=== PATIENT | male | born 1980 | race Caucasian/White ===

== ENCOUNTER → 2017-06-15 | Outpatient (CLI) | payer OTHER ==
--- NOTE | 2017-06-16 03:13 | CT ---
EXAMINATION TYPE: CT abdomen pelvis wo con DATE OF EXAM: 06/15/2017 COMPARISON: NONE HISTORY: 37-year-old male Hematuria, painful and difficulty urinating, dysuria, renal calculi CT DLP: 2703.8 mGycm. Automated exposure control for dose reduction was used. TECHNIQUE: Contiguous axial scanning of the abdomen and pelvis without IV contrast. Coronal and sagit christopher reconstructions performed. FINDINGS: The heart is normal size without pericardial effusion. Lung bases clear without pleural effusion. Liver enlarged measuring 20.6 cm craniocaudal. Otherwise, noncontrasted. The liver, gallbladder, adre nal glands, kidneys, and pancreas show no gross abnormality. Specifically, no nephrolithiasis or hydronephrosis. Spleen mildly enlarged measuring 14.0 cm on axial series. No dilated small bowel, free fluid, or free air. Scattered small mesenteric lymph nodes are present. Appendix not discretely visualized. Mild stool burden. There is diverticulosis of the lower descendin g colon as well as the sigmoid colon. There is a 5 to 6 cm long segment of circumferential wall thickening involving the mid sigmoid colon that also has mild surrounding pericolonic fat stranding. Stranding and inflammatory change with a fi ngerlike extension of soft tissue projects and contacts the bladder dome was also supposed thickening , tiny focus of intraluminal versus intramural air, and a rounded mixed low density lesion at the fred dder dome measuring up to 4.2 cm, sagittal image 85 and coronal image 48, and axial image 145. Refer to the sagittal image 85 further fingerlike extension contiguous from the colon to the bladder dome a s well. No pelvic lymphadenopathy seen. Rectum appears normal. Bones: Mild degenerative spurring of the hips. No osseous destructive process. IMPRESSION: 1. Distal colonic diverticulosis. Findings suggest subacute diverticulitis involving the mid sigmoid . Suspect secondary complication with colovesical fistula formation and focal inflammation along the bladder dome where a tiny focus of either intramural or intraluminal air is also present. Rounded 4.2 cm low-density area here at the bladder dome could represent a mural abscess. 2. Hepatosplenomegaly (liver 20.6 cm and spleen 14.0 cm). 3. No nephrolithiasis or hydronephrosis.
== END | disposition home or self-care (01) ==
LOC: RADCTMAIN 17:31
PROVIDERS: ATTEND Family Medicine
DX: K57.30 Diverticulosis of large intestine without perforation or abscess without bleeding (principal); R16.2 Hepatomegaly with splenomegaly, not elsewhere classified
CPT/HCPCS: 74176

== ENCOUNTER 2017-06-20 10:23 | Inpatient (IN) | payer OTHER ==
[2017-06-20] MEDS ORDERED: SODIUM CHLORIDE 0.9% 1,000 ML IV STA (10:50)
[2017-06-20] MEDS ORDERED: metroNIDAZOLE-NS PMX 500 MG in SALINE 1 100ML.BAG IVPB STA (10:50)
[2017-06-20] MEDS ORDERED: LEVOFLOXACIN 750MG-D5W PMX 750 MG in DEXTROSE/WATER 1 150ML.BAG IVPB STA (10:50)
--- NOTE | 2017-06-20 11:13 | ED ---
General Adult HPI - General Chief complaint: Urogenital Stated complaint: Pelvic pain Time Seen by Provider: 06/20/17 10:35 Source: patient, RN notes reviewed Mode of arrival: ambulatory Limitations: no limitations - History of Present Illness Initial comments: This is a 37-year-old male presents emergency Department complaining that when he urinates only air comes out. Patient states for the last 3 months she's been having hematuria and recent was treated for a urinary tract infection. Patient also had a CAT scan on Wednesday but did not get the results. Patient states she has intermittent left-sided abdominal pain as well. Patient denies any current abdominal pain. Patient denies nausea vomiting or diarrhea. Patient denies any recent fever or chills. Patient denies any back pain. Patient denies any recent injury. Patient denies any recent procedures. - Related Data Allergies Allergy/AdvReac Type Severity Reaction Status Date / Time codeine Allergy Unknown Verified 06/20/17 10:42 Review of Systems ROS Statement: Those systems with pertinent positive or pertinent negative responses have been documented in the HPI. ROS Other: All systems not noted in ROS Statement are negative. Past Medical History Past Medical History: No Reported History History of Any Multi-Drug Resistant Organisms: MRSA Date of last positivie culture/infection: 2014 MDRO Source:: Right arm Past Surgical History: Back Surgery, Orthopedic Surgery Past Psychological History: No Psychological Hx Reported Smoking Status: Never smoker Past Alcohol Use History: Occasional Past Drug Use History: None Reported General Exam - General Exam Comments Initial Comments: GENERAL: Patient is well-developed and well-nourished. Patient is nontoxic and well- hydrated and is in no acute distress. ENT: Neck is soft and supple. No significant lymphadenopathy is noted. Oropharynx is clear. Moist mucous membranes. Neck has full range of motion without eliciting any pain. EYES: The sclera were anicteric and conjunctiva were pink and moist. Extraocular movements were intact and pupils were equal round and reactive to light. Eyelids were unremarkable. PULMONARY: Unlabored respirations. Good breath sounds bilaterally. No audible rales rhonchi or wheezing was noted. CARDIOVASCULAR: There is a regular rate and rhythm without any murmurs gallops or rubs. ABDOMEN: Soft and nontender with normal bowel sounds. No palpable organomegaly was noted. There is no palpable pulsatile mass. SKIN: Skin is clear with no lesions or rashes and otherwise unremarkable. GENITALIA: Genitalia exam was unremarkable NEUROLOGIC: Patient is alert and oriented x3. Cranial nerves II through XII are grossly intact. Motor and sensory are also intact. Normal speech, volume and content. Symmetrical smile. MUSCULOSKELETAL: Normal extremities with adequate strength and full range of motion. LYMPHATICS: No significant lymphadenopathy is noted PSYCHIATRIC: Normal psychiatric evaluation. Limitations: no limitations Course Vital Signs 06/20/17 10:38 Temperature 99.0 F Pulse Rate 89 Respiratory 18 Rate Blood Pressure 140/100 O2 Sat by Pulse 97 Oximetry Medical Decision Making - Medical Decision Making Computed tomography scan that was done as an outpatient showed colovesicular fistula and diverticulitis. I spoke with Dr. Urena and he indicated this was a general surgery problem. I spoke with Dr. Maritza Jacobo she stated she wanted to be called with the lab results. Patient on antibiotics immediately. I spoke with Dr. Hunter she wanted me to admit the patient admitted the patient to Dr. Yanes and Dr. Yanes consult to Dr. Maritza Jacobo - Lab Data Result diagrams: 06/20/17 11:12 06/20/17 11:12 Lab Results 06/20/17 06/20/17 06/20/17 Range/Units 11:12 11:12 11:12 WBC 12.0 H (3.8-10.6) k/uL RBC 5.16 (4.30-5.90) m/uL Hgb 14.3 (13.0-17.5) gm/dL Hct 41.6 (39.0-53.0) % MCV 80.5 (80.0-100.0) fL MCH 27.6 (25.0-35.0) pg MCHC 34.3 (31.0-37.0) g/dL RDW 13.1 (11.5-15.5) % Plt Count 316 (150-450) k/uL Neutrophils % 76 % Lymphocytes % 16 % Monocytes % 5 % Eosinophils % 2 % Basophils % 0 % Neutrophils # 9.2 H (1.3-7.7) k/uL Lymphocytes # 1.9 (1.0-4.8) k/uL Monocytes # 0.6 (0-1.0) k/uL Eosinophils # 0.2 (0-0.7) k/uL Basophils # 0.1 (0-0.2) k/uL Sodium 145 (137-145) mmol/L Potassium 4.1 (3.5-5.1) mmol/L Chloride 107 (98-107) mmol/L Carbon Dioxide 24 (22-30) mmol/L Anion Gap 14 mmol/L BUN 17 (9-20) mg/dL Creatinine 0.70 (0.66-1.25) mg/dL Est GFR (CKD-EPI)AfAm >90 (>60 ml/min/1.73 sqM) Est GFR (CKD-EPI)NonAf >90 (>60 ml/min/1.73 sqM) Glucose 132 H (74-99) mg/dL Plasma Lactic Acid Campbell 1.4 (0.7-2.0) mmol/L Calcium 9.4 (8.4-10.2) mg/dL Total Bilirubin 0.7 (0.2-1.3) mg/dL AST 19 (17-59) U/L ALT 29 (21-72) U/L Alkaline Phosphatase 76 (38-126) U/L Total Protein 6.7 (6.3-8.2) g/dL Albumin 4.1 (3.5-5.0) g/dL Amylase 42 (30-110) U/L Lipase 62 (23-300) U/L Urine Color Urine Appearance (Clear) Urine pH (5.0-8.0) Ur Specific [place] (1.001-1.035) Urine Protein (Negative) Urine Glucose (UA) (Negative) Urine Ketones (Negative) Urine Blood (Negative) Urine Nitrite (Negative) Urine Bilirubin (Negative) Urine Urobilinogen (<2.0) mg/dL Ur Leukocyte Esterase (Negative) Urine RBC (0-5) /hpf Urine WBC (0-5) /hpf Urine Mucus (None) /hpf 06/20/17 Range/Units 11:51 WBC (3.8-10.6) k/uL RBC (4.30-5.90) m/uL Hgb (13.0-17.5) gm/dL Hct (39.0-53.0) % MCV (80.0-100.0) fL MCH (25.0-35.0) pg MCHC (31.0-37.0) g/dL RDW (11.5-15.5) % Plt Count (150-450) k/uL Neutrophils % % Lymphocytes % % Monocytes % % Eosinophils % % Basophils % % Neutrophils # (1.3-7.7) k/uL Lymphocytes # (1.0-4.8) k/uL Monocytes # (0-1.0) k/uL Eosinophils # (0-0.7) k/uL Basophils # (0-0.2) k/uL Sodium (137-145) mmol/L Potassium (3.5-5.1) mmol/L Chloride (98-107) mmol/L Carbon Dioxide (22-30) mmol/L Anion Gap mmol/L BUN (9-20) mg/dL Creatinine (0.66-1.25) mg/dL Est GFR (CKD-EPI)AfAm (>60 ml/min/1.73 sqM) Est GFR (CKD-EPI)NonAf (>60 ml/min/1.73 sqM) Glucose (74-99) mg/dL Plasma Lactic Acid [place] (0.7-2.0) mmol/L Calcium (8.4-10.2) mg/dL Total Bilirubin (0.2-1.3) mg/dL AST (17-59) U/L ALT (21-72) U/L Alkaline Phosphatase (38-126) U/L Total Protein (6.3-8.2) g/dL Albumin (3.5-5.0) g/dL Amylase (30-110) U/L Lipase (23-300) U/L Urine Color Yellow Urine Appearance Cloudy (Clear) Urine pH 7.0 (5.0-8.0) Ur Specific [place] 1.022 (1.001-1.035) Urine Protein 1+ H (Negative) Urine Glucose (UA) Negative (Negative) Urine Ketones Negative (Negative) Urine Blood Small H (Negative) Urine Nitrite Negative (Negative) Urine Bilirubin Negative (Negative) Urine Urobilinogen 3.0 (<2.0) mg/dL Ur Leukocyte Esterase Large H (Negative) Urine RBC 20 H (0-5) /hpf Urine WBC >182 H (0-5) /hpf Urine Mucus Few H (None) /hpf Disposition Clinical Impression: Diverticulitis, Colovesical fistula Disposition: ADMITTED IP TO THIS HOSP Is patient prescribed a controlled substance at d/c from ED?: No Referrals: Panfilo Yanes Jr, DO [Primary Care Provider] - 1-2 days Time of Disposition: 12:32
[2017-06-20 11:24] LABS: Basophils # (A) 0.1 k/uL (0-0.2); Basophils % (A) 0 %; Eosinophils # (A) 0.2 k/uL (0-0.7); Eosinophils % (A) 2 %; HCT 41.6 % (39.0-53.0); HGB 14.3 gm/dL (13.0-17.5); Lymphocytes # (A) 1.9 k/uL (1.0-4.8); Lymphocytes % (A) 16 %; MCH 27.6 pg (25.0-35.0); MCHC 34.3 g/dL (31.0-37.0); MCV 80.5 fL (80.0-100.0); Mean Platelet Volume 6.4; Monocytes # (A) 0.6 k/uL (0-1.0); Monocytes % (A) 5 %; Neutrophils # (A) 9.2 k/uL (1.3-7.7); Neutrophils % (A) 76 %; Platelet Count 316 k/uL (150-450); RBC 5.16 m/uL (4.30-5.90); RDW 13.1 % (11.5-15.5)
--- NOTE | 2017-06-20 11:31 | XR ---
EXAMINATION TYPE: XR KUB , 2 VIEWS DATE OF EXAM ORDERED: 06/20/2017 HISTORY: abdominal pain. COMPARISON: None. FINDINGS: The lung bases are clear. Within the abdomen, the abdominal gas pattern is normal. There is no evidence of obstruction or free air. No unusual calcifications are seen. IMPRESSION: NO ACUTE INTRA-ABDOMINAL ABNORMALITY.
[2017-06-20 11:35] LABS: ALT 29 U/L (21-72); AST 19 U/L (17-59); Albumin 4.1 g/dL (3.5-5.0); Alkaline Phosphatase 76 U/L (38-126); Amylase 42 U/L (30-110); Anion Gap 14 mmol/L; Blood Urea Nitrogen 17 mg/dL (9-20); Calcium 9.4 mg/dL (8.4-10.2); Carbon Dioxide 24 mmol/L (22-30); Chloride 107 mmol/L (98-107); Glucose 132 mg/dL (74-99); Lipase 62 U/L (23-300); Potassium 4.1 mmol/L (3.5-5.1); Sodium 145 mmol/L (137-145); Total Bilirubin 0.7 mg/dL (0.2-1.3); Total Protein 6.7 g/dL (6.3-8.2)
[2017-06-20 12:08] LABS: Appearance,Urine Cloudy (Clear); Bilirubin,Urine Negative (Negative); Blood,Urine Small (Negative); Color,Urine Yellow; Glucose,Urine (UA) Negative (Negative); Ketones,Urine Negative (Negative); Leukocyte Esterase,Urine Large (Negative); Mucus,Urine Few /hpf; Nitrite,Urine Negative (Negative); Protein,Urine 1+ (Negative); RBC,Urine 20 /hpf (0-5); Specific Gravity,Urine 1.022 (1.001-1.035); WBC,Urine >182 /hpf (0-5)
[2017-06-20] MEDS ORDERED: SODIUM CHLORIDE 0.9% 1,000 ML IV ONE (12:32)
[2017-06-20 14:52] VITALS: BMI 47.7
[2017-06-20] MEDS: metroNIDAZOLE-NS PMX 500 MG in SALINE 1 100ML.BAG IVPB SCH ×2 (17:05→23:04)
[2017-06-20] MEDS: ACETAMINOPHEN TAB 325 MG TAB PO PRN (22:16)
[2017-06-21] MEDS: metroNIDAZOLE-NS PMX 500 MG in SALINE 1 100ML.BAG IVPB SCH ×3 (06:18→17:47)
[2017-06-21] MEDS: LEVOFLOXACIN 750MG-D5W PMX 750 MG in DEXTROSE/WATER 1 150ML.BAG IVPB SCH ×2 (07:40→07:41)
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
--- NOTE | 2017-06-21 12:38 | P.GSCN ---
History of Present Illness Consult date: 06/21/17 Reason for Consult: Possible colovesical fistula History of present illness: The patient is a 37-year-old male who noted air mixed with his urine at the end of voiding yesterday morning. He presented to the emergency room where he was evaluated and noted to have pyuria and hematuria. White blood count was 12, 000. Computed tomography scan of the abdomen and pelvis had been performed on and this showed changes suggestive of a colovesical fistula. The patient was admitted for further evaluation. The patient said that he had been seen by Dr. Yanes approximally 2 weeks ago due to hematuria and was placed on Bactrim due to a possible urinary tract infection. Dr. Yanes set up the computed tomography scan which was done on . The patient says that he is actually had blood in his urine several times since the fall of 2016. He says he usually voids every 3-4 hours during the day and only occasionally at night. He says his urine is brownish colored at the present time. He has no previous history of urinary tract infection. The patient says his bowels have been fairly regular. He said he did note some blood in his stool last fall. Recently he has noted some intermittent mild suprapubic and left lower quadrant pain. He had no fever prior to coming to the hospital. Review of Systems - Constitutional Reports chills, Denies fever - Cardiovascular Denies high blood pressure, Denies shortness of breath - Respiratory Denies cough, Denies wheezing - Gastrointestinal Reports as per HPI, Denies nausea, Denies vomiting - Genitourinary Reports as per HPI Past Medical History Past Medical History: No Reported History History of Any Multi-Drug Resistant Organisms: MRSA Year Discovered:: 2014 MDRO Source:: Right arm Past Surgical History: Back Surgery, Orthopedic Surgery Smoking Status: Never smoker Medications and Allergies Allergies Allergy/AdvReac Type Severity Reaction Status Date / Time codeine Allergy Unknown Verified 06/20/17 14:42 Childhood Surgical - Exam Vital Signs Temp Pulse Resp BP Pulse Ox 99.0 F 89 18 140/100 97 06/20/17 10:38 06/20/17 10:38 06/20/17 10:38 06/20/17 10:38 06/20/17 10:38 - General well developed, well nourished, no distress, obese - Neck no lymphadectomy - Respiratory normal respiratory effort - Abdomen Abdomen: soft, no non tender, no organomegaly - Genitourinary normal penis with no external lesions, testicles non-tender Results - Labs 06/20/17 11:12 06/20/17 11:12 Assessment and Plan (1) Colovesical fistula Narrative/Plan: I personally reviewed the patient's computed tomography scan which was performed on 06/15/2017. At that time there appeared to be thickening of the sigmoid colon which abutted the dome of the bladder. There appeared to be a soft tissue mass within the bladder as well as a small amount of air present. The findings would be consistent with diverticulitis which resulted in an abscess that eroded into the bladder. The patient is currently on antibiotics but has not yet undergone colonoscopy for further evaluation. It's unclear whether this will be performed during this hospitalization. The patient can be scheduled for cystoscopy which I can perform in my office sometime after he has been discharged. It's unlikely that the patient has an underlying bladder abnormality. Current Visit: Yes Status: Acute Code(s): N32.1 - VESICOINTESTINAL FISTULA SNOMED Code(s): 86310216
[2017-06-21] MEDS: ACETAMINOPHEN TAB 325 MG TAB PO PRN (13:20)
--- NOTE | 2017-06-21 14:16 | P.HPIM ---
History of Present Illness H&P Date: 06/21/17 Chief Complaint: "urinating air" 37-year-old who presented to the emergency room with a chief complaint of bursts of air when he urinates. Patient reports intermittent hematuria over the past few months. Also complains of left sided abdominal pain. Denies nausea or vomiting. Denies change in bowel patterns. Denies chest pain. Denies shortness of breath. States appetite is good. Patient was evaluated by Dr. Yanes recently and a CT scan was ordered. CT of abdomen and pelvis: Distal colonic diverticulosis. Findings suggest subacute diverticulitis involving the mid sigmoid. Suspect secondary complication with colovesicular fistula formation and focal inflammation along the bladder dome where a tiny focus of either intramural or intraliminal air is also present. Rounded 4.2 cm low-density area at the bladder dome could represent a mural abscess. Hepatosplenomegaly. Liver measures 20.6 cm and spleen 14.0 cm. No evidence of nephrolithiasis or hydronephrosis. Laboratory data: WBC 12.0. Hemoglobin 14.3. Platelet count 316. Sodium 145. Potassium 4.1. BUN 17. Creatinine 0.70. Glucose 132. Lactic acid 1.4. Urinalysis reveals: 1+ proteinuria, small blood, large leukocyte esterase, RBC 20, WBCs greater than 182. The patient was admitted to the hospital under the care of Dr. Yanes. Consultations were placed to general surgery. Review of Systems Those systems with pertinent positive or pertinent negative responses have been documented in the HPI Past Medical History Past Medical History: No Reported History History of Any Multi-Drug Resistant Organisms: MRSA Date of last positivie culture/infection: 2014 MDRO Source:: Right arm Past Surgical History: Back Surgery, Orthopedic Surgery Smoking Status: Never smoker Medications and Allergies Home Medications Medication Instructions Recorded Confirmed Type Acetaminophen Tab [Tylenol] 650 mg PO Q4HR PRN tab 06/21/17 Rx Levofloxacin [Levaquin] 750 mg PO DAILY #10 tab 06/21/17 Rx Psyllium Husk 100% [Metamucil 6 gm PO DAILY #30 packet 06/21/17 Rx Packet] metroNIDAZOLE [Flagyl] 500 mg PO QID #40 tab 06/21/17 Rx Allergies Allergy/AdvReac Type Severity Reaction Status Date / Time codeine Allergy Unknown Verified 06/20/17 14:42 Childhood Physical Exam Vitals: Vital Signs Temp Pulse Pulse Resp BP BP Pulse Ox 06/21/17 07:15 97.9 F 78 16 120/70 95 06/21/17 00:57 98.0 F 82 16 119/79 94 L 06/20/17 23:10 18 06/20/17 20:58 100.9 F H 100 16 119/79 100 06/20/17 16:00 98 16 06/20/17 14:43 98.9 F 102 H 16 144/82 99 06/20/17 14:22 98.1 F 91 18 159/79 96 Intake and Output 06/20/17 06/21/17 06/21/17 22:59 06:59 14:59 Intake Total 758 964 3069 Balance 571 616 5619 Intake: IV 1000 Levofloxacin 750Mg-D5w 100 Pmx 750 mg In Dextrose/ Water 1 150ml.bag @ 100 mls/hr IVPB Q24H [facility] Rx#: [id number] Sodium Chloride 0.9% 1, 800 000 ml @ 100 mls/hr IV . Q10H ONE Rx#:[id number] metroNIDAZOLE-NS PMX 500 100 mg In Saline 1 100ml.bag @ 100 mls/hr IVPB Q6HR [facility] Rx#:[id number] Intake, IV Titration 800 900 Amount Sodium Chloride 0.9% 1, 800 800 000 ml @ 100 mls/hr IV . Q10H ONE Rx#:[id number] metroNIDAZOLE-NS PMX 500 100 mg In Saline 1 100ml.bag @ 100 mls/hr IVPB Q6HR [facility] Rx#:[id number] Oral 118 Other: Voiding Method Toilet Toilet # Voids 1 GENERAL: This is a 37-year-old male in no apparent distress at the time of examination. Pleasant and cooperative. HEENT: Head is atraumatic, normocephalic. Pupils are equal, round, and reactive to light. Sclerae anicteric. Conjunctivae are clear. Mucus membranes of the mouth are moist. Neck is supple. RESPIRATORY: Clear to ausculation. No wheezes, rales, or rhonchi. No use of accessory muscles. Patient maintaining oxygen saturation greater than 92%. No chest wall tenderness is noted on palpation or with deep breathing. CARDIOVASCULAR: Regular rate and rhythm. S1 and S2 noted. No systolic or diastolic murmur auscultated. No JVD noted. No S3 or S4 noted. GASTROINTESTINAL: No distention noted. Abdomen soft and round. Normal active bowel sounds auscultated x 4 quadrants. No pain or tenderness noted upon palpation. INTEGUMENTARY: No cyanosis. No jaundice. No rashes noted. No cellulitis noted. EXTREMITIES: 2+ peripheral pulses. No evidence of peripheral edema. No calf tenderness noted. NEUROLOGIC: Cranial nerves II-XII intact. PSYCHIATRIC: Awake, alert, and oriented X 3. Appropriate affect. Intact judgement and insight. Results CBC & Chem 7: 06/20/17 11:12 06/20/17 11:12 Labs: Microbiology - Last 24 Hours (Table) 06/20/17 11:12 Blood Culture - Preliminary Blood No Growth after 24 hours Thrombosis Risk Factor Assmnt - Choose All That Apply Any of the Below Risk Factors Present?: Yes Each Factor Represents 1 point: Obesity (BMI >25) Other Risk Factors: Yes Each Risk Factor Represents 2 Points: Laparoscopic surgery Other congenital or acquired thrombophilia - If yes, enter type in comment: No Thrombosis Risk Factor Assessment Total Risk Factor Score: 3 Thrombosis Risk Factor Assessment Level: Moderate Risk Assessment and Plan Plan: ASSESSMENT: Diverticulitis of sigmoid colon with colovesicular fistula Complaints of "urinating air", secondary to above Hepatosplenomegaly Morbid obesity: BMI 47.7 PLAN: General surgery on consult. General surgery states patient will likely require surgery in the near future for colon resection and repair of bladder fistula. Urology on consult. Urology recommends cystoscopy on an outpatient basis If patient is cleared for discharge from general surgery, he may be discharged home this afternoon and can follow up with general surgery on an outpatient basis in regards to scheduling procedure. Patient to begin metamucil daily per Dr. Yanes. Rx for levaquin and flagyl sent to the patients preferred pharmacy for 10 days. Nurse practitioner note has been reviewed by physician. Signing provider agrees with the documented findings, assessment, and plan of care.
[2017-06-21] MEDS: PSYLLIUM HUSK 100% 6 GM PACKET PO SCH (16:36)
[2017-06-21] MEDS: SODIUM CHLORIDE 0.9% 1,000 ML IV SCH (16:39)
--- NOTE | 2017-06-21 16:50 | P.PN ---
Progress Note - Text Progress Note Date: 06/21/17 The patient is suspected to have evidence of chronic diverticulitis causing a colovesical fistula. He has not any significant oral intake today. On exam is lesser stable. His evidence soft. We will plan for colonoscopy on Wednesday.
[2017-06-22] MEDS: SODIUM CHLORIDE 0.9% 1,000 ML IV SCH ×2 (00:20→15:21)
[2017-06-22] MEDS: metroNIDAZOLE-NS PMX 500 MG in SALINE 1 100ML.BAG IVPB SCH ×4 (00:21→17:18)
[2017-06-22] MEDS: ACETAMINOPHEN TAB 325 MG TAB PO PRN (05:31)
[2017-06-22] MEDS: PSYLLIUM HUSK 100% 6 GM PACKET PO SCH (07:19)
[2017-06-22] MEDS: LEVOFLOXACIN 750MG-D5W PMX 750 MG in DEXTROSE/WATER 1 150ML.BAG IVPB SCH (07:20)
[2017-06-22] MEDS ORDERED: PEG 3350-NA SULF,BICARB,CL/KCL 4,000 ML BOTTLE PO ONE (10:00)
[2017-06-22] MEDS ORDERED: MORPHINE SULFATE 4 MG/0.8 ML SYRINGE (INJ) IVP PRN (10:05)
--- NOTE | 2017-06-22 13:40 | P.PN ---
Subjective Progress Note Date: 06/22/17 37-year-old who presented to the emergency room with a chief complaint of bursts of air when he urinates. Patient reports intermittent hematuria over the past few months. Also complains of left sided abdominal pain. Denies nausea or vomiting. Denies change in bowel patterns. Denies chest pain. Denies shortness of breath. States appetite is good. Patient was evaluated by Dr. Yanes recently and a CT scan was ordered. CT of abdomen and pelvis: Distal colonic diverticulosis. Findings suggest subacute diverticulitis involving the mid sigmoid. Suspect secondary complication with colovesicular fistula formation and focal inflammation along the bladder dome where a tiny focus of either intramural or intraliminal air is also present. Rounded 4.2 cm low-density area at the bladder dome could represent a mural abscess. Hepatosplenomegaly. Liver measures 20.6 cm and spleen 14.0 cm. No evidence of nephrolithiasis or hydronephrosis. Laboratory data: WBC 12.0. Hemoglobin 14.3. Platelet count 316. Sodium 145. Potassium 4.1. BUN 17. Creatinine 0.70. Glucose 132. Lactic acid 1.4. Urinalysis reveals: 1+ proteinuria, small blood, large leukocyte esterase, RBC 20, WBCs greater than 182. The patient was admitted to the hospital under the care of Dr. Yanes. Consultations were placed to general surgery. 06/22/2017 Patient seen and examined at the bedside on rounds with Dr. Yanes. Dr. Infante evaluated the patient yesterday and he is scheduled for colonoscopy tomorrow. Patient remains on levaquin and flagyl. Blood cultures are negative at the 48 hour dayanna. Vital signs remain stable. He denies any concerns or complaints at this time. Objective - Vital Signs Vital signs: Vital Signs Temp 98.4 F 06/22/17 07:26 Pulse 73 06/22/17 07:26 Resp 17 06/22/17 00:42 BP 117/80 06/22/17 07:26 Pulse Ox 97 06/22/17 07:26 Intake & Output 06/21/17 06/22/17 06/22/17 18:59 06:59 18:59 Intake Total 1360 1800 Balance 1360 1800 Intake: IV 1000 200 Levofloxacin 750Mg-D5w 100 Pmx 750 mg In Dextrose/ Water 1 150ml.bag @ 100 mls/hr IVPB Q24H [facility] Rx#: [id number] Sodium Chloride 0.9% 1, 800 000 ml @ 100 mls/hr IV . Q10H [facility] Rx#:[id number] metroNIDAZOLE-NS PMX 500 100 200 mg In Saline 1 100ml.bag @ 100 mls/hr IVPB Q6HR [facility] Rx#:[id number] Intake, IV Titration 1600 Amount Sodium Chloride 0.9% 1, 1600 000 ml @ 100 mls/hr IV . Q10H [facility] Rx#:[id number] Oral 360 Other: Voiding Method Toilet Toilet Toilet # Voids 1 2 - Exam GENERAL: This is a 37-year-old male in no apparent distress at the time of examination. Pleasant and cooperative. HEENT: Head is atraumatic, normocephalic. Pupils are equal, round, and reactive to light. Sclerae anicteric. Conjunctivae are clear. Mucus membranes of the mouth are moist. Neck is supple. RESPIRATORY: Clear to ausculation. No wheezes, rales, or rhonchi. No use of accessory muscles. Patient maintaining oxygen saturation greater than 92%. No chest wall tenderness is noted on palpation or with deep breathing. CARDIOVASCULAR: Regular rate and rhythm. S1 and S2 noted. No systolic or diastolic murmur auscultated. No JVD noted. No S3 or S4 noted. GASTROINTESTINAL: No distention noted. Abdomen soft and round. Normal active bowel sounds auscultated x 4 quadrants. No pain or tenderness noted upon palpation. INTEGUMENTARY: No cyanosis. No jaundice. No rashes noted. No cellulitis noted. EXTREMITIES: 2+ peripheral pulses. No evidence of peripheral edema. No calf tenderness noted. NEUROLOGIC: Cranial nerves II-XII intact. PSYCHIATRIC: Awake, alert, and oriented X 3. Appropriate affect. Intact judgement and insight. - Labs CBC & Chem 7: 06/20/17 11:12 06/20/17 11:12 Labs: Microbiology - Last 24 Hours (Table) 06/20/17 11:12 Blood Culture - Preliminary Blood No Growth after 48 hours Assessment and Plan Plan: ASSESSMENT: Diverticulitis of sigmoid colon with colovesicular fistula Complaints of "urinating air", secondary to above Hepatosplenomegaly Morbid obesity: BMI 47.7 PLAN: General surgery on consult. Patient scheduled for colonoscopy tomorrow with Dr. Infante Urology on consult. Urology recommends cystoscopy on an outpatient basis Continue metamucil daily per Dr. Yanes. Rx for levaquin and flagyl sent to the patients preferred pharmacy for 10 days. Possible discharge home tomorrow after colonoscopy, then patient may follow up outpatient with general surgery to schedule repair of fistula Nurse practitioner note has been reviewed by physician. Signing provider agrees with the documented findings, assessment, and plan of care.
[2017-06-23] MEDS: metroNIDAZOLE-NS PMX 500 MG in SALINE 1 100ML.BAG IVPB SCH ×5 (00:53→23:32)
[2017-06-23] MEDS: SODIUM CHLORIDE 0.9% 1,000 ML IV SCH ×4 (00:56→23:36)
[2017-06-23] MEDS: ACETAMINOPHEN TAB 325 MG TAB PO PRN (03:02)
[2017-06-23] MEDS: LACTATED RINGERS 1,000 ML IV SCH (06:29)
[2017-06-23 07:43] VITALS: RESP 16
[2017-06-23] MEDS: LEVOFLOXACIN 750MG-D5W PMX 750 MG in DEXTROSE/WATER 1 150ML.BAG IVPB SCH (07:45)
--- NOTE | 2017-06-23 08:55 | P.PN ---
Progress Note - Text Progress Note Date: 06/22/17 the patient is resting comfortably in his bed. He states he has some left- sided abdominal pain. He has started his bowel prep. On exam his vital signs are stable. His abdomen soft. There is some tenderness on the left abdominal wall. There is no rebound or guarding. Chronic diverticulitis with colovesical fistula. Patient will undergo colonoscopy in the a.m.
[2017-06-23] MEDS: PSYLLIUM HUSK 100% 6 GM PACKET PO SCH (10:09)
[2017-06-23] MEDS ORDERED: IV FLUID CONTINUATION 1,000 ML IV ONE (13:43)
[2017-06-23] MEDS ORDERED: PROPOFOL 10 MG/ML 20 ML VIAL IV ONE (13:43)
[2017-06-23] MEDS ORDERED: LIDOCAINE 1% INJ 10MG/ML (20 ML MDV) ONE (13:43)
--- NOTE | 2017-06-23 14:07 | P.OP ---
Date of Procedure: 06/23/17 Preoperative Diagnosis: Chronic diverticulitis Postoperative Diagnosis: Chronic diverticulitis with severe diverticulosis of sigmoid colon Procedure(s) Performed: Colonoscopy Anesthesia: MAC Surgeon: Kody Infante Pathology: none sent Condition: stable Disposition: PACU Description of Procedure: The patient's placed on the endoscopy table in the lateral position. He received IV sedation. Digital rectal exam was performed which revealed no abnormalities. The flexible colonoscope was then placed patient anus and passed throughout the entire colon. The ileocecal valve was visualized. The cecum, ascending and transverse colon appeared normal. In the descending and; there was significant diverticular changes. There was severe diverticulosis sigmoid colon. There were several very large diverticula seen. Scope was then brought back the rectum and this appeared normal. Scope was withdrawn for patient.
--- NOTE | 2017-06-23 17:26 | P.PN ---
Progress Note - Text Progress Note Date: 06/23/17 Patient underwent colonoscopy today. He is extensive diverticular changes of the sigmoid colon. The patient will remain on IV antibiotics. He'll be hopefully discharge home tomorrow. We will plan for outpatient low anterior section once his current acute diverticulitis flareup has resolved.
[2017-06-24] MEDS: LACTATED RINGERS 1,000 ML IV SCH (06:08)
[2017-06-24] MEDS: metroNIDAZOLE-NS PMX 500 MG in SALINE 1 100ML.BAG IVPB SCH (06:10)
[2017-06-24] MEDS: PSYLLIUM HUSK 100% 6 GM PACKET PO SCH (08:32)
[2017-06-24] MEDS: LEVOFLOXACIN 750MG-D5W PMX 750 MG in DEXTROSE/WATER 1 150ML.BAG IVPB SCH (08:32)
[2017-06-24 09:07] VITALS: BP 132/88; PULSE 75; TEMP 98.4
[2017-06-24] MEDS ORDERED: MORPHINE ORAL SOLN 10 MG/5 ML CUP PO PRN (10:49)
[2017-06-24] MEDS ORDERED: metroNIDAZOLE 500 MG TAB PO SCH (12:00)
[2017-06-25] MEDS ORDERED: LEVOFLOXACIN 750 MG TAB PO SCH (09:00)
== END 2017-06-24 14:07 | disposition home or self-care (01) | DRG 392 ==
LOC: EC 10:23 → 3SUR 12:33
PROVIDERS: ADMIT Family Medicine; ATTEND Family Medicine
PROC: 0DJD8ZZ Inspection of Lower Intestinal Tract, Via Natural or Artificial Opening Endoscopic (ICD-10-PCS; principal; 2017-06-23 12:05)
DX: K57.32 Diverticulitis of large intestine without perforation or abscess without bleeding (principal); Z68.42 Body mass index [BMI] 45.0-49.9, adult; R16.2 Hepatomegaly with splenomegaly, not elsewhere classified; E66.01 Morbid (severe) obesity due to excess calories; Z88.5 Allergy status to narcotic agent; Z86.14 Personal history of Methicillin resistant Staphylococcus aureus infection
CPT/HCPCS: 36415; 45378; 74018; 80053; 81001; 82150; 83605; 83690; 85025; 87040; 96361; 96365; 96366; 96368; 99285

== ENCOUNTER → 2017-07-12 | Outpatient (CLI) | payer OTHER ==
[2017-07-12 11:23] LABS: Potassium 4.5 mmol/L (3.5-5.1)
[2017-07-12 11:40] LABS: HCT 45.7 % (39.0-53.0); HGB 14.8 gm/dL (13.0-17.5); MCH 26.5 pg (25.0-35.0); MCHC 32.3 g/dL (31.0-37.0); MCV 81.9 fL (80.0-100.0); Mean Platelet Volume 6.8; Platelet Count 323 k/uL (150-450); RBC 5.59 m/uL (4.30-5.90); RDW 13.4 % (11.5-15.5); WBC 8.1 k/uL (3.8-10.6)
== END ==
LOC: LABPAT 10:38
PROVIDERS: ATTEND Surgery
DX: Z01.812 Encounter for preprocedural laboratory examination (principal); K57.33 Diverticulitis of large intestine without perforation or abscess with bleeding
CPT/HCPCS: 36415; 80051; 85027

== ENCOUNTER 2017-07-19 06:05 | Inpatient (IN) | payer OTHER ==
[2017-07-08 13:50] VITALS: BMI 46.0
[~2017-07-19 06:05] MED LIST: HEPARIN SODIUM,PORCINE 5,000 UNIT/ML 1 ML VIAL SQ ONE; metroNIDAZOLE-NS PMX 500 MG in SALINE 1 100ML.BAG IVPB ONE
[2017-07-19] MEDS ORDERED: DEXAMETHASONE SOD PHOSPHATE 10 MG/ML 1 ML VIAL IV ONE (06:09)
[2017-07-19] MEDS ORDERED: MORPHINE SULFATE 4 MG/ML SYRINGE IV PRN (06:09)
[2017-07-19] MEDS ORDERED: LIDOCAINE 1% 20 ML VIAL (10MG/ML) FOR IV START INTRADERMA PRN (06:09)
[2017-07-19] MEDS ORDERED: ONDANSETRON 4 MG/2 ML VIAL IVP ONE (06:09)
[2017-07-19] MEDS ORDERED: MIDAZOLAM 2 MG/2 ML VIAL IV PRN (06:09)
[2017-07-19] MEDS: LACTATED RINGERS 1,000 ML IV SCH (06:56)
[2017-07-19] MEDS ORDERED: ONDANSETRON ODT 4 MG TAB PO ONE (06:56)
[2017-07-19] MEDS ORDERED: fentaNYL (PF) 50 MCG/ML 2 ML AMP IVP ONE (07:11)
[2017-07-19] MEDS ORDERED: BUPIVACAINE (PF) 0.5% 31.3 ML, fentaNYL (PF) 625 MCG in SODIUM CHLORIDE 0.9% 206 ML EPIDURAL PRN (07:20)
[2017-07-19] MEDS ORDERED: NALOXONE 0.4 MG/ML 1 ML VIAL IV PRN (07:20)
--- NOTE | 2017-07-19 07:53 | P.GSHP ---
History of Present Illness H&P Date: 07/19/17 Chief Complaint: History of diverticulitis with colovesical fistula a This is a 37-year-old male who has had history of diverticulitis. Patient has a known colovesical fistula. Patient presents today for low anterior resection. Patient's aware the risk of possible colostomy., Wound infection and bleeding. 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 Date of last positivie culture/infection: 2014 MDRO Source:: Right arm Past Surgical History: Back Surgery, Orthopedic Surgery Past Anesthesia/Blood Transfusion Reactions: No Reported Reaction Additional Past Anesthesia/Blood Transfusion Reaction / Comment(s): no hx blood transfusion Smoking Status: Never smoker - Past Family History Father Family Medical History: No Reported History Medications and Allergies Home Medications Medication Instructions Recorded Confirmed Type Acetaminophen Tab [Tylenol] 650 mg PO Q4HR PRN tab 06/21/17 07/19/17 Rx Psyllium Husk 100% [Metamucil 6 gm PO DAILY #30 packet 06/21/17 07/19/17 Rx Packet] Allergies Allergy/AdvReac Type Severity Reaction Status Date / Time codeine Allergy Unknown Verified 07/19/17 06:32 Childhood Surgical - Exam Vital Signs Temp Pulse Resp BP Pulse Ox 98.4 F 98 18 140/91 99 07/19/17 06:24 07/19/17 06:24 07/19/17 06:24 07/19/17 06:24 07/19/17 06:24 Morbid obesity BMI 46 - General well developed - Eyes PERRL - ENT normal pinna - Neck no masses - Respiratory normal expansion - Cardiovascular Rhythm: regular - Abdomen Abdomen: soft, non tender Results - Labs 07/19/17 06:55 Diabetes panel 07/19/17 Range/Units 06:55 Potassium 4.3 (3.5-5.1) mmol/L Pituitary panel 07/19/17 Range/Units 06:55 Potassium 4.3 (3.5-5.1) mmol/L Adrenal panel 07/19/17 Range/Units 06:55 Potassium 4.3 (3.5-5.1) mmol/L Assessment and Plan Assessment: History of diverticulitis. We'll perform low anterior section.
[2017-07-19] MEDS ORDERED: SUCCINYLCHOLINE CHLORIDE VIAL 200 MG/10 ML VIAL IV ONE (07:58)
[2017-07-19] MEDS ORDERED: ROCURONIUM BROMIDE 10 MG/ML 10 ML VIAL IV ONE (07:58)
[2017-07-19] MEDS ORDERED: MIDAZOLAM 2 MG/2 ML VIAL ONE (07:58)
[2017-07-19] MEDS ORDERED: PROPOFOL 10 MG/ML 20 ML VIAL IV ONE (07:58)
[2017-07-19] MEDS ORDERED: fentaNYL (PF) 50 MCG/ML 2 ML AMP ONE (07:58)
[2017-07-19] MEDS ORDERED: LIDOCAINE 1% INJ 10MG/ML (20 ML MDV) ONE (07:58)
[2017-07-19] MEDS ORDERED: NEOSTIGMINE 1 MG/ML 10 ML VIAL ONE (07:58)
[2017-07-19] MEDS ORDERED: GLYCOPYRROLATE 0.2 MG/ML 2 ML VIAL ONE (07:58)
[2017-07-19] MEDS ORDERED: LACTATED RINGERS 1,000 ML IV ONE (09:47)
[2017-07-19] MEDS ORDERED: fentaNYL (PF) 50 MCG/ML 2 ML AMP INTRATHECA ONE (11:45)
[2017-07-19] MEDS ORDERED: BENZOCAINE/MENTHOL LOZENG 1 EACH LOZENGE MUCOUS MEM PRN (11:47)
[2017-07-19] MEDS ORDERED: METOCLOPRAMIDE 5 MG/ML 2 ML VIAL IVP PRN (11:47)
[2017-07-19] MEDS ORDERED: ONDANSETRON 4 MG/2 ML VIAL IVP PRN (11:47)
[2017-07-19] MEDS: D5-0.45% NACL WITH KCL 20MEQ/L 1,000 ML IV SCH ×2 (12:28→20:02)
[2017-07-19] MEDS: HEPARIN SODIUM,PORCINE 5,000 UNIT/ML 1 ML VIAL SQ SCH ×2 (16:13→23:34)
[2017-07-19] MEDS: FAMOTIDINE 20 MG/2 ML VIAL IV SCH (20:02)
[2017-07-19] MEDS: ALVIMOPAN 12 MG CAPSULE PO SCH (22:23)
[2017-07-20] MEDS: D5-0.45% NACL WITH KCL 20MEQ/L 1,000 ML IV SCH ×3 (04:30→21:49)
[2017-07-20] MEDS: ALVIMOPAN 12 MG CAPSULE PO SCH ×2 (05:28→17:50)
--- NOTE | 2017-07-20 07:30 | P.PN ---
Progress Note - Text 07/20 714am 37-year-old male status post low anterior resection by Dr. pérez. Epidural solution is running at 12 mL an hour with a VAS of 5, no complains of nausea vomiting no complains of sensory or motor deficit. Plan to continue epidural infusion and the made decided to increase the concentration level of the medication in the epidural infusion.
[2017-07-20 08:17] LABS: Basophils % (A) 0 %; Eosinophils % (A) 0 %; HCT 38.4 % (39.0-53.0); HGB 12.4 gm/dL (13.0-17.5); Lymphocytes # (A) 1.9 k/uL (1.0-4.8); Lymphocytes % (A) 15 %; MCH 26.7 pg (25.0-35.0); MCHC 32.3 g/dL (31.0-37.0); MCV 82.5 fL (80.0-100.0); Mean Platelet Volume 6.9; Monocytes # (A) 0.7 k/uL (0-1.0); Monocytes % (A) 5 %; Neutrophils # (A) 9.7 k/uL (1.3-7.7); Neutrophils % (A) 77 %; Platelet Count 297 k/uL (150-450); RBC 4.65 m/uL (4.30-5.90); RDW 13.7 % (11.5-15.5); WBC 12.6 k/uL (3.8-10.6)
[2017-07-20] MEDS: LACTATED RINGERS 1,000 ML IV SCH (08:38)
[2017-07-20 08:44] LABS: ALT 48 U/L (21-72); AST 23 U/L (17-59); Albumin 3.4 g/dL (3.5-5.0); Alkaline Phosphatase 59 U/L (38-126); Anion Gap 10 mmol/L; Blood Urea Nitrogen 13 mg/dL (9-20); Calcium 8.8 mg/dL (8.4-10.2); Carbon Dioxide 26 mmol/L (22-30); Chloride 102 mmol/L (98-107); Glucose 122 mg/dL (74-99); Potassium 4.8 mmol/L (3.5-5.1); Sodium 138 mmol/L (137-145); Total Bilirubin 0.6 mg/dL (0.2-1.3); Total Protein 5.9 g/dL (6.3-8.2)
[2017-07-20] MEDS: FAMOTIDINE 20 MG/2 ML VIAL IV SCH (08:53)
[2017-07-20] MEDS: HEPARIN SODIUM,PORCINE 5,000 UNIT/ML 1 ML VIAL SQ SCH ×3 (08:53→23:18)
--- NOTE | 2017-07-20 10:43 | P.PN ---
Subjective Progress Note Date: 07/20/17 37-year-old male seen and examined. Had been up ambulating in the ruby. Per anesthesia Epidural in place for pain control. surgical dressing dry. 2 JR drains right and left in place serous drainage. Bowel tones present. Reports no nausea vomiting. Indwelling Sarmiento catheter in place. Patient is postop 19 of July low anterior resection for diverticulitis Objective - Vital Signs Vital signs: Vital Signs Temp 98.1 F 07/20/17 07:30 Pulse 81 07/20/17 07:30 Resp 18 07/20/17 02:08 BP 119/80 07/20/17 07:30 Pulse Ox 98 07/20/17 07:30 Intake & Output 07/19/17 07/20/17 07/20/17 18:59 06:59 18:59 Intake Total 0 1000 Output Total 400 870 30 Balance 1650 130 -30 Intake: IV 2049 Intake, IV Titration 1000 Amount D5-0.45% NaCl with KCl 1000 20Meq/l 1,000 ml @ 125 mls/hr IV .Q8H [facility] Rx#: [id number] Output: Drainage 70 30 Left Abdomen 50 20 Right Abdomen 20 10 Urine 200 800 Estimated Blood Loss 200 Other: Voiding Method Indwelling Catheter Indwelling Catheter Indwelling Catheter - Exam GENERAL APPEARANCE: 37-year-old male patient is alert, oriented, in no acute distress. States pain medication effective for pain control VITAL SIGNS: Reviewed HEENT: Head is normocephalic and atraumatic. Pupils are equal and reactive. The nares are patent. Oropharynx is clear without lesions. NECK: Supple without lymphadenopathy. Traches midline. HEART: S1, S2. Regular rate and rhythm. No murmur noted denying chest pain LUNGS: No crackles or wheezes are heard. Sats are 98% on room air ABDOMEN: Soft, surgical tenderness appropriate. Surgical dressing site dry. JR draining right and left times 2 serous drainage noted nondistended with good bowel sounds. No peritoneal signs. No palpable organomegaly or masses. Indwelling Sarmiento catheter in place states is belching no stool not passing gas prevana wound system in place EXTREMITIES: Normal skin color and turgor. No cyanosis, rash, ulceration, clubbing or edema. Radial pedal pulses are 2/4 bilaterally. Venodyne's on bilateral lower extremities numbness or tingling to the lower extremities able to ambulate with no difficulty NEUROLOGICAL: No focal deficits. Strength and sensation are grossly intact. - Labs CBC & Chem 7: 07/20/17 07:13 07/20/17 07:13 Labs: Abnormal Lab Results - Last 24 Hours (Table) 07/20/17 07/20/17 Range/Units 07:13 07:13 WBC 12.6 H (3.8-10.6) k/uL Hgb 12.4 L (13.0-17.5) gm/dL Hct 38.4 L (39.0-53.0) % Neutrophils # 9.7 H (1.3-7.7) k/uL Glucose 122 H (74-99) mg/dL Total Protein 5.9 L (6.3-8.2) g/dL Albumin 3.4 L (3.5-5.0) g/dL Assessment and Plan Assessment: Impression History of diverticulitis with a known colovesical fistula Postop July 19 low anterior resection for diverticulitis Morbid obesity BMI 46 Mild leukocytosis suspect reactive Plan Continue postop surgical care Epidural for pain control per anesthesia DVT and GI prophylaxis Encourage use of incentive spirometer Encourage ambulation IV fluid at 125 an hour we'll titrate down when oral intake improved Continue clear liquid diet The above impression and plan of care have been discussed and directed by signing physician. Tyesha Allen nurse practitioner acting as scribe for signing physician.
--- NOTE | 2017-07-20 12:14 | P.CONS ---
History of Present Illness - Reason for Consult Consult date: 07/20/17 Medical Management - Chief Complaint s/p low anterior resection - History of Present Illness 37-year-old male who underwent low anterior resection by Dr. Infante secondary to diverticulitis. The patient was recently admitted in May 2017 for diverticulitis with colovesicular fistula formation. Dr. Yanes was consulted for medical management. The patient was seen and examined at the bedside. Spouse present. No operative report is available at this time but spouse states she was told that the patient had an abscess that was removed along with repair of fistula. Patient has JR drain x 2 with serosanguineous drainage present. Prevara wound vac is noted. Epidural is infusing per anesthesia. Patient states his pain is controlled at this time. Indwelling urinary catheter is present with clear yellow urine. Patient states he is tolerating clear liquids. Denies flatus. Hemoglobin is 12.4. Potassium 4.8. Vital signs are stable. 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 Year Discovered:: 2014 MDRO Source:: Right arm Past Surgical History: Back Surgery, Orthopedic Surgery Past Anesthesia/Blood Transfusion Reactions: No Reported Reaction Additional Past Anesthesia/Blood Transfusion Reaction / Comm: no hx blood transfusion Smoking Status: Never smoker - Past Family History Father Family Medical History: No Reported History Medications and Allergies Home Medications Medication Instructions Recorded Confirmed Type Acetaminophen Tab [Tylenol] 650 mg PO Q4HR PRN tab 06/21/17 07/19/17 Rx Psyllium Husk 100% [Metamucil 6 gm PO DAILY #30 packet 06/21/17 07/19/17 Rx Packet] Allergies Allergy/AdvReac Type Severity Reaction Status Date / Time codeine Allergy Unknown Verified 07/19/17 11:44 Childhood Physical Exam Vitals: Vital Signs Temp Pulse Resp BP BP Pulse Ox 07/20/17 07:30 98.1 F 81 119/80 98 07/20/17 02:08 99 F 98 18 118/79 98 07/19/17 20:00 99.3 F 105 H 18 101/67 98 07/19/17 14:30 90 106/72 100 07/19/17 14:00 95 105/71 100 07/19/17 13:45 92 112/75 100 07/19/17 13:30 93 115/77 100 07/19/17 13:15 93 114/76 100 07/19/17 13:00 93 112/77 100 07/19/17 12:45 90 116/76 100 07/19/17 12:30 98.8 F 93 16 125/83 100 07/19/17 12:15 94 16 126/75 100 07/19/17 12:01 83 14 133/73 100 Intake and Output 07/19/17 07/20/17 07/20/17 22:59 06:59 14:59 Intake Total 1000 Output Total 870 30 Balance 130 -30 Intake: Intake, IV Titration 1000 Amount D5-0.45% NaCl with KCl 1000 20Meq/l 1,000 ml @ 125 mls/hr IV .Q8H [facility] Rx#: [id number] Output: Drainage 70 30 Left Abdomen 50 20 Right Abdomen 20 10 Urine 800 Other: Voiding Method Indwelling Catheter Indwelling Catheter GENERAL: This is a 37-year-old male in no apparent distress at the time of examination. Pleasant and cooperative. HEENT: Head is atraumatic, normocephalic. Pupils are equal, round, and reactive to light. Sclerae anicteric. Conjunctivae are clear. Mucus membranes of the mouth are moist. Neck is supple. RESPIRATORY: Clear to ausculation. No wheezes, rales, or rhonchi. No use of accessory muscles. Patient maintaining oxygen saturation greater than 92%. No chest wall tenderness is noted on palpation or with deep breathing. CARDIOVASCULAR: Regular rate and rhythm. S1 and S2 noted. No systolic or diastolic murmur auscultated. No JVD noted. No S3 or S4 noted. GASTROINTESTINAL: Soft and rounded. Nondistended. JR drain x 2 intact with serosanguineous drainage noted. Prevara wound vac intact. Bowel sounds auscultated. No flatus. INTEGUMENTARY: No cyanosis. No jaundice. No rashes noted. No cellulitis noted. EXTREMITIES: 2+ peripheral pulses. No evidence of peripheral edema. No calf tenderness noted. NEUROLOGIC: Cranial nerves II-XII intact. PSYCHIATRIC: Awake, alert, and oriented X 3. Appropriate affect. Intact judgement and insight. Results CBC & Chem 7: 07/20/17 07:13 07/20/17 07:13 Labs: Abnormal Lab Results - Last 24 Hours (Table) 07/20/17 07/20/17 Range/Units 07:13 07:13 WBC 12.6 H (3.8-10.6) k/uL Hgb 12.4 L (13.0-17.5) gm/dL Hct 38.4 L (39.0-53.0) % Neutrophils # 9.7 H (1.3-7.7) k/uL Glucose 122 H (74-99) mg/dL Total Protein 5.9 L (6.3-8.2) g/dL Albumin 3.4 L (3.5-5.0) g/dL Assessment and Plan Plan: ASSESSMENT: Recent admission for diverticulitis and colovesical fistula S/P low anterior resection, POD #1, secondary to above Leukocytosis, likely reactive, no evidence of sepsis at this time Morbid obesity: BMI 46.0 History of MRSA of right arm, 2015 PLAN: Continue postop management per Dr. Infante Epidural per anesthesia. DC urinary catheter after epidural is discontinued Continue clear liquid diet. Await return of bowel function Continue IV fluids per surgery. DC when PO intake increases Activity as tolerated Home meds as appropriate Monitor labs GI prophylaxis: Pepcid 20mg PO BID DVT prophylaxis: Heparin 5000 units subcu every 8 hours Monitor vital signs and address as appropriate Discharge planning: Patient to return home when stable Further recommendations pending patient's course Nurse practitioner note has been reviewed by physician. Signing provider agrees with the documented findings, assessment, and plan of care.
[2017-07-20] MEDS ORDERED: NALOXONE 0.4 MG/ML 1 ML VIAL IV PRN (16:13)
[2017-07-20] MEDS ORDERED: HYDROmorphone PCA 5 MG/25 ML SYRINGE IV PRN (16:13)
[2017-07-20] MEDS: FAMOTIDINE 20 MG TAB PO SCH (21:49)
[2017-07-20] MEDS: MORPHINE SULFATE 4 MG/ML SYRINGE IVP PRN (21:57)
[2017-07-21] MEDS: LACTATED RINGERS 1,000 ML IV SCH (02:29)
[2017-07-21] MEDS: MORPHINE SULFATE 4 MG/ML SYRINGE IVP PRN ×6 (03:25→23:42)
[2017-07-21] MEDS: ALVIMOPAN 12 MG CAPSULE PO SCH ×2 (05:07→19:54)
[2017-07-21] MEDS: D5-0.45% NACL WITH KCL 20MEQ/L 1,000 ML IV SCH ×3 (05:07→19:54)
[2017-07-21] MEDS: HEPARIN SODIUM,PORCINE 5,000 UNIT/ML 1 ML VIAL SQ SCH ×3 (08:27→23:42)
[2017-07-21] MEDS: FAMOTIDINE 20 MG TAB PO SCH ×2 (08:27→19:54)
--- NOTE | 2017-07-21 12:27 | P.PN ---
Subjective Progress Note Date: 07/21/17 37-year-old male seen this morning resting in bed "had a terrible night pain issues epidural catheter needed to be removed apparently was kinked" states has been up ambulating in the hallway this morning not passing gas no bowel movement indwelling Sarmiento catheter in place states using morphine for pain control. Currently surgical dressing site dry abdomen soft nondistended with surgical tenderness appropriate tolerating a clear liquid diet with no nausea no vomiting postop 19 of July low anterior resection for diverticulitis Objective - Vital Signs Vital signs: Vital Signs Temp 98.4 F 07/21/17 08:27 Pulse 79 07/21/17 08:27 Resp 16 07/20/17 23:15 BP 131/81 07/21/17 08:27 Pulse Ox 98 07/21/17 08:27 Intake & Output 07/20/17 07/21/17 07/21/17 18:59 06:59 18:59 Output Total 55 1090 Balance -55 -1090 Output: Drainage 55 40 Left Abdomen 35 25 Right Abdomen 20 15 Urine 1050 Other: Voiding Method Indwelling Catheter Indwelling Catheter - Exam Physical exam 37 -year-old male sitting up in a chair this morning states did ambulate once in the hallway this morning Lungs adequate air movement bilaterally on room air sats 98% no shortness of breath noted Heart S1-S2 audible and regular Abdomen soft not distended surgical tenderness appropriate few hypoactive bowel tones indwelling Sarmiento catheter in place tolerating clear liquid diet no nausea vomiting prevera wound system in place JR drains to in the right and one in the left serous drainage noted Extremities Venodyne's on to the bilateral lower extremities - Labs CBC & Chem 7: 07/20/17 07:13 07/20/17 07:13 Assessment and Plan Assessment: Impression History of diverticulitis with a known colovesical fistula Postop July 19 low anterior resection for diverticulitis Morbid obesity BMI 46 Mild leukocytosis suspect reactive Plan Continue postop surgical care Pain control Do not remove the indwelling Sarmiento catheter DVT and GI prophylaxis Encourage use of incentive spirometer Encourage ambulation IV fluid at 125 an hour we'll titrate down when oral intake improved Continue clear liquid diet The above impression and plan of care have been discussed and directed by signing physician. Tyesha Allne nurse practitioner acting as scribe for signing physician.
--- NOTE | 2017-07-21 15:01 | P.PN ---
Subjective Progress Note Date: 07/21/17 37-year-old male who underwent low anterior resection by Dr. nIfante secondary to diverticulitis. The patient was recently admitted in May 2017 for diverticulitis with colovesicular fistula formation. Dr. Yanes was consulted for medical management. 07/20/2017 The patient was seen and examined at the bedside. Spouse present. No operative report is available at this time but spouse states she was told that the patient had an abscess that was removed along with repair of fistula. Patient has JR drain x 2 with serosanguineous drainage present. Prevara wound vac is noted. Epidural is infusing per anesthesia. Patient states his pain is controlled at this time. Indwelling urinary catheter is present with clear yellow urine. Patient states he is tolerating clear liquids. Denies flatus. Hemoglobin is 12.4. Potassium 4.8. Vital signs are stable. 07/21/2017 Patient seen and examined at the bedside. Patient states he had a "rough night" . He reports that his epidural catheter was removed last night and he was placed on Dilaudid which he did not tolerate. He is now receiving Morphine that he states is controlling his pain well. JR drain x 2 intact. Prevara wound vac intact. Patient denies passing flatus. No bowel movement. Urinary catheter is intact with clear yellow urine. Case discussed with Dr. Infante. He would like to keep urinary catheter in at this time as patient had an abscess very close to the bladder wall and would like to keep the bladder emptied to reduce risk of infection. Vital signs are stable. Remains afebrile. Objective - Vital Signs Vital signs: Vital Signs Temp 98.4 F 07/21/17 08:27 Pulse 79 07/21/17 08:27 Resp 16 07/20/17 23:15 BP 131/81 07/21/17 08:27 Pulse Ox 98 07/21/17 08:27 Intake & Output 07/20/17 07/21/17 07/21/17 18:59 06:59 18:59 Output Total 55 1090 Balance -55 -1090 Output: Drainage 55 40 Left Abdomen 35 25 Right Abdomen 20 15 Urine 1050 Other: Voiding Method Indwelling Catheter Indwelling Catheter - Exam GENERAL: This is a 37-year-old male in no apparent distress at the time of examination. Pleasant and cooperative. HEENT: Head is atraumatic, normocephalic. Pupils are equal, round, and reactive to light. Sclerae anicteric. Conjunctivae are clear. Mucus membranes of the mouth are moist. Neck is supple. RESPIRATORY: Clear to ausculation. No wheezes, rales, or rhonchi. No use of accessory muscles. Patient maintaining oxygen saturation greater than 92%. No chest wall tenderness is noted on palpation or with deep breathing. CARDIOVASCULAR: Regular rate and rhythm. S1 and S2 noted. No systolic or diastolic murmur auscultated. No JVD noted. No S3 or S4 noted. GASTROINTESTINAL: Soft and rounded. Nondistended. JR drain x 2 intact with serosanguineous drainage noted. Prevara wound vac intact. Bowel sounds auscultated. No flatus. INTEGUMENTARY: No cyanosis. No jaundice. No rashes noted. No cellulitis noted. EXTREMITIES: 2+ peripheral pulses. No evidence of peripheral edema. No calf tenderness noted. NEUROLOGIC: Cranial nerves II-XII intact. PSYCHIATRIC: Awake, alert, and oriented X 3. Appropriate affect. Intact judgement and insight. - Labs CBC & Chem 7: 07/20/17 07:13 07/20/17 07:13 Assessment and Plan Plan: ASSESSMENT: Recent admission for diverticulitis and colovesical fistula S/P low anterior resection, POD #2, secondary to above Leukocytosis, likely reactive, no evidence of sepsis at this time Morbid obesity: BMI 46.0 History of MRSA of right arm, 2014 PLAN: Continue postop management per Dr. Infante Pain control. Continue Morphine PRN. Activity as tolerated. Encourage ambulation Continue clear liquid diet. Await return of bowel function Continue IV fluids per surgery. DC when PO intake increases Case discussed with Dr. Infante. He would like to keep urinary catheter in at this time as patient had an abscess very close to the bladder wall and would like to keep the bladder emptied to reduce risk of infection. Will defer to surgical services regarding timing of urinary catheter discontinuation. Activity as tolerated Home meds as appropriate Monitor labs GI prophylaxis: Pepcid 20mg PO BID DVT prophylaxis: Heparin 5000 units subcu every 8 hours Monitor vital signs and address as appropriate Discharge planning: Patient to return home when stable Further recommendations pending patient's course Nurse practitioner note has been reviewed by physician. Signing provider agrees with the documented findings, assessment, and plan of care.
[2017-07-22] MEDS: ALVIMOPAN 12 MG CAPSULE PO SCH ×2 (05:43→18:14)
[2017-07-22] MEDS: MORPHINE SULFATE 4 MG/ML SYRINGE IVP PRN ×2 (05:43→10:46)
[2017-07-22] MEDS: D5-0.45% NACL WITH KCL 20MEQ/L 1,000 ML IV SCH ×6 (06:10→20:36)
[2017-07-22] MEDS: LACTATED RINGERS 1,000 ML IV SCH (06:10)
[2017-07-22] MEDS: HEPARIN SODIUM,PORCINE 5,000 UNIT/ML 1 ML VIAL SQ SCH ×3 (08:15→23:32)
[2017-07-22] MEDS: FAMOTIDINE 20 MG TAB PO SCH ×2 (08:15→20:29)
--- NOTE | 2017-07-22 12:00 | P.PN ---
Subjective Progress Note Date: 07/22/17 37-year-old male who underwent low anterior resection by Dr. Infante secondary to diverticulitis. The patient was recently admitted in May 2017 for diverticulitis with colovesicular fistula formation. Dr. Yanes was consulted for medical management. 07/20/2017 The patient was seen and examined at the bedside. Spouse present. No operative report is available at this time but spouse states she was told that the patient had an abscess that was removed along with repair of fistula. Patient has JR drain x 2 with serosanguineous drainage present. Prevara wound vac is noted. Epidural is infusing per anesthesia. Patient states his pain is controlled at this time. Indwelling urinary catheter is present with clear yellow urine. Patient states he is tolerating clear liquids. Denies flatus. Hemoglobin is 12.4. Potassium 4.8. Vital signs are stable. 07/21/2017 Patient seen and examined at the bedside. Patient states he had a "rough night" . He reports that his epidural catheter was removed last night and he was placed on Dilaudid which he did not tolerate. He is now receiving Morphine that he states is controlling his pain well. JR drain x 2 intact. Prevara wound vac intact. Patient denies passing flatus. No bowel movement. Urinary catheter is intact with clear yellow urine. Case discussed with Dr. Infante. He would like to keep urinary catheter in at this time as patient had an abscess very close to the bladder wall and would like to keep the bladder emptied to reduce risk of infection. Vital signs are stable. Remains afebrile. 07/22/2017 Patient seen and examined at the bedside. Spouse present. Patient states he is tired this morning and was unable to sleep well last night. He reports some dizziness this morning while laying in bed and ambulating. Vital signs have been stable. Patient states he is passing flatus. No bowel movement since surgery. He states he has been tolerating clear liquid diet, but did not eat breakfast this morning as he was not hungry. Indwelling urinary catheter remains intact with clear yellow urine. JR drain x 2 present with serosanguineous drainage. Prevera wound VAC system remains intact. Objective - Vital Signs Vital signs: Vital Signs Temp 98.0 F 07/22/17 08:08 Pulse 77 07/22/17 08:08 Resp 14 07/22/17 08:08 BP 123/79 07/22/17 08:08 Pulse Ox 100 07/22/17 08:08 Intake & Output 07/21/17 07/22/17 07/22/17 18:59 06:59 18:59 Intake Total 300 Output Total 1100 2135 Balance -800 -2135 Intake: Oral 300 Output: Drainage 35 Left Abdomen 30 Right Abdomen 5 Urine 1100 2100 Uretheral (Sarmiento) 1100 Other: Voiding Method Indwelling Catheter Indwelling Catheter Indwelling Catheter - Exam GENERAL: This is a 37-year-old male in no apparent distress at the time of examination. Pleasant and cooperative. HEENT: Head is atraumatic, normocephalic. Pupils are equal, round, and reactive to light. Sclerae anicteric. Conjunctivae are clear. Mucus membranes of the mouth are moist. Neck is supple. RESPIRATORY: Clear to ausculation. No wheezes, rales, or rhonchi. No use of accessory muscles. Patient maintaining oxygen saturation greater than 92%. No chest wall tenderness is noted on palpation or with deep breathing. CARDIOVASCULAR: Regular rate and rhythm. S1 and S2 noted. No systolic or diastolic murmur auscultated. No JVD noted. No S3 or S4 noted. GASTROINTESTINAL: Soft and rounded. Nondistended. JR drain x 2 intact with serosanguineous drainage noted. Prevara wound vac intact. Bowel sounds auscultated. INTEGUMENTARY: No cyanosis. No jaundice. No rashes noted. No cellulitis noted. EXTREMITIES: 2+ peripheral pulses. No evidence of peripheral edema. No calf tenderness noted. NEUROLOGIC: Cranial nerves II-XII intact. PSYCHIATRIC: Awake, alert, and oriented X 3. Appropriate affect. Intact judgement and insight. - Labs CBC & Chem 7: 07/20/17 07:13 07/20/17 07:13 Assessment and Plan Plan: ASSESSMENT: Recent admission for diverticulitis and colovesical fistula S/P low anterior resection, POD #3, secondary to above Leukocytosis, likely reactive, no evidence of sepsis at this time Morbid obesity: BMI 46.0 History of MRSA of right arm, 2015 PLAN: Continue postop management per Dr. Infante Pain control. Continue Morphine PRN. Activity as tolerated. Encourage ambulation Advance diet per surgery Check CBC, CMP, and Magnesium Recommend decreasing IV fluids to 75cc and changing to 0.9NS Case discussed with Dr. Infante yesterday. He would like to keep urinary catheter in at this time as patient had an abscess very close to the bladder wall and would like to keep the bladder emptied to reduce risk of infection. Will defer to surgical services regarding timing of urinary catheter discontinuation. Activity as tolerated Home meds as appropriate Monitor labs GI prophylaxis: Pepcid 20mg PO BID DVT prophylaxis: Heparin 5000 units subcu every 8 hours Monitor vital signs and address as appropriate Discharge planning: Patient to return home when stable Further recommendations pending patient's course Nurse practitioner note has been reviewed by physician. Signing provider agrees with the documented findings, assessment, and plan of care.
[2017-07-22 12:30] LABS: Basophils % (A) 0 %; Eosinophils # (A) 0.2 k/uL (0-0.7); Eosinophils % (A) 2 %; HCT 39.7 % (39.0-53.0); HGB 13.2 gm/dL (13.0-17.5); Lymphocytes # (A) 1.8 k/uL (1.0-4.8); Lymphocytes % (A) 20 %; MCH 27.2 pg (25.0-35.0); MCHC 33.2 g/dL (31.0-37.0); MCV 82.1 fL (80.0-100.0); Mean Platelet Volume 6.4; Monocytes # (A) 0.4 k/uL (0-1.0); Monocytes % (A) 5 %; Neutrophils # (A) 6.6 k/uL (1.3-7.7); Neutrophils % (A) 72 %; Platelet Count 293 k/uL (150-450); RBC 4.83 m/uL (4.30-5.90); RDW 13.6 % (11.5-15.5); WBC 9.2 k/uL (3.8-10.6)
[2017-07-22] MEDS ORDERED: MORPHINE SULFATE 4 MG/ML SYRINGE IVP PRN (12:41)
[2017-07-22 12:43] LABS: ALT 76 U/L (21-72); AST 62 U/L (17-59); Albumin 3.7 g/dL (3.5-5.0); Alkaline Phosphatase 68 U/L (38-126); Anion Gap 12 mmol/L; Blood Urea Nitrogen 7 mg/dL (9-20); Carbon Dioxide 24 mmol/L (22-30); Chloride 101 mmol/L (98-107); Glucose 104 mg/dL (74-99); Magnesium 1.9 mg/dL (1.6-2.3); Potassium 4.4 mmol/L (3.5-5.1); Sodium 137 mmol/L (137-145); Total Bilirubin 0.7 mg/dL (0.2-1.3); Total Protein 6.3 g/dL (6.3-8.2)
--- NOTE | 2017-07-22 12:47 | P.PN ---
Subjective Progress Note Date: 07/22/17 37 -year-old male sitting up in bed. Patient states that he did ambulate twice a day in the hallway this morning tolerating a clear liquid diet states he did pass gas no stool. Indwelling Sarmiento catheter in place. [address] 1 right 1 left serous drainage noted. prevera wound system to surgical site in place soft surgical tenderness appropriate currently denying dizziness lightheadedness chest pain or shortness of breath Dr. pérez at the bedside discuss with patient and patient's no need for antibiotics at this time. There was a small abscess on the bladder noted during surgery. continue with the indwelling Sarmiento catheter at this time questions were answered by Dr. pérez postop 19 of July low anterior resection for diverticulitis Objective - Vital Signs Vital signs: Vital Signs Temp 98.0 F 07/22/17 08:08 Pulse 77 07/22/17 08:08 Resp 14 07/22/17 08:08 BP 123/79 07/22/17 08:08 Pulse Ox 100 07/22/17 08:08 Intake & Output 07/21/17 07/22/17 07/22/17 18:59 06:59 18:59 Intake Total 300 Output Total 1100 2135 Balance -800 -2135 Intake: Oral 300 Output: Drainage 35 Left Abdomen 30 Right Abdomen 5 Urine 1100 2100 Uretheral (Sarmiento) 1100 Other: Voiding Method Indwelling Catheter Indwelling Catheter Indwelling Catheter - Exam Physical exam Pleasant 37-year-old male sitting up in bed at bedside states has been up twice this morning ambulating. States when he first sat up this morning felt slightly dizzy lightheaded had just received pain medication Lungs adequate air movement bilaterally on room air sats are 98% no cough noted Heart S1-S2 audible and regular denying chest pain Abdomen obese soft prevera wound system to surgical site in place. 2 JR drains right and left serous drainage indwelling Sarmiento catheter in place tolerating clear liquid diet reports hunger sensation no nausea no vomiting a few hyperactive bowel tones noted surgical tenderness appropriate not distended Extremities Venodyne's on to the bilateral lower extremities no pedal edema - Labs CBC & Chem 7: 07/22/17 12:06 07/20/17 07:13 Assessment and Plan Assessment: Impression History of diverticulitis with a known colovesical fistula Postop July 19 low anterior resection for diverticulitis Morbid obesity BMI 46 Mild leukocytosis suspect reactive Plan Continue postop surgical care Pain control Do not remove the indwelling Sarmiento catheter until okayed with the surgeon DVT and GI prophylaxis Encourage use of incentive spirometer Encourage ambulation IV fluid at 75 an hour we'll titrate down when oral intake improved Advance diet to full liquid Anticipate discharge in the next 48 hours pending clinical course The above impression and plan of care have been discussed and directed by signing physician. Tyesha Allen nurse practitioner acting as scribe for signing physician.
[2017-07-22] MEDS: traMADol 50 MG TAB PO PRN ×2 (16:18→23:32)
[2017-07-22] MEDS: HYDROcodone/APAP 7.5-325MG 1 EACH TAB PO PRN (19:28)
[2017-07-23] MEDS: traMADol 50 MG TAB PO PRN ×2 (04:30→12:53)
[2017-07-23] MEDS: ALVIMOPAN 12 MG CAPSULE PO SCH ×2 (05:13→17:08)
--- NOTE | 2017-07-23 09:01 | P.PN ---
Subjective Progress Note Date: 07/23/17 Stroke seen and examined at bedside states is passing gas this morning no bowel movement states pain medication has been effective for pain control tolerating full liquid diet indwelling Sarmiento catheter in place prevera wound system in place 2 JR drains right and left to surgical site draining serous drainage postop 19 of July low anterior resection for diverticulitis Objective - Vital Signs Vital signs: Vital Signs Temp 98.7 F 07/23/17 07:12 Pulse 84 07/23/17 07:12 Resp 16 07/23/17 07:12 BP 134/75 07/23/17 07:12 Pulse Ox 97 07/23/17 07:12 Intake & Output 07/22/17 07/23/17 07/23/17 18:59 06:59 18:59 Intake Total 1350 Output Total 2510 2030 Balance -2510 -680 Intake: Intake, IV Titration 750 Amount D5-0.45% NaCl with KCl 750 20Meq/l 1,000 ml @ 75 mls /hr IV .[id number] [facility] Rx#: [id number] Oral 600 Output: Drainage 60 30 Left Abdomen 55 25 Right Abdomen 5 5 Urine 2450 2000 Uretheral (Sarmiento) 900 Other: Voiding Method Indwelling Catheter Indwelling Catheter - Exam Physical exam 37-year-old male sitting up in bed appears in no acute distress states pain medication effective for pain control Lungs adequate air movement bilaterally on room air sats are 97% Heart S1-S2 audible regular denying chest pain no murmur Abdomen obese soft surgical tenderness appropriate hypoactive bowel tones indwelling Sarmiento catheter in place states passing gas tolerating full liquid diet No stool no nausea no vomiting prevera wound system in place Extremities Venodyne's on to the bilateral lower extremity - Labs CBC & Chem 7: 07/22/17 12:06 07/22/17 12:06 Labs: Abnormal Lab Results - Last 24 Hours (Table) 07/22/17 Range/Units 12:06 BUN 7 L (9-20) mg/dL Glucose 104 H (74-99) mg/dL AST 62 H (17-59) U/L ALT 76 H (21-72) U/L Assessment and Plan Assessment: Impression History of diverticulitis with a known colovesical fistula Postop July 19 low anterior resection for diverticulitis Morbid obesity BMI 46 Mild leukocytosis suspect reactive Plan Continue postop surgical care Pain control Do not remove the indwelling Sarmiento catheter until okayed with the surgeon DVT and GI prophylaxis Encourage use of incentive spirometer Encourage ambulation Saline lock IV Advance diet to full liquid Anticipate discharge in the next 48 hours pending clinical course The above impression and plan of care have been discussed and directed by signing physician. Tyesha Allen nurse practitioner acting as scribe for signing physician.
[2017-07-23] MEDS: HYDROcodone/APAP 7.5-325MG 1 EACH TAB PO PRN ×3 (09:06→23:09)
[2017-07-23] MEDS: D5-0.45% NACL WITH KCL 20MEQ/L 1,000 ML IV SCH (10:36)
[2017-07-23] MEDS: HEPARIN SODIUM,PORCINE 5,000 UNIT/ML 1 ML VIAL SQ SCH ×3 (10:45→23:09)
[2017-07-23] MEDS: FAMOTIDINE 20 MG TAB PO SCH ×2 (10:45→19:57)
--- NOTE | 2017-07-23 16:54 | P.PN ---
Subjective Progress Note Date: 07/23/17 Principal diagnosis: History of diverticulitis with colovesical fistula Patient's awake alert , oriented and very pleasant mood is tolerating diet, is passing gas patient is status post low anterior resection of colon. Doing quite well Objective - Vital Signs Vital signs: Vital Signs Temp 98.4 F 07/23/17 14:28 Pulse 76 07/23/17 14:28 Resp 16 07/23/17 14:28 BP 116/74 07/23/17 14:28 Pulse Ox 97 07/23/17 14:28 Intake & Output 07/22/17 07/23/17 07/23/17 18:59 06:59 18:59 Intake Total 1350 237 Output Total 2510 2030 1325 Balance -3905 -680 -1088 Weight 149.685 kg Intake: Intake, IV Titration 750 Amount D5-0.45% NaCl with KCl 750 20Meq/l 1,000 ml @ 75 mls /hr IV [id number] Rx#: [id number] Oral 600 237 Output: Drainage 60 30 25 Left Abdomen 55 25 20 Right Abdomen 5 5 5 Urine 2450 2000 1300 Uretheral (Sarmiento) 900 1300 Other: Voiding Method Indwelling Catheter Indwelling Catheter Indwelling Catheter - Exam General: [Patient awake, alert and oriented times 3. Patient in no acute distress.] HEENT: [PERRL. EOMI. No pharyngeal erythema or exudate.] Neck: [No adenopathy.] Cardiac: [Heart regular in rate and rhythm. No S3. No S4. No clicks, rubs. No murmur.] Lungs: [Clear to auscultation bilaterally.] Abdomen: [No mass. No organomegaly. Bowel sounds presnt and normoactive in all 4 quadrants.] Morbidly obese, incision clean dry dressing in place drains in place, minimal drainage Extremes: [No edema no cyanosis no claudication normal pulses] : Sarmiento in urine clear Musculoskeletal: [No joint erythema, edema or tenderness.] Skin: [No rash.] Neurologic: [No lateralizing deficits. CN II - XII grossly intact.] Lymphatic: [No adenopathy.] - Labs CBC & Chem 7: 07/22/17 12:06 07/22/17 12:06 Assessment and Plan (1) Colovesical fistula Narrative/Plan: Colon resection, patient tolerating diet doing well Current Visit: Yes Status: Acute Code(s): N32.1 - VESICOINTESTINAL FISTULA SNOMED Code(s): 08053484 (2) Diverticulitis Current Visit: Yes Status: Acute Code(s): K57.92 - DVTRCLI OF INTEST, PART UNSP, W/O PERF OR ABSCESS W/O BLEED SNOMED Code(s): 663663970 Plan: Anticipate Sarmiento catheter coming out tomorrow and possibly patient being discharge home tomorrow Time with Patient: Greater than 30
[2017-07-24] MEDS: D5-0.45% NACL WITH KCL 20MEQ/L 1,000 ML IV SCH ×2 (01:12→08:37)
[2017-07-24] MEDS: ALVIMOPAN 12 MG CAPSULE PO SCH (06:07)
[2017-07-24 07:58] VITALS: BP 121/84; PULSE 83; RESP 14; TEMP 98.2
[2017-07-24] MEDS: HEPARIN SODIUM,PORCINE 5,000 UNIT/ML 1 ML VIAL SQ SCH (07:59)
[2017-07-24] MEDS: FAMOTIDINE 20 MG TAB PO SCH (07:59)
--- NOTE | 2017-07-24 09:49 | P.DS ---
Providers Date of admission: 07/19/17 06:05 Expected date of discharge: 07/24/17 Attending physician: Kody Infante Consults: 07/19/17 11:47 Consult Physician Routine Consulting Provider: Panfilo Yanes Jr Consult Reason/Comments: Medical management Do you want consulting provider notified?: Yes Primary care physician: [facility] Course: This a 37-year-old male who underwent low anterior resection for perforated diverticulitis. Patient did well postoperatively. Please see hospital chart for details. Procedures: Low anterior resection Patient Condition at Discharge: Good Plan - Discharge Summary Discharge Rx Participant: Yes New Discharge Prescriptions: New Docusate [Colace] 100 mg PO BID #20 capsule HYDROcodone/APAP 7.5-325MG [[place] 7.5] 1 each PO Q4H PRN #30 tab PRN Reason: Pain No Action Acetaminophen Tab [Tylenol] 650 mg PO Q4HR PRN tab PRN Reason: Fever And/ Or Pain Psyllium Husk 100% [Metamucil Packet] 6 gm PO DAILY #30 packet Discharge Medication List Acetaminophen Tab [Tylenol] 650 mg PO Q4HR PRN tab 06/21/17 [Rx] Psyllium Husk 100% [Metamucil Packet] 6 gm PO DAILY #30 packet 06/21/17 [Rx] Docusate [Colace] 100 mg PO BID #20 capsule 07/24/17 [Rx] HYDROcodone/APAP 7.5-325MG [[place] 7.5] 1 each PO Q4H PRN #30 tab 07/24/17 [Rx] Follow up Appointment(s)/Referral(s): Kody Infante MD [STAFF PHYSICIAN] - 1 Week Discharge Disposition: HOME SELF-CARE
[2017-07-24] MEDS: HYDROcodone/APAP 7.5-325MG 1 EACH TAB PO PRN (11:20)
--- NOTE | 2017-08-05 11:08 | P.OP ---
Date of Procedure: 07/19/17 Preoperative Diagnosis: History of perforated diverticulitis Postoperative Diagnosis: History of perforated diverticulitis Procedure(s) Performed: Low anterior section Anesthesia: ANGUSA Surgeon: Kody Infante Estimated Blood Loss (ml): 50 Pathology: other (Sigmoid colon) Condition: stable Disposition: PACU Description of Procedure: DESCRIPTION OF PROCEDURE: The patient was placed on the operating table in the supine position. Patient received a general anesthesia. Patient was then placed in the dorsal lithotomy position. The patients abdomen was prepped and draped in the usual sterile fashion. Through a low midline incision, the abdomen was entered. The [place] retractor was placed in the wound. The stomach appeared normal. The small bowel appeared normal. The liver appeared normal. The right colon and transverse colon appeared normal. On the left colon, there was an extensive diverticulosis noted. The sigmoid colon was then mobilized by dividing the white line of [place] with electrocautery. At this point, the proximal sigmoid colon was transected with a GI stapler after a window had been made in the mesentery. The distal sigmoid colon was then dissected. Mesentery was taken down between Юлия clamps and ligated with #0 silk ties. At a point beyond the lesion, the bowel was then transected with a Proximate stapler. This was then removed. The splenic flexure was then taken down in order to provide adequate lengthening of the sigmoid colon. At this point, the auto purse-string suture device was placed across the proximal colon and fired. The colon was then opened. The 29 mm EEA anvil was then placed into the colon and then the purse- string was secured. The EEA stapler device was then placed in the patients anus and passed into the rectum. The nail for the EEA was then brought out through the distal rectum and then attached to the anvil. The EEA stapler device was then fired. The anastomosis was inspected. There were 2 good donuts of tissue removed from the EEA stapler. The anastomosis was then tested under water and there was no air leak seen. At this point the abdomen was then irrigated. There was no bleeding seen. The fascia was then closed with double stranded #1 PDS. The skin was closed with jaylin. The patient tolerated the procedure well.
== END 2017-07-24 13:29 | disposition home or self-care (01) | DRG 330 ==
LOC: 2ORMAIN 06:05 → 3SUR 10:51
PROVIDERS: ADMIT Surgery; ATTEND Surgery
PROC: 0DTN0ZZ Resection of Sigmoid Colon, Open Approach (ICD-10-PCS; principal; 2017-07-19 08:00)
DX: K57.80 Diverticulitis of intestine, part unspecified, with perforation and abscess without bleeding (principal); N32.1 Vesicointestinal fistula; Z68.42 Body mass index [BMI] 45.0-49.9, adult; D72.829 Elevated white blood cell count, unspecified; E66.01 Morbid (severe) obesity due to excess calories; Z86.14 Personal history of Methicillin resistant Staphylococcus aureus infection; Z88.5 Allergy status to narcotic agent; Z79.899 Other long term (current) drug therapy
CPT/HCPCS: 80053; 83735; 84132; 85025; 86850; 86900; 86901; 88307

== ENCOUNTER → 2017-09-07 | Outpatient (CLI) | payer OTHER ==
--- NOTE | 2017-09-07 13:15 | CT ---
EXAMINATION TYPE: CT abdomen pelvis w con DATE OF EXAM: 09/07/2017 COMPARISON: 06/15/2018 HISTORY: Pelvic pain. Post OP Bowel resection on 07/18/17 CT DLP: 3521.9 mGycm CONTRAST: CT scan of the abdomen and pelvis is performed with Oral Contrast and with IV Contrast, patient injec dmitriy with 100 mL of Isovue 300. FINDINGS: LUNG BASES-: No visible nodule. No infiltrate. LIVER/GB: No calcified gallstones. No space occupying hepatic lesion. Biliary tree is of normal ca liber. PANCREAS: No inflammation. No distinct mass. SPLEEN: No splenic enlargement. No lesion seen. ADRENALS: No nodule. No thickening. KIDNEYS/BLADDER: No hydronephrosis. No nephrolithiasis. No distinct renal mass. Urinary bladder g rossly unremarkable. BOWEL: Normal appendix. Normal bowel caliber. No inflammation. GENITAL ORGANS: No gross abnormality. LYMPH NODES: No greater than 1cm abdominal or pelvic lymph nodes are appreciated. AORTA: No significant abnormality. OSSEOUS STRUCTURES: No significant abnormality is seen. OTHER: No significant additional abnormality is seen. IMPRESSION: 1. No acute process identified at this time.
== END | disposition home or self-care (01) ==
LOC: RADCTMAIN 11:27
PROVIDERS: ATTEND Family Medicine
DX: R10.31 Right lower quadrant pain (principal); Z88.5 Allergy status to narcotic agent
CPT/HCPCS: 74177; Q9967

== ENCOUNTER 2018-11-01 08:50 | Emergency (ER) | payer OTHER ==
[2018-11-01 08:56] VITALS: PULSE 80
[2018-11-01] MEDS ORDERED: SODIUM CHLORIDE 0.9% 1,000 ML IV ONE (09:22)
--- NOTE | 2018-11-01 09:24 | ED ---
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 Patient states that on Wednesday when he went from seated to standing position he developed left lower back pain. Patient states it radiated to his left side of the abdomen. Patient denies any heavy lifting or specific instance that may have caused it. Patient states it felt somewhat similar to when he had diverticulitis in the past presents emergency department when symptoms persisted today. Patient denies fever or flulike symptoms. Patient denies dysuria or urgency frequency or hematuria. Patient denies any mi dline back pain, weakness or loss sensation lower extremities. Remaining review systems negative. Upon arrival patient appears well besides acute distress. States he does not want any pain medications. - Related Data Previous Rx's Medication Instructions Recorded Acetaminophen Tab [Tylenol] 650 mg PO Q4HR PRN tab 06/21/17 Psyllium Husk 100% [Metamucil 6 gm PO DAILY #30 packet 06/21/17 Packet] Docusate [Colace] 100 mg PO BID #20 capsule 07/24/17 HYDROcodone/APAP 7.5-325MG [[place] 1 each PO Q4H PRN #30 tab 07/24/17 7.5] Cyclobenzaprine [Flexeril] 10 mg PO TID 7 Days #21 tab 11/01/18 Allergies Allergy/AdvReac Type Severity Reaction Status Date / Time codeine Allergy Unknown Verified 11/01/18 08:56 Childhood Review of Systems ROS Statement: Those systems with pertinent positive or pertinent negative responses have been documented in the HPI. ROS Other: All systems not noted in ROS Statement are negative. 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 Date of last positivie culture/infection: 2014 MDRO Source:: Right arm Past Surgical History: Back Surgery, Orthopedic Surgery Past Anesthesia/Blood Transfusion Reactions: No Reported Reaction Additional Past Anesthesia/Blood Transfusion Reaction / Comment(s): no hx blood transfusion Past Psychological History: No Psychological Hx Reported Smoking Status: Never smoker Past Alcohol Use History: None Reported Past Drug Use History: None Reported - Past Family History Father Family Medical History: No Reported History General Exam - General Exam Comments Initial Comments: General: The patient is awake and alert, in no distress, and does not appear acutely ill. Eye: +3 mm pupils are equal, round and reactive to light, extra-ocular movements are intact. No nystagmus. There is normal conjunctiva bilaterally. No signs of icterus. Cardiovascular: There is a regular rate and rhythm. No murmur, rub or gallop is appreciated. Respiratory: Lungs are clear to auscultation, respirations are non-labored, breath sounds are equal. No wheezes, stridor, rales, or rhonchi. Gastrointestinal: Soft, non-distended, minimal tenderness to palpation of the left lower quadrant of the abdomen, which is without masses or organomegaly noted. There is no rebound or guarding present. Bowel sounds are unremarkable. Musculoskeletal: Normal ROM, no tenderness. Strength 5/5. Sensation intact. Radial pulses equal bilaterally 2+. Neurological: A&O x 3. CN II-XII intact grossly, There are no obvious motor or sensory deficits. Coordination appears grossly intact. Speech is normal. Skin: Skin is warm and dry and no rashes or lesions are noted. Psychiatric: Cooperative, appropriate mood & affect, normal judgment. Limitations: no limitations Course Vital Signs 11/01/18 11/01/18 08:54 11:12 Temperature 97.9 F 97.6 F Pulse Rate 80 80 Respiratory 18 16 Rate Blood Pressure 151/97 143/76 O2 Sat by Pulse 99 98 Oximetry Medical Decision Making - Medical Decision Making Well-appearing 38-year-old male history of diverticular disease. Patient has very mild almost non-producible pain of the left lower Aspect of the abdomen. Patient states he has any pain medications. Patient appears well. Patient states he is unsure if this is related to a back strain or his diverticular disease. CT of the abdomen and pelvis given patient history was obtained revealing no evidence of acute diverticulitis. No pneumoperitoneum. Patient's abdominal exam did not appear acute. Patient has no midline tenderness to palpation of the thoracic or lumbar spine. Patient has some mild paravertebral tenderness. Urinalysis unremarkable. No hematuria. No CVA tenderness. Patient is afebrile with no leukocytosis. I discussed the case as well as laboratory findings CT with my attending provider Dr. Reed reviewed patient's case. He is agreeable this time with outpatient discharge and follow-up with primary care provider. Patient is agreeable to this care plan was provided a prescription for Flexeril as a differential diagnosis includes low back strain. Return parameters were discussed at length. I discussed that this may be early disease process. Patient verbalized understanding and was discharged appearing well - Lab Data Result diagrams: 11/01/18 09:31 11/01/18 09:31 Lab Results 11/01/18 11/01/18 11/01/18 Range/Units 09:31 09:31 09:33 WBC 8.7 (3.8-10.6) k/uL RBC 5.46 (4.30-5.90) m/uL Hgb 15.1 (13.0-17.5) gm/dL Hct 45.1 (39.0-53.0) % MCV 82.5 (80.0-100.0) fL MCH 27.6 (25.0-35.0) pg MCHC 33.5 (31.0-37.0) g/dL RDW 14.8 (11.5-15.5) % Plt Count 268 (150-450) k/uL Neutrophils % 62 % Lymphocytes % 29 % Monocytes % 4 % Eosinophils % 3 % Basophils % 0 % Neutrophils # 5.3 (1.3-7.7) k/uL Lymphocytes # 2.5 (1.0-4.8) k/uL Monocytes # 0.4 (0-1.0) k/uL Eosinophils # 0.3 (0-0.7) k/uL Basophils # 0.0 (0-0.2) k/uL Sodium 139 (137-145) mmol/L Potassium 4.6 (3.5-5.1) mmol/L Chloride 106 (98-107) mmol/L Carbon Dioxide 25 (22-30) mmol/L Anion Gap 8 mmol/L BUN 13 (9-20) mg/dL Creatinine 0.80 (0.66-1.25) mg/dL Est GFR (CKD-EPI)AfAm >90 (>60 ml/min/1.73 sqM) Est GFR (CKD-EPI)NonAf >90 (>60 ml/min/1.73 sqM) Glucose 113 H (74-99) mg/dL Calcium 9.2 (8.4-10.2) mg/dL Total Bilirubin 0.4 (0.2-1.3) mg/dL AST 26 (17-59) U/L ALT 35 (21-72) U/L Alkaline Phosphatase 73 (38-126) U/L Total Protein 7.1 (6.3-8.2) g/dL Albumin 4.2 (3.5-5.0) g/dL Lipase 69 (23-300) U/L Urine Color Light Yellow Urine Appearance Clear (Clear) Urine pH 6.5 (5.0-8.0) Ur Specific [place] 1.010 (1.001-1.035) Urine Protein Negative (Negative) Urine Glucose (UA) Negative (Negative) Urine Ketones Negative (Negative) Urine Blood Negative (Negative) Urine Nitrite Negative (Negative) Urine Bilirubin Negative (Negative) Urine Urobilinogen <2.0 (<2.0) mg/dL Ur Leukocyte Esterase Negative (Negative) Disposition Clinical Impression: Abdominal pain, Low back pain Disposition: HOME SELF-CARE Instructions (If sedation given, give patient instructions): Abdominal Pain (ED) Additional Instructions: Please use medication as discussed. Please follow-up with family doctor in the next 2 days, GI for enlargement of liver (see attached specialist, make your own appointment by calling) Please return to emergency room if the symptoms increase or worsen or for any other concerns. Prescriptions: Cyclobenzaprine [Flexeril] 10 mg PO TID 7 Days #21 tab Is patient prescribed a controlled substance at d/c from ED?: No Referrals: Panfilo Yanes Jr, DO [Primary Care Provider] - 1-2 days Chacha Patel MD [STAFF PHYSICIAN] - 1-2 days Time of Disposition: 10:34
[2018-11-01 09:45] LABS: Basophils % (A) 0 %; Eosinophils # (A) 0.3 k/uL (0-0.7); Eosinophils % (A) 3 %; HCT 45.1 % (39.0-53.0); HGB 15.1 gm/dL (13.0-17.5); Lymphocytes # (A) 2.5 k/uL (1.0-4.8); Lymphocytes % (A) 29 %; MCH 27.6 pg (25.0-35.0); MCHC 33.5 g/dL (31.0-37.0); MCV 82.5 fL (80.0-100.0); Mean Platelet Volume 6.9; Monocytes # (A) 0.4 k/uL (0-1.0); Monocytes % (A) 4 %; Neutrophils # (A) 5.3 k/uL (1.3-7.7); Neutrophils % (A) 62 %; Platelet Count 268 k/uL (150-450); RBC 5.46 m/uL (4.30-5.90); RDW 14.8 % (11.5-15.5); WBC 8.7 k/uL (3.8-10.6)
[2018-11-01 09:50] LABS: ALT 35 U/L (21-72); AST 26 U/L (17-59); African American GFR (CKD) >90 (>60 ml/min/1.73 sqM); Albumin 4.2 g/dL (3.5-5.0); Alkaline Phosphatase 73 U/L (38-126); Anion Gap 8 mmol/L; Blood Urea Nitrogen 13 mg/dL (9-20); Calcium 9.2 mg/dL (8.4-10.2); Carbon Dioxide 25 mmol/L (22-30); Chloride 106 mmol/L (98-107); Glucose 113 mg/dL (74-99); Potassium 4.6 mmol/L (3.5-5.1); Sodium 139 mmol/L (137-145); Total Bilirubin 0.4 mg/dL (0.2-1.3); Total Protein 7.1 g/dL (6.3-8.2)
--- NOTE | 2018-11-01 10:10 | CT ---
EXAMINATION TYPE: CT abdomen pelvis w con DATE OF EXAM: 11/01/2018 COMPARISON: 09/07/2017 HISTORY: 38-year-old male Left flank pain, nausea, vomiting and history of kidney stones and divertic ulitis. TECHNIQUE: Contiguous axial scanning of the abdomen and pelvis following administration of 100 ml Iso deana 300 IV contrast. Delayed images through the kidneys and coronal/sagittal reconstructions perform ed. CT DLP: 3176 mGycm Automated exposure control for dose reduction was used. FINDINGS: Heart normal size without pericardial effusion. Lung bases clear without pleural effusion. Liver enlarged at 21.5 cm with low-attenuation suggesting fatty infiltration. Portal venous system is patent. No biliary ductal dilatation. Gallbladder, adrenal glands, kidneys, spleen, and pancreas appear within normal limits. Symmetric uptake and excretion of contrast from both kidneys without nephrolithiasis or hydronephrosi s. No dilated small bowel, free fluid, or free air. A few scattered nonenlarged and some borderline sized mesenteric lymph nodes particularly in the righ t lower quadrant measure up to 7 mm, unchanged from 09/07/2017. Prominent but not enlarged 1.1 cm port acaval lymph node also unchanged. Some scarring along the infraumbilical anterior abdominal wall midline from prior laparotomy. Appendix not discretely identified. Mild overall stool burden. Mild left-sided colonic diverticulosis, greatest along the proximal sigmoi d. Staple line from prior bowel resection and reanastomosis distal sigmoid with an end to side anasto mosis suggested. No pericolonic inflammatory change. Bladder is urine distended. Prostate gland measures 4.3 cm wide. No abnormal fluid collection in the pelvis or pelvic lymphadenopathy. Bones: No osseous destructive process. IMPRESSION: 1. PRIOR SIGMOID RESECTION WITH REANASTOMOSIS. MILD LEFT-SIDED COLONIC DIVERTICULOSIS WITHOUT EVIDENC E FOR ACUTE DIVERTICULITIS. 2. HEPATOMEGALY (21.5 CM) WITH AT LEAST MODERATE HEPATIC STEATOSIS. CORRELATE WITH LFT's, LIPID PROFI LE, AND PATIENT RISK FACTORS.
[2018-11-01 10:12] LABS: Appearance,Urine Clear (Clear); Bilirubin,Urine Negative (Negative); Blood,Urine Negative (Negative); Color,Urine Light Yellow; Glucose,Urine (UA) Negative (Negative); Ketones,Urine Negative (Negative); Leukocyte Esterase,Urine Negative (Negative); Nitrite,Urine Negative (Negative); PH, Urine 6.5 (5.0-8.0); Protein,Urine Negative (Negative); Urobilinogen,Urine <2.0 mg/dL (<2.0)
[2018-11-01 11:13] VITALS: BP 143/76; RESP 16; TEMP 97.6
== END 2018-11-01 11:11 | disposition home or self-care (01) ==
LOC: EC 08:50
DX: R10.32 Left lower quadrant pain (principal); M54.5 Low back pain; R10.814 Left lower quadrant abdominal tenderness; Z88.5 Allergy status to narcotic agent
CPT/HCPCS: 36415; 80053; 83690; 85025; 81003; 74177; 99284; 96360; Q9967

== ENCOUNTER → 2018-11-07 | Outpatient (CLI) | payer OTHER ==
--- NOTE | 2018-11-07 12:35 | CT ---
EXAMINATION TYPE: CT abdomen pelvis wo con DATE OF EXAM: 11/07/2018 COMPARISON: 11/01/2018 HISTORY: Bilateral flank pain. History of stones. CT DLP: 2966.8 mGycm Examination of the solid and hollow viscera is limited given the lack of contrast. FINDINGS: LUNG BASES: No evidence for nodule. No evidence for infiltrate. LIVER/GB: The gallbladder is unremarkable. No space-occupying hepatic lesion. PANCREAS: No pancreatic mass identified. No inflammatory process seen. SPLEEN: No evidence for splenomegaly. No intrasplenic lesions seen. ADRENALS: No adrenal nodules identified. No evidence for thickening. KIDNEYS: No evidence for renal mass. No nephrolithiasis. No hydronephrosis. BOWEL: Appendix has a normal appearance. No evidence of bowel obstruction. No inflammatory process. P ostsurgical change of the sigmoid colon. Lymph nodes: No evidence for adenopathy greater than 1 cm. Abdominal aorta: Atheromatous changes seen. No evidence for aneurysm. Genital organs: No significant abnormality. Other: Degenerative changes lumbar spine. IMPRESSION: 1. No significant abnormality to account for the patient's symptoms.
== END | disposition home or self-care (01) ==
LOC: RADCTMAIN 12:10
PROVIDERS: ATTEND Family Medicine
DX: R10.9 Unspecified abdominal pain (principal); Z88.5 Allergy status to narcotic agent
CPT/HCPCS: 74176

== ENCOUNTER → 2020-12-30 | Outpatient (CLI) | payer BC, OTHER ==
[2020-12-30 15:46] VITALS: BP 155/103; PULSE 85; TEMP 98.6; BMI 53.1
[2020-12-30 16:26] LABS: HCT 44.8 % (39.0-53.0); HGB 14.9 gm/dL (13.0-17.5); MCH 28.4 pg (25.0-35.0); MCHC 33.2 g/dL (31.0-37.0); MCV 85.8 fL (80.0-100.0); Mean Platelet Volume 7.3; Platelet Count 255 k/uL (150-450); RBC 5.22 m/uL (4.30-5.90); RDW 13.6 % (11.5-15.5); WBC 11.6 k/uL (3.8-10.6)
[2020-12-31 01:07] LABS: African American GFR (CKD) 130.8 (60.0-200.0); Albumin 4.4 g/dL (3.8-4.9); Albumin/Globulin Ratio 1.77 (1.60-3.17); BUN/Creat Ratio 17.99 Ratio (12.00-20.00); Blood Urea Nitrogen 14.3 mg/dL (9.0-27.0); Calcium 8.9 mg/dL (8.7-10.3); Carbon Dioxide 22.3 mmol/L (21.6-31.8); Folate, Serum 19.3 ng/mL (4.40-31.00); Globulin 2.5 g/dL (1.6-3.3); Non-African American GFR(CKD) 112.8 (60.0-200.0); Total Bilirubin 0.4 mg/dL (0.30-1.20); Total Protein 6.9 g/dL (6.2-8.2)
--- NOTE | 2021-01-09 19:34 | P.HPBAR ---
Bariatric H&P - History & Physicial H&P Date: 12/30/20 History & Physicial: Visit/CC: initial clinic visit Patient initial contact: Initial weight: Initial weight in pounds: Height: 5 ft 9.5 in Initial BMI: Last weight: Current weight: 165.561 kg Current weight in pounds: 365.00 Current BMI: 53.1 Debary body weight (based on NIH guidelines): 73.936 kg Excess body weight loss: The patient is a 40 year-old M who presents for Bariatric Assessment. Patient presents today for presurgical consultation. He is interested in sleeve gastrectomy. He is mildly obese. His BMI is 53. 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 Year Discovered:: 2014 MDRO Source:: Right arm Past Surgical History: Back Surgery, Orthopedic Surgery Past Anesthesia/Blood Transfusion Reactions: No Reported Reaction Additional Past Anesthesia/Blood Transfusion Reaction / Comm: no hx blood transfusion Past Psychological History: No Psychological Hx Reported Smoking Status: Never smoker Past Alcohol Use History: None Reported Past Drug Use History: None Reported - Past Family History Father Family Medical History: No Reported History Surgical - Exam Vital Signs Temp Pulse BP 98.6 F 85 155/103 12/30/20 15:42 12/30/20 15:42 12/30/20 15:42 - General well developed, well nourished, no distress - Eyes PERRL - ENT normal pinna - Neck no masses - Respiratory normal expansion - Cardiovascular Rhythm: regular - Abdomen Abdomen: soft, non tender Results - Labs 12/30/20 16:06 12/30/20 16:06 Bariatric Assessment & Plan Plan: Morbid obesity. Patient was scheduled for EGD. Bariatric Checklist Checklist: Plan: Checklist: EGD: 1. Hiatal hernia: 2. H. Pylori: HgbA1c: Vitamin D: Smoking: Never smoker Primary care physician referral: scarlett lambert Psychiatry clearance: Cardiology clearance: Sleep study: Diet journal: VTE risk score: VTE risk level: Rehab needs at discharge:
== END ==
LOC: BARWHC3 14:32
PROVIDERS: ATTEND Surgery
DX: E66.01 Morbid (severe) obesity due to excess calories (principal); Z68.43 Body mass index [BMI] 50.0-59.9, adult; Z88.5 Allergy status to narcotic agent
CPT/HCPCS: 80053; 82306; 82607; 82746; 83036; 84425; 85027; 93005; 99211

== ENCOUNTER → 2020-12-30 | Outpatient (CLI) | payer BC, OTHER | END | disposition home or self-care (01) | LOC: LABWHC1 14:57 | PROVIDERS: ATTEND Surgery | DX: Z53.9 Procedure and treatment not carried out, unspecified reason (principal) ==

== ENCOUNTER 2021-02-10 10:05 | Day surgery (SDC) | payer BC, OTHER ==
[2021-02-06 14:28] VITALS: BMI 45.4
[~2021-02-10 10:05] MED LIST changes: -HEPARIN SODIUM,PORCINE 5,000 UNIT/ML 1 ML VIAL SQ ONE; +LACTATED RINGERS 1,000 ML IV SCH; +LIDOCAINE 1% (10MG/ML) FOR IV START INTRADERMA PRN; -metroNIDAZOLE-NS PMX 500 MG in SALINE 1 100ML.BAG IVPB ONE
[2021-02-10 10:27] VITALS: TEMP 97.8
--- NOTE | 2021-02-10 11:11 | P.GSHP ---
History of Present Illness H&P Date: 02/10/21 Chief Complaint: GERD, morbid obesity This is a 40-year-old male undergoing workup for sleeve gastrectomy. Patient's morbid obesity. His BMI is 50. He's had some mild GERD symptoms. Past Medical History Past Medical History: Hypertension Additional Past Medical History / Comment(s): diverticulosis,diverticulitis, History of Any Multi-Drug Resistant Organisms: MRSA Date of last positivie culture/infection: 2014 MDRO Source:: Right arm Past Surgical History: Back Surgery, Bowel Resection, Orthopedic Surgery Additional Past Surgical History / Comment(s): fistula repair. back surgery L4- L5. rt knee arthroscopy Past Anesthesia/Blood Transfusion Reactions: No Reported Reaction Additional Past Anesthesia/Blood Transfusion Reaction / Comment(s): no hx blood transfusion Smoking Status: Never smoker - Past Family History Father Family Medical History: No Reported History Medications and Allergies Home Medications Medication Instructions Recorded Confirmed Type Cholecalciferol (Vitamin D3) 125 mcg PO DAILY 02/06/21 02/10/21 History [Vitamin D3 (125 MCG = 5,000 IU)] Multivitamins, Thera [Multivitamin 1 tab PO DAILY 02/06/21 02/06/21 History (formulary)] amLODIPine [Norvasc] 2.5 mg PO DAILY 02/10/21 02/10/21 History lisinopriL [Zestril] 5 mg PO DAILY 02/10/21 02/10/21 History Allergies Allergy/AdvReac Type Severity Reaction Status Date / Time codeine Allergy Unknown Verified 02/10/21 10:18 Childhood Surgical - Exam Vital Signs Temp Pulse Resp BP Pulse Ox 97.8 F 83 18 143/78 97 02/10/21 10:24 02/10/21 10:24 02/10/21 10:24 02/10/21 10:24 02/10/21 10:24 - General well developed, well nourished, no distress - Eyes PERRL - ENT normal pinna - Neck no masses - Respiratory normal expansion - Cardiovascular Rhythm: regular - Abdomen Abdomen: soft, non tender Assessment and Plan Assessment: GERD, morbid obesity. We'll perform EGD
[2021-02-10] MEDS ORDERED: LIDOCAINE 1% INJ 10MG/ML (20 ML MDV) ONE (11:13)
[2021-02-10] MEDS ORDERED: PROPOFOL 10 MG/ML 20 ML VIAL IV ONE (11:13)
[2021-02-10] MEDS ORDERED: KETAMINE 10 MG/ML 20 ML VIAL ONE (11:13)
--- NOTE | 2021-02-10 11:15 | P.OP ---
Date of Procedure: 02/10/21 Preoperative Diagnosis: GERD Morbid obesity Postoperative Diagnosis: Antral gastritis Procedure(s) Performed: EGD Anesthesia: MAC Surgeon: Kody Infante Pathology: other (Antrum) Condition: stable Disposition: PACU Description of Procedure: The patient's placed on the endoscopy table in the lateral position. He received IV sedation. The gastroscope placed oropharynx passed in the esophagus and stomach. Scope was then placed through the pylorus. The first and second portion of the duodenum appeared normal. Scope was then brought back and the antrum this. Mildly inflamed. A biopsies performed. Scope was unretroflexed and remainder of the stomach appeared normal. The GE junction was at 40 cm distal esophagusAppeared normal. The proximal esophagus appeared normal. Scope was withdrawn from patient.
[2021-02-10 11:34] VITALS: BP 117/85; PULSE 85; RESP 18
== END 2021-02-10 12:05 | disposition home or self-care (01) ==
LOC: ORWHC2ENDO 10:05
PROVIDERS: ATTEND Surgery
DX: K29.50 Unspecified chronic gastritis without bleeding (principal); Z87.19 Personal history of other diseases of the digestive system; Z86.14 Personal history of Methicillin resistant Staphylococcus aureus infection; Z90.49 Acquired absence of other specified parts of digestive tract; Z98.890 Other specified postprocedural states; E66.01 Morbid (severe) obesity due to excess calories; Z68.42 Body mass index [BMI] 45.0-49.9, adult; Z79.899 Other long term (current) drug therapy; Z88.5 Allergy status to narcotic agent; I10 Essential (primary) hypertension
CPT/HCPCS: 88305; 43239; J2001; J2704

== ENCOUNTER → 2021-05-05 | Outpatient (CLI) | payer BC, OTHER ==
[2021-05-05 18:26] LABS: Basophils # (A) 0.04 X 10*3/uL (0.00-0.10); Basophils % (A) 0.5 %; Eosinophils # (A) 0.19 X 10*3/uL (0.04-0.35); Eosinophils % (A) 2.6 %; HGB 14.2 g/dL (13.0-17.0); Immature Grans, Automated 0.4 %; Lymphocytes # (A) 2.58 X 10*3/uL (0.90-5.00); MCH 27.4 pg (27.0-32.0); MCHC 31.6 g/dL (32.0-37.0); MCV 86.9 fL (80.0-97.0); Mean Platelet Volume 10.1 fL (9.5-12.2); Monocytes # (A) 0.46 X 10*3/uL (0.20-1.00); Monocytes % (A) 6.2 %; NRBC Per 100 WBC 0 /100 WBCS (0.0-0.0); Neutrophils # (A) 4.07 X 10*3/uL (1.80-7.70); Neutrophils % (A) 55.3 %; Platelet Count 275 X 10*3/uL (140-440); RBC 5.18 X 10*6/uL (4.40-5.60); RDW 13.3 % (11.5-14.5); WBC 7.37 X 10*3/uL (4.50-10.00)
[2021-05-05 19:23] LABS: African American GFR (CKD) 109.3 (60.0-200.0); Albumin 4.8 g/dL (3.8-4.9); Albumin/Globulin Ratio 1.95 (1.60-3.17); Anion Gap 13.2 mmol/L (10.00-18.00); BUN/Creat Ratio 14.57 Ratio (12.00-20.00); Blood Urea Nitrogen 14.5 mg/dL (9.0-27.0); Calcium 9.4 mg/dL (8.7-10.3); Carbon Dioxide 23.7 mmol/L (20.0-27.5); Globulin 2.5 g/dL (1.6-3.3); Non-African American GFR(CKD) 94.3 (60.0-200.0); Potassium 4.6 mmol/L (3.5-5.5); Total Bilirubin 0.4 mg/dL (0.30-1.20); Total Protein 7.2 g/dL (6.2-8.2)
== END | disposition home or self-care (01) ==
LOC: LABPAT 14:04
PROVIDERS: ATTEND Surgery
DX: Z01.812 Encounter for preprocedural laboratory examination (principal)
CPT/HCPCS: 36415; 80053; 85025

== ENCOUNTER → 2021-06-10 | Outpatient (CLI) | payer BC, OTHER ==
[2021-06-10 23:38] LABS: Basophils # (A) 0.04 X 10*3/uL (0.00-0.10); Basophils % (A) 0.4 %; Eosinophils # (A) 0.21 X 10*3/uL (0.04-0.35); Eosinophils % (A) 2.3 %; HCT 46.7 % (39.6-50.0); HGB 14.8 g/dL (13.0-17.0); Immature Grans, Automated 0.4 %; Lymphocytes # (A) 2.78 X 10*3/uL (0.90-5.00); Lymphocytes % (A) 29.9 %; MCH 27.7 pg (27.0-32.0); MCHC 31.7 g/dL (32.0-37.0); MCV 87.3 fL (80.0-97.0); Mean Platelet Volume 10.1 fL (9.5-12.2); Monocytes # (A) 0.51 X 10*3/uL (0.20-1.00); Monocytes % (A) 5.5 %; NRBC Per 100 WBC 0 /100 WBCS (0.0-0.0); Neutrophils # (A) 5.71 X 10*3/uL (1.80-7.70); Neutrophils % (A) 61.5 %; Platelet Count 288 X 10*3/uL (140-440); RBC 5.35 X 10*6/uL (4.40-5.60); RDW 13.1 % (11.5-14.5); WBC 9.29 X 10*3/uL (4.50-10.00)
[2021-06-11 00:23] LABS: African American GFR (CKD) 108.6 (60.0-200.0); Albumin 4.5 g/dL (3.8-4.9); Albumin/Globulin Ratio 1.45 (1.60-3.17); Anion Gap 13.9 mmol/L (10.00-18.00); BUN/Creat Ratio 16.1 Ratio (12.00-20.00); Blood Urea Nitrogen 16.1 mg/dL (9.0-27.0); Calcium 9.4 mg/dL (8.7-10.3); Carbon Dioxide 24.1 mmol/L (20.0-27.5); Globulin 3.1 g/dL (1.6-3.3); Non-African American GFR(CKD) 93.7 (60.0-200.0); Potassium 4.2 mmol/L (3.5-5.5); Total Bilirubin 0.7 mg/dL (0.30-1.20); Total Protein 7.6 g/dL (6.2-8.2)
== END | disposition home or self-care (01) ==
LOC: LABPAT 14:45
PROVIDERS: ATTEND Surgery
DX: Z01.812 Encounter for preprocedural laboratory examination (principal)
CPT/HCPCS: 80053; 85025

== ENCOUNTER 2021-06-23 06:22 | Inpatient (IN) | payer BC, OTHER ==
[2021-06-19 12:01] VITALS: BMI 46.7
[~2021-06-23 06:22] MED LIST changes: +ENOXAPARIN 40 MG/0.4 ML SYRINGE SQ PRN; -LACTATED RINGERS 1,000 ML IV SCH; -LIDOCAINE 1% (10MG/ML) FOR IV START INTRADERMA PRN; +ceFAZolin 3 GM in SODIUM CHLORIDE 0.9% 100 ML IVPB PRN
[2021-06-23] MEDS ORDERED: ONDANSETRON 4 MG/2 ML VIAL ONE (07:28)
[2021-06-23] MEDS ORDERED: ACETAMINOPHEN TAB 500 MG TAB ONE (07:28)
[2021-06-23] MEDS ORDERED: HYDROmorphone 0.5 MG/0.5 ML SYRINGE IVP ONE ×2 (09:27→09:40)
[2021-06-23] MEDS ORDERED: SIMETHICONE 40 MG/0.6 ML DROPS 2,000 MG/30 ML BOTTLE PO ONE ×2 (09:35→13:31)
[2021-06-23] MEDS ORDERED: diphenhydrAMINE 50 MG/ML 1 ML VIAL IVP ONE (09:50)
[2021-06-23] MEDS ORDERED: LACTATED RINGERS 1,000 ML IV ONE ×2 (10:00)
[2021-06-23] MEDS: HYDROmorphone 0.5 MG/0.5 ML SYRINGE IVP ONE ×2 (11:40→13:17)
--- NOTE | 2021-06-23 14:56 | P.GSHP ---
History of Present Illness H&P Date: 06/23/21 Chief Complaint: Morbid obesity, BMI 46 41-year-old male presents today for laparoscopic sleeve gastric. Patient will be started BMI is 47. Patient's had lifetime problems obesity. Patient presents a risk of gastric sleeve surgery and, patient with gastric staple line such as bleeding, scarring of perforation. Past Medical History Past Medical History: Hypertension Additional Past Medical History / Comment(s): diverticulosis,diverticulitis, History of Any Multi-Drug Resistant Organisms: MRSA Date of last positivie culture/infection: 2014 MDRO Source:: Right arm Past Surgical History: Back Surgery, Bowel Resection, Orthopedic Surgery Additional Past Surgical History / Comment(s): fistula repair. back surgery L4- L5. rt knee arthroscopy. EGD Past Anesthesia/Blood Transfusion Reactions: No Reported Reaction Additional Past Anesthesia/Blood Transfusion Reaction / Comment(s): no hx blood transfusion Smoking Status: Never smoker - Past Family History Father Family Medical History: No Reported History Medications and Allergies Home Medications Medication Instructions Recorded Confirmed Type Cholecalciferol (Vitamin D3) 125 mcg PO DAILY 02/06/21 06/19/21 History [Vitamin D3 (125 MCG = 5,000 IU)] Multivitamins, Thera [Multivitamin 1 tab PO DAILY 02/06/21 06/19/21 History (formulary)] amLODIPine [Norvasc] 2.5 mg PO HS 02/10/21 06/19/21 History methocarbamoL [Robaxin] 500 mg PO Q8H PRN 05/15/21 06/19/21 History Allergies Allergy/AdvReac Type Severity Reaction Status Date / Time codeine Allergy Unknown Verified 06/19/21 11:52 Childhood Surgical - Exam Vital Signs Pulse Resp BP Pulse Ox 86 18 159/86 95 06/23/21 12:00 06/23/21 12:00 06/23/21 12:00 06/23/21 12:00 - General well developed, well nourished, no distress - Eyes PERRL - ENT normal pinna, normal nares - Neck no masses - Respiratory normal expansion - Cardiovascular Rhythm: regular - Abdomen Abdomen: soft, non tender Assessment and Plan Assessment: Morbid obesity. We'll perform sleeve gastrectomy.
[2021-06-23] MEDS ORDERED: NALOXONE 0.4 MG/ML 1 ML VIAL IV PRN (14:58)
[2021-06-23] MEDS ORDERED: diphenhydrAMINE 50 MG/ML 1 ML VIAL IVP PRN (14:58)
[2021-06-23] MEDS ORDERED: ONDANSETRON 4 MG/2 ML VIAL IVP PRN (14:58)
[2021-06-23] MEDS ORDERED: HYDROmorphone 1 MG/ML 1 ML SYRINGE IVP PRN (14:58)
--- NOTE | 2021-06-23 14:58 | P.OP ---
Date of Procedure: 06/23/21 Preoperative Diagnosis: Morbid obesity, BMI 47 Postoperative Diagnosis: Morbid obesity, BMI 47 Procedure(s) Performed: Laparoscopic sleeve gastrectomy Anesthesia: SAUNDRA Surgeon: Kody Infante Estimated Blood Loss (ml): 5 Pathology: other (Stomach) Condition: stable Disposition: PACU Description of Procedure: The patient was placed on the operating room table in the supine position. She received general anesthesia and then was placed in dorsal lithotomy position. Her abdomen was prepped and draped in sterile fashion. The skin incision sites were anesthetized 1% local Xylocaine. And then the skin was incised with an 11 blade in the left lateral position. Using a blade less trocar under direct visualization the peritoneal cavity was entered. The abdomen was insufflated and then a 5 mm laparoscope was placed into the peritoneal cavity. A 5 mm trocar was placed in the right epigastric, and right lateral position. A 15 mm trocar was placed in the supra-umbilical position and another 5 mm trocar was placed in the left lateral position. The left lateral lobe of the liver was retracted. The stomach was visualized. The greater curvature of the stomach was then dissected using the Harmonic scissors. The dissection occurred approximately 5 cm from the pylorus to the level of the left becki. There was no hiatal hernia seen. At this point a 40-[place] bougie dilator was placed the oropharynx and passed into the esophagus and into the stomach by the KNOCKER OFF. The sleeve gastrectomy was performed by using the powered echelon stapler with a seam guard buttress material. Sequential firings of the stapler were performed. The gastric remnant was then brought out through the 15 mm trocar site. The dilator was withdrawn. And a orogastric tube was replaced into the stomach. The stomach was insufflated with 200 mL of methylene blue normal saline. There was no evidence of extravasation. The abdomen was irrigated there is no bleeding seen. The [place] device was used to close the 15 mm trocar with 0 Vicryl. Skin was closed with interrupted 3-0 Monocryl sutures once the trochars withdrawn. Dermabond dressing was applied. Patient was sent to recovery in stable condition.
[2021-06-23] MEDS: 0.9% NACL WITH KCL 20 MEQ/L 1,000 ML IV SCH ×2 (16:31→22:57)
[2021-06-23] MEDS: SIMETHICONE 40 MG/0.6 ML DROPS 2,000 MG/30 ML BOTTLE PO PRN ×2 (16:34→22:57)
[2021-06-23] MEDS ORDERED: HYDROmorphone 1 MG/ML 1 ML SYRINGE ONE (16:44)
[2021-06-23] MEDS ORDERED: KETOROLAC 15 MG/ML 1 ML VIAL ONE (17:56)
[2021-06-23] MEDS: KETOROLAC 15 MG/ML 1 ML VIAL IVP SCH (18:03)
--- NOTE | 2021-06-23 18:41 | P.CONS ---
History of Present Illness - Reason for Consult Consult date: 06/23/21 Requesting physician: Kody Infante - Chief Complaint Morbid obesity - History of Present Illness 41-year-old male patient Is day of surgery for laparoscopic gastric sleeve. Patient has past medical history of lifelong obesity problems, hypertension, diverticulosis with diverticulitis, history of MRSA in right arm with last positive culture being 2014. Previous surgical interventions been back surgery for L4-L5, and bowel resection. Currently patient is up walking in his room with his at his side. Patient does c/o nausea and some generalized abdominal discomfort, but other than that no complaints. He denies any chest pain pressure, shortness of breath or difficulty breathing, vomiting or diarrhea. Review of Systems Constitutional: Reports fatigue Ears, nose, mouth and throat: Reports as per HPI Cardiovascular: Reports as per HPI Respiratory: Reports as per HPI Gastrointestinal: Reports abdominal pain, Reports belching, Reports nausea Genitourinary: Reports as per HPI Musculoskeletal: Reports as per HPI Integumentary: Reports as per HPI Neurological: Reports as per HPI Psychiatric: Reports as per HPI Endocrine: Reports as per HPI, Reports fatigue Hematologic/Lymphatic: Reports as per HPI Allergic/Immunologic: Reports as per HPI Past Medical History Past Medical History: Hypertension Additional Past Medical History / Comment(s): diverticulosis,diverticulitis, History of Any Multi-Drug Resistant Organisms: MRSA Year Discovered:: 2014 MDRO Source:: Right arm Past Surgical History: Back Surgery, Bowel Resection, Orthopedic Surgery Additional Past Surgical History / Comment(s): fistula repair. back surgery L4- L5. rt knee arthroscopy. EGD Past Anesthesia/Blood Transfusion Reactions: No Reported Reaction Additional Past Anesthesia/Blood Transfusion Reaction / Comm: no hx blood transfusion Smoking Status: Never smoker - Past Family History Father Family Medical History: No Reported History Medications and Allergies Home Medications Medication Instructions Recorded Confirmed Type Cholecalciferol (Vitamin D3) 125 mcg PO DAILY 02/06/21 06/19/21 History [Vitamin D3 (125 MCG = 5,000 IU)] Multivitamins, Thera [Multivitamin 1 tab PO DAILY 02/06/21 06/19/21 History (formulary)] amLODIPine [Norvasc] 2.5 mg PO HS 02/10/21 06/19/21 History methocarbamoL [Robaxin] 500 mg PO Q8H PRN 05/15/21 06/19/21 History Allergies Allergy/AdvReac Type Severity Reaction Status Date / Time codeine Allergy Unknown Verified 06/19/21 11:52 Childhood Physical Exam Vitals: Vital Signs Temp Pulse Resp BP Pulse Ox 06/23/21 17:32 76 18 06/23/21 17:13 98.2 F 76 18 152/92 96 06/23/21 15:00 83 16 137/89 98 06/23/21 14:00 97 16 156/79 98 06/23/21 13:00 97.0 F L 76 16 164/79 94 L 06/23/21 12:00 86 18 159/86 95 Intake and Output 06/23/21 06/23/21 06/23/21 06:59 14:59 22:59 Intake Total 500 Output Total 400 Balance 100 Intake: IV 500 Output: Urine 400 Other: # Voids 2 Weight 156.489 kg 156.489 kg GENERAL: Well-appearing, well-nourished and in no acute distress. Alert and oriented 3 and is up ambulating in room HEAD: Atraumatic, normocephalic. EYES: Pupils equal round and reactive to light, extraocular movements intact, sclera anicteric, conjunctiva are normal. ENT:nares patent, oropharynx clear without exudates. Moist mucous membranes. NECK: Normal range of motion, supple without lymphadenopathy or JVD, no thyromegaly LUNGS: Breath sounds clear to auscultation bilaterally and equal. No wheezes rales or rhonchi. HEART: Regular rate and rhythm without murmurs, rubs or gallops.S1S2 Normal ABDOMEN: Soft, mildly tender, mildly distended, rare bowel sounds. No guarding, no rebound. No masses appreciated. EXTREMITIES: Normal range of motion, no pitting or edema. No clubbing or cyanosis. NEUROLOGICAL: Cranial nerves II through XII grossly intact. Normal speech, slow gait. PSYCH: Normal mood, normal affect. SKIN: Warm, Dry, normal turgor, no rashes or lesions noted. Assessment and Plan (1) Morbid obesity Current Visit: Yes Status: Acute Code(s): E66.01 - MORBID (SEVERE) OBESITY DUE TO EXCESS CALORIES SNOMED Code(s): 799323980 (2) Hypertension Current Visit: Yes Status: Acute Code(s): I10 - ESSENTIAL (PRIMARY) HYPERTENSION SNOMED Code(s): 59771458 (3) S/P gastric sleeve procedure Current Visit: Yes Status: Acute Code(s): Z90.3 - ACQUIRED ABSENCE OF STOMACH [PART OF] SNOMED Code(s): 392865454791494 (4) Abdominal pain Current Visit: Yes Status: Acute Code(s): R10.9 - UNSPECIFIED ABDOMINAL PAIN SNOMED Code(s): 41702465 Plan: Continue current medication regimen as prescribed IV antibiotics cefazolin 3 g Pain control with hydromorphone and ketorolac Pneumatic stockings and Subcu Lovenox for DVT prophylaxis Protonix for GI prophylaxis Zofran for nausea Nothing by mouth at this time We'll order Vasotec for elevated blood pressure CBC and comp for labs tomorrow morning We'll continue to follow closely and reevaluate again tomorrow. Time with Patient: Greater than 30
[2021-06-23] MEDS ORDERED: ENALAPRILAT 1.25 MG/ML 1 ML VIAL IVP PRN (18:42)
[2021-06-23] MEDS: ALBUTEROL NEBULIZED 2.5 MG/3 ML INHALATION SCH (19:36)
[2021-06-23] MEDS ORDERED: MIDAZOLAM 2 MG/2 ML VIAL IV PRN (20:00)
[2021-06-23] MEDS ORDERED: HYDROmorphone 0.5 MG/0.5 ML SYRINGE IVP PRN (20:00)
[2021-06-23] MEDS ORDERED: LACTATED RINGERS 1,000 ML IV SCH (20:00)
[2021-06-23] MEDS ORDERED: ONDANSETRON 4 MG/2 ML VIAL IVP ONE (20:00)
[2021-06-23] MEDS ORDERED: DEXAMETHASONE SOD PHOSPHATE 4 MG/ML 1 ML VIAL IV ONE (20:00)
[2021-06-23] MEDS ORDERED: LIDOCAINE 1% (10MG/ML) FOR IV START INTRADERMA PRN (20:00)
[2021-06-24] MEDS: KETOROLAC 15 MG/ML 1 ML VIAL IVP SCH ×3 (01:04→11:48)
[2021-06-24] MEDS: ENOXAPARIN 40 MG/0.4 ML SYRINGE SQ SCH ×2 (01:05→11:49)
[2021-06-24 08:00] VITALS: BP 132/88; PULSE 79; RESP 18; TEMP 97.9
[2021-06-24] MEDS ORDERED: 1: THIAMINE 100 MG, FOLIC ACID 1 MG in 0.9% NACL WITH KCL 20 MEQ/L 1,000 ML 2: 0.9% NAC IVPB SCH (08:00)
[2021-06-24] MEDS: 0.9% NACL WITH KCL 20 MEQ/L 1,000 ML IV SCH (08:46)
[2021-06-24] MEDS ORDERED: PANTOPRAZOLE 40 MG/10 ML VIAL IV SCH (09:00)
[2021-06-24 09:12] LABS: Basophils # (A) 0.01 X 10*3/uL (0.00-0.10); Basophils % (A) 0.1 %; Eosinophils # (A) 0 X 10*3/uL (0.04-0.35); Eosinophils % (A) 0 %; HCT 46.1 % (39.6-50.0); HGB 14.6 g/dL (13.0-17.0); Immature Grans, Automated 0.3 %; Lymphocytes # (A) 1.94 X 10*3/uL (0.90-5.00); Lymphocytes % (A) 14.4 %; MCH 27.1 pg (27.0-32.0); MCHC 31.7 g/dL (32.0-37.0); MCV 85.7 fL (80.0-97.0); Mean Platelet Volume 10.3 fL (9.5-12.2); Monocytes # (A) 0.89 X 10*3/uL (0.20-1.00); Monocytes % (A) 6.6 %; NRBC Per 100 WBC 0 /100 WBCS (0.0-0.0); Neutrophils # (A) 10.58 X 10*3/uL (1.80-7.70); Neutrophils % (A) 78.6 %; Platelet Count 262 X 10*3/uL (140-440); RBC 5.38 X 10*6/uL (4.40-5.60); RDW 13.3 % (11.5-14.5); WBC 13.46 X 10*3/uL (4.50-10.00)
[2021-06-24 09:30] LABS: Magnesium 2.2 mg/dL (1.5-2.4)
[2021-06-24 09:31] LABS: African American GFR (CKD) 129.5 (60.0-200.0); Anion Gap 14.5 mmol/L (10.00-18.00); Blood Urea Nitrogen 9.8 mg/dL (9.0-27.0); Calcium 8.8 mg/dL (8.7-10.3); Carbon Dioxide 18.5 mmol/L (20.0-27.5); Non-African American GFR(CKD) 111.7 (60.0-200.0); Phosphorus 2.2 mg/dL (2.4-5.1); Potassium 4.5 mmol/L (3.5-5.5)
--- NOTE | 2021-06-24 10:26 | FL ---
EXAMINATION TYPE: FL UGI DATE OF EXAM: 06/24/2021 LIMITED UGI: CLINICAL HISTORY: Morbid Obesity, gastric sleeve surgery yesterday. TECHNIQUE: Limited UGI is performed utilizing 50 oz of Isovue-370. A total of 27 seconds of fluorosc opic time was utilized during procedure and 37 images obtained. COMPARISON: None. FINDINGS: The patient swallowed contrast without difficulty or delay. Esophageal peristalsis and mo tility are within normal limits. There is good flow of contrast along the diaphragmatic hiatus into proximal stomach through proximal anastomosis and subsequent flow into gastric sleeve. There is good flow from distal sleeve and anastomosis into pylorus and duodenal sweep. Patient remains asymptomatic . There is no evidence of contrast extravasation to suggest leak. IMPRESSION: No evidence of leak or significant obstruction status post recent gastric sleeve surgery.
[2021-06-24] MEDS: ALBUTEROL NEBULIZED 2.5 MG/3 ML INHALATION SCH ×2 (10:46→12:30)
--- NOTE | 2021-06-24 13:21 | P.DS ---
Providers Date of admission: 06/23/21 06:22 Expected date of discharge: 06/24/21 Attending physician: Kody Infante Consults: 06/23/21 14:58 Consult Physician Routine Consulting Provider: Panfilo Yanes Jr Consult Reason/Comments: Medical management Do you want consulting provider notified?: Yes Primary care physician: Panfilo Yanes [facility] Course: Discharge diagnosis 1. Morbid obesity status post laparoscopic sleeve gastrectomy Hospital course This is a 41-year-old male with morbid obesity. He is status post laparoscopic sleeve gastrectomy. He tolerated surgery well. Upper GI shows no evidence of leak or obstruction. He is tolerating his bariatric clear liquid diet. He is having flatus. His pain is controlled. He is afebrile. He is up and ambulating. He is stable for discharge. Please refer to chart for any further details. Physician Sports Analyst note has been reviewed by physician. Signing provider agrees with the documented findings, assessment, and plan of care. Patient Condition at Discharge: Stable Plan - Discharge Summary Discharge Rx Participant: Yes New Discharge Prescriptions: New bisacodyL [Dulcolax] 5 mg PO DAILY PRN #10 tab PRN Reason: Constipation Omeprazole [PriLOSEC] 40 mg PO DAILY #30 cap HYDROcodone/APAP 5-325MG [[place] 5-325] 1 tab PO Q6HR PRN 2 Days #5 tab PRN Reason: Pain Simethicone 40 mg/0.6 ml Drops [Mylicon Drops] 40 mg PO PCHS PRN #30 ml PRN Reason: Gas Ondansetron Odt [Zofran Odt] 4 mg PO Q8HR PRN #9 tab PRN Reason: Nausea Continue amLODIPine [Norvasc] 2.5 mg PO HS methocarbamoL [Robaxin] 500 mg PO Q8H PRN PRN Reason: muscle spasms Discontinued Cholecalciferol (Vitamin D3) [Vitamin D3 (125 MCG = 5,000 IU)] 125 mcg PO DAILY Multivitamins, Thera [Multivitamin (formulary)] 1 tab PO DAILY Discharge Medication List amLODIPine [Norvasc] 2.5 mg PO HS 02/10/21 [History] methocarbamoL [Robaxin] 500 mg PO Q8H PRN 05/15/21 [History] HYDROcodone/APAP 5-325MG [[place] 5-325] 1 tab PO Q6HR PRN 2 Days #5 tab 06/24/21 [Rx] Omeprazole [PriLOSEC] 40 mg PO DAILY #30 cap 06/24/21 [Rx] Ondansetron Odt [Zofran Odt] 4 mg PO Q8HR PRN #9 tab 06/24/21 [Rx] Simethicone 40 mg/0.6 ml Drops [Mylicon Drops] 40 mg PO PCHS PRN #30 ml 06/24/21 [Rx] bisacodyL [Dulcolax] 5 mg PO DAILY PRN #10 tab 06/24/21 [Rx] Follow up [facility]ment(s[facility] [facility] [place] [place] [facility] [place] 1 Week Activity/Diet/Wound Care/Special Instructions: No driving while taking [place] No lifting over 10 pounds Shower daily. No soaking or tub baths for 2 weeks Very light activity until you are reevaluated at your follow up appointment with your surgeon Discharge Disposition: HOME SELF-CARE
--- NOTE | 2021-06-24 13:37 | P.PN ---
Subjective Progress Note Date: 06/24/21 06/23/2021 41-year-old male patient Is day of surgery for laparoscopic gastric sleeve. Patient has past medical history of lifelong obesity problems, hypertension, diverticulosis with diverticulitis, history of MRSA in right arm with last positive culture being 2014. Previous surgical interventions been back surgery for L4-L5, and bowel resection. Currently patient is up walking in his room with his at his side. Patient does c/o nausea and some generalized abdominal discomfort, but other than that no complaints. He denies any chest pain pressure, shortness of breath or difficulty breathing, vomiting or diarrhea. 06/24/2021 Status post laparoscopic sleeve gastrectomy, tolerated procedure well. Passing flatus. Pain controlled. Upper EGD reported no evidence of leak or obstruction. Tolerating bariatric diet with no nausea vomiting or diarrhea. VSS. Objective - Vital Signs Vital signs: Vital Signs Temp 97.9 F 06/24/21 07:59 Pulse 79 06/24/21 07:59 Resp 18 06/24/21 07:59 BP 132/88 06/24/21 07:59 Pulse Ox 97 06/24/21 07:59 Intake & Output 06/23/21 06/24/21 06/24/21 18:59 06:59 18:59 Intake Total 500 Output Total 400 Balance 100 Weight 156.489 kg Intake: IV 500 Output: Urine 400 Other: Voiding Method Toilet # Voids 2 - Exam GENERAL: Alert and oriented 3 and is up ambulating in room HEAD: Atraumatic, normocephalic. EYES: Pupils equal round and reactive to light, extraocular movements intact, sclera anicteric, conjunctiva are normal. ENT:nares patent, oropharynx clear without exudates. Moist mucous membranes. NECK: Normal range of motion, supple without lymphadenopathy or JVD, no thyromegaly LUNGS: Breath sounds clear to auscultation bilaterally and equal. No wheezes rales or rhonchi. HEART: Regular rate and rhythm without murmurs, rubs or gallops.S1S2 Normal ABDOMEN: Soft, status post surgery, hypoactive bowel sounds, No guarding. EXTREMITIES: Normal range of motion, no pitting or edema. No clubbing or cyanosis. NEUROLOGICAL: Cranial nerves II through XII grossly intact. No focal deficits SKIN: Warm, Dry, normal turgor, no rashes noted. - Labs CBC & Chem 7: 06/24/21 05:54 06/24/21 05:54 Labs: Abnormal Lab Results - Last 24 Hours (Table) 06/24/21 06/24/21 Range/Units 05:54 05:54 WBC 13.46 H (4.50-10.00) X 10*3/uL MCHC 31.7 L (32.0-37.0) g/dL Neutrophils # 10.58 H (1.80-7.70) X 10*3/uL Eosinophils # 0 L (0.04-0.35) X 10*3/uL Carbon Dioxide 18.5 L (20.0-27.5) mmol/L Phosphorus 2.2 L (2.4-5.1) mg/dL Assessment and Plan Assessment: (1) Morbid obesity Current Visit: Yes Status: Acute Code(s): E66.01 - MORBID (SEVERE) OBESITY DUE TO EXCESS CALORIES SNOMED Code(s): 401202196 (2) Hypertension Current Visit: Yes Status: Acute Code(s): I10 - ESSENTIAL (PRIMARY) HYPERTENSION SNOMED Code(s): 31225813 (3) S/P gastric sleeve procedure Current Visit: Yes Status: Acute Code(s): Z90.3 - ACQUIRED ABSENCE OF STOMACH [PART OF] SNOMED Code(s): 221539398650005 (4) Abdominal pain Current Visit: Yes Status: Acute Code(s): R10.9 - UNSPECIFIED ABDOMINAL PAIN SNOMED Code(s): 97870402 Plan: Continue on current medication regime ,monitoring and symptomatic treatment. Increase ambulation as tolerated. Discharge planning in progress as per primary. Follow-up with PCP in 1 week. The impression and plan of care has been dictated as directed. : I performed a history and examination of this patient, discussed the same with the dictator. I agree with the dictator's note ,documented as a scribe. Any additional findings or plans will be noted.
== END 2021-06-24 14:14 | disposition home or self-care (01) | DRG 621 ==
LOC: 2ORMAIN 06:22 → 4SSUR 16:13
PROVIDERS: ADMIT Surgery; ATTEND Surgery
PROC: 0DB64Z3 Excision of Stomach, Percutaneous Endoscopic Approach, Vertical (ICD-10-PCS; principal; 2021-06-23 07:40)
DX: E66.01 Morbid (severe) obesity due to excess calories (principal); Z68.42 Body mass index [BMI] 45.0-49.9, adult; I10 Essential (primary) hypertension; K57.90 Diverticulosis of intestine, part unspecified, without perforation or abscess without bleeding; Z79.899 Other long term (current) drug therapy; Z86.14 Personal history of Methicillin resistant Staphylococcus aureus infection; Z87.19 Personal history of other diseases of the digestive system; Z87.39 Personal history of other diseases of the musculoskeletal system and connective tissue; Z71.3 Dietary counseling and surveillance; Z88.5 Allergy status to narcotic agent
CPT/HCPCS: 74240; 80051; 82310; 82565; 83735; 84100; 84520; 85025; 88307

== ENCOUNTER → 2021-06-27 | Outpatient (CLI) | payer BC ==
[2021-06-27 12:05] VITALS: BP 136/85; PULSE 80; RESP 16; TEMP 97.6; BMI 48.4
== END ==
LOC: BARWHC3 10:42
PROVIDERS: ATTEND Surgery
DX: Z09 Encounter for follow-up examination after completed treatment for conditions other than malignant neoplasm (principal); Z98.84 Bariatric surgery status; Z88.5 Allergy status to narcotic agent
CPT/HCPCS: 99211

== ENCOUNTER → 2021-06-30 | Outpatient (CLI) | payer BC ==
[2021-06-30 13:25] VITALS: BP 131/89; PULSE 84; TEMP 98.2; BMI 48.3
--- NOTE | 2021-06-30 13:41 | P.HPBAR ---
Bariatric H&P - History & Physicial H&P Date: 06/30/21 History & Physicial: Visit/CC: sleeve f/u Patient initial contact: Initial weight: Initial weight in pounds: Height: 5 ft 9.5 in Initial BMI: Last weight: Current weight: 150.593 kg Current weight in pounds: 332.00 Current BMI: 48.3 [place] body weight (based on NIH guidelines): 73.936 kg Excess body weight loss: The patient is a 41 year-old M who presents for Bariatric Assessment.patient is postop 1 week from gastric sleeve surgery. He feels well. He denies any significant pain nausea or dysphagia. Past Medical History Past Medical History: Hypertension Additional Past Medical History / Comment(s): diverticulosis,diverticulitis, History of Any Multi-Drug Resistant Organisms: MRSA Year Discovered:: 2014 MDRO Source:: Right arm Past Surgical History: Back Surgery, Bariatric Surgery, Bowel Resection, Orthopedic Surgery Additional Past Surgical History / Comment(s): fistula repair. back surgery L4- L5. rt knee arthroscopy. EGD. gastric sleeve 06/23/21 Past Anesthesia/Blood Transfusion Reactions: No Reported Reaction Additional Past Anesthesia/Blood Transfusion Reaction / Comm: no hx blood transfusion Past Psychological History: No Psychological Hx Reported Smoking Status: Never smoker Past Alcohol Use History: None Reported Past Drug Use History: None Reported - Past Family History Father Family Medical History: No Reported History Surgical - Exam Vital Signs Temp Pulse BP 98.2 F 84 131/89 06/30/21 13:24 06/30/21 13:24 06/30/21 13:24 - General well developed, well nourished, no distress - Eyes PERRL - ENT normal pinna - Neck no masses - Respiratory normal expansion - Cardiovascular Rhythm: regular - Abdomen Abdomen: soft, non tender Bariatric Assessment & Plan Plan: status post sleeve gastrectomy. Patient is doing quite well. He will follow-up in one week. Bariatric Checklist Checklist: Plan: Checklist: EGD: 1. Hiatal hernia: 2. H. Pylori: HgbA1c: Vitamin D: Smoking: Never smoker Primary care physician referral: Dr. Yanes Psychiatry clearance: Cardiology clearance: Sleep study: Diet journal: VTE risk score: VTE risk level: Rehab needs at discharge:
== END ==
LOC: BARWHC3 12:49
PROVIDERS: ATTEND Surgery
DX: Z09 Encounter for follow-up examination after completed treatment for conditions other than malignant neoplasm (principal); Z98.84 Bariatric surgery status; I10 Essential (primary) hypertension; Z88.5 Allergy status to narcotic agent
CPT/HCPCS: 97802; 99211

== ENCOUNTER → 2021-07-14 | Outpatient (CLI) | payer BC ==
[2021-07-14 14:02] VITALS: BP 126/87; PULSE 103; RESP 12; TEMP 98; BMI 47.2
--- NOTE | 2021-07-14 15:06 | P.HPBAR ---
Bariatric H&P - History & Physicial H&P Date: 07/14/21 History & Physicial: Visit/CC: follow up post surgery Patient initial contact: Initial weight: Initial weight in pounds: Height: 5 ft 9.5 in Initial BMI: Last weight: Current weight: 147.145 kg Current weight in pounds: 324.40 Current BMI: 47.2 [place] body weight (based on NIH guidelines): 73.936 kg Excess body weight loss: The patient is a 41 year-old M who presents for Bariatric Assessment. Patient presents today for bariatric follow-up. He is doing quite well. He's had some minimal GERD. Past Medical History Past Medical History: Hypertension Additional Past Medical History / Comment(s): diverticulosis,diverticulitis, History of Any Multi-Drug Resistant Organisms: None Reported, MRSA Year Discovered:: 2014 MDRO Source:: Right arm Past Surgical History: Back Surgery, Bariatric Surgery, Bowel Resection, Orthopedic Surgery Additional Past Surgical History / Comment(s): fistula repair. back surgery L4- L5. rt knee arthroscopy. EGD. gastric sleeve 06/23/21 Past Anesthesia/Blood Transfusion Reactions: No Reported Reaction Additional Past Anesthesia/Blood Transfusion Reaction / Comm: no hx blood transfusion Past Psychological History: No Psychological Hx Reported Smoking Status: Never smoker Past Alcohol Use History: None Reported Past Drug Use History: None Reported - Past Family History Father Family Medical History: No Reported History Surgical - Exam Vital Signs Temp Pulse Resp BP 98 F 103 H 12 126/87 07/14/21 13:54 07/14/21 13:54 07/14/21 13:54 07/14/21 13:54 - General well developed, well nourished, no distress - Eyes PERRL - ENT normal pinna - Neck no masses - Respiratory normal expansion - Cardiovascular Rhythm: regular - Abdomen Abdomen: soft, non tender Bariatric Assessment & Plan Plan: Status post sleeve gastric. Patient is minimal will be observed. l he'll follow-up in 4 weeks. Bariatric Checklist Checklist: Plan: Checklist: EGD: 1. Hiatal hernia: 2. H. Pylori: HgbA1c: Vitamin D: Smoking: Never smoker Primary care physician referral: Dr. Yanes Psychiatry clearance: Cardiology clearance: Sleep study: Diet journal: VTE risk score: VTE risk level: Rehab needs at discharge:
[2021-07-14 22:53] LABS: HCT 46.9 % (39.6-50.0); HGB 14.8 g/dL (13.0-17.0); MCH 27.4 pg (27.0-32.0); MCHC 31.6 g/dL (32.0-37.0); MCV 86.9 fL (80.0-97.0); Mean Platelet Volume 11.5 fL (9.5-12.2); NRBC Per 100 WBC 0 /100 WBCS (0.0-0.0); Platelet Count 223 X 10*3/uL (140-440); RDW 14.3 % (11.5-14.5); WBC 6.15 X 10*3/uL (4.50-10.00)
[2021-07-14 23:39] LABS: % Iron Saturation 15.66 (15.00-50.00); African American GFR (CKD) 121.8 (60.0-200.0); Albumin 4.7 g/dL (3.8-4.9); Albumin/Globulin Ratio 2.03 (1.60-3.17); Anion Gap 14.8 mmol/L (10.00-18.00); BUN/Creat Ratio 16.26 Ratio (12.00-20.00); Blood Urea Nitrogen 14.8 mg/dL (9.0-27.0); Calcium 9.9 mg/dL (8.7-10.3); Globulin 2.3 g/dL (1.6-3.3); Magnesium 2.2 mg/dL (1.5-2.4); Non-African American GFR(CKD) 105.1 (60.0-200.0); Potassium 4.5 mmol/L (3.5-5.5); Total Bilirubin 0.4 mg/dL (0.30-1.20)
[2021-07-15 11:44] LABS: Zinc, Serum 99 ug/dL (60-130)
[2021-07-16 09:49] LABS: Vitamin A 40 ug/dL (38-106)
== END ==
LOC: BARWHC3 13:45
PROVIDERS: ATTEND Surgery
DX: E66.01 Morbid (severe) obesity due to excess calories (principal); D50.8 Other iron deficiency anemias; I10 Essential (primary) hypertension; E44.0 Moderate protein-calorie malnutrition; E55.9 Vitamin D deficiency, unspecified; T56.894A Toxic effect of other metals, undetermined, initial encounter; Z98.84 Bariatric surgery status; Z68.42 Body mass index [BMI] 45.0-49.9, adult
CPT/HCPCS: 80053; 82306; 82607; 82728; 82746; 83540; 83550; 83735; 84255; 84425; 84443; 84590; 84630; 85027; 99211

== ENCOUNTER → 2021-08-18 | Outpatient (CLI) | payer BC ==
[2021-08-18 14:40] VITALS: BP 133/88; PULSE 66; RESP 12; TEMP 97.8; BMI 43.7
--- NOTE | 2021-08-18 15:09 | P.HPBAR ---
Bariatric H&P - History & Physicial H&P Date: 08/18/21 History & Physicial: Visit/CC: 2 month follow up Patient initial contact: Initial weight: Initial weight in pounds: Height: 5 ft 9.5 in Initial BMI: Last weight: Current weight: 136.395 kg Current weight in pounds: 300.70 Current BMI: 43.7 [place] body weight (based on NIH guidelines): 73.936 kg Excess body weight loss: The patient is a 41 year-old M who presents for Bariatric Assessment. Patient presents today for sleeve gastrectomy follow-up. She's doing well. He had some minimal GERD symptoms. Past Medical History Past Medical History: Hypertension Additional Past Medical History / Comment(s): diverticulosis,diverticulitis, History of Any Multi-Drug Resistant Organisms: None Reported, MRSA Year Discovered:: 2014 MDRO Source:: Right arm Past Surgical History: Back Surgery, Bariatric Surgery, Bowel Resection, Orthopedic Surgery Additional Past Surgical History / Comment(s): fistula repair. back surgery L4- L5. rt knee arthroscopy. EGD. gastric sleeve 06/23/21 Past Anesthesia/Blood Transfusion Reactions: No Reported Reaction Additional Past Anesthesia/Blood Transfusion Reaction / Comm: no hx blood transfusion Past Psychological History: No Psychological Hx Reported Smoking Status: Never smoker Past Alcohol Use History: None Reported Past Drug Use History: None Reported - Past Family History Father Family Medical History: No Reported History Surgical - Exam Vital Signs Temp Pulse Resp BP 97.8 F 66 12 133/88 08/18/21 14:35 08/18/21 14:35 08/18/21 14:35 08/18/21 14:35 - General well developed, well nourished, no distress - Eyes PERRL - ENT normal pinna - Neck no masses - Abdomen Abdomen: soft, non tender Bariatric Assessment & Plan Plan: Improving morbid obesity. Patient will be scheduled for follow-up in 4 weeks. His GERD is minimal will be observed. Bariatric Checklist Checklist: Plan: Checklist: EGD: 1. Hiatal hernia: 2. H. Pylori: HgbA1c: Vitamin D: Smoking: Never smoker Primary care physician referral: Dr. Yanes Psychiatry clearance: Cardiology clearance: Sleep study: Diet journal: VTE risk score: VTE risk level: Rehab needs at discharge:
== END ==
LOC: BARWHC3 13:51
PROVIDERS: ATTEND Surgery
DX: E66.01 Morbid (severe) obesity due to excess calories (principal); I10 Essential (primary) hypertension; K21.9 Gastro-esophageal reflux disease without esophagitis; Z71.3 Dietary counseling and surveillance; Z79.899 Other long term (current) drug therapy; Z98.84 Bariatric surgery status; Z68.41 Body mass index [BMI] 40.0-44.9, adult; Z88.5 Allergy status to narcotic agent
CPT/HCPCS: 97803; 99211

== ENCOUNTER → 2021-09-22 | Outpatient (CLI) | payer BC ==
[2021-09-22 14:24] VITALS: BP 132/83; PULSE 65; TEMP 97.8; BMI 40.8
--- NOTE | 2021-09-23 16:07 | P.HPBAR ---
Bariatric H&P - History & Physicial H&P Date: 09/23/21 History & Physicial: Visit/CC: 3 month sleeve f/u Patient initial contact: Initial weight: Initial weight in pounds: Height: 5 ft 9.5 in Initial BMI: Last weight: Current weight: 127.459 kg Current weight in pounds: 281.00 Current BMI: 40.8 [place] body weight (based on NIH guidelines): 73.936 kg Excess body weight loss: The patient is a 41 year-old M who presents for Bariatric Assessment. Patient presents today for [place] fall. His current weight is 281 pounds his last weight was 300.7. He has some minimal GERD. Past Medical History Past Medical History: Hypertension Additional Past Medical History / Comment(s): diverticulosis,diverticulitis, History of Any Multi-Drug Resistant Organisms: None Reported, MRSA Year Discovered:: 2014 MDRO Source:: Right arm Past Surgical History: Back Surgery, Bariatric Surgery, Bowel Resection, Orthopedic Surgery Additional Past Surgical History / Comment(s): fistula repair. back surgery L4- L5. rt knee arthroscopy. EGD. gastric sleeve 06/23/21 Past Anesthesia/Blood Transfusion Reactions: No Reported Reaction Additional Past Anesthesia/Blood Transfusion Reaction / Comm: no hx blood transfusion Past Psychological History: No Psychological Hx Reported Smoking Status: Never smoker Past Alcohol Use History: None Reported Past Drug Use History: None Reported - Past Family History Father Family Medical History: No Reported History Surgical - Exam Vital Signs Temp Pulse BP 97.8 F 65 132/83 09/22/21 14:19 09/22/21 14:19 09/22/21 14:19 - General well developed, well nourished, no distress - Eyes PERRL - ENT normal nares - Neck no masses - Respiratory normal expansion - Cardiovascular Rhythm: regular - Abdomen Abdomen: soft, non tender Bariatric Assessment & Plan Plan: Improving morbid obesity. Patient's GERD is minimal will be observed. He'll follow-up in 4 weeks. Bariatric Checklist Checklist: Plan: Checklist: EGD: 1. Hiatal hernia: 2. H. Pylori: HgbA1c: Vitamin D: Smoking: Never smoker Primary care physician referral: Dr. Yanes Psychiatry clearance: Cardiology clearance: Sleep study: Diet journal: VTE risk score: VTE risk level: Rehab needs at discharge:
== END ==
LOC: BARWHC3 13:49
PROVIDERS: ATTEND Surgery
DX: E66.01 Morbid (severe) obesity due to excess calories (principal); I10 Essential (primary) hypertension; K21.9 Gastro-esophageal reflux disease without esophagitis; Z79.899 Other long term (current) drug therapy; Z98.84 Bariatric surgery status; Z88.5 Allergy status to narcotic agent; Z68.41 Body mass index [BMI] 40.0-44.9, adult
CPT/HCPCS: 99211

== ENCOUNTER → 2021-10-27 | Outpatient (CLI) | payer BC ==
[2021-10-27 14:19] VITALS: BP 126/79; PULSE 77; TEMP 98.2; BMI 38.4
--- NOTE | 2021-11-10 15:08 | P.HPBAR ---
Bariatric H&P - History & Physicial H&P Date: 10/27/21 History & Physicial: Visit/CC: sleeve f/u Patient initial contact: Initial weight: Initial weight in pounds: Height: 5 ft 9.5 in Initial BMI: Last weight: Current weight: 119.748 kg Current weight in pounds: 264.00 Current BMI: 38.4 [place] body weight (based on NIH guidelines): 73.936 kg Excess body weight loss: The patient is a 41 year-old M who presents for Bariatric Assessment. Patient presents today for sleeve gastrectomy follow-up. He's had excellent weight loss. His current weight is 264 pounds. He previously weight 201 pounds. He's had some mild GERD. Past Medical History Past Medical History: Hypertension Additional Past Medical History / Comment(s): diverticulosis,diverticulitis, History of Any Multi-Drug Resistant Organisms: None Reported, MRSA Year Discovered:: 2014 MDRO Source:: Right arm Past Surgical History: Back Surgery, Bariatric Surgery, Bowel Resection, Orthopedic Surgery Additional Past Surgical History / Comment(s): fistula repair. back surgery L4- L5. rt knee arthroscopy. EGD. gastric sleeve 06/23/21 Past Anesthesia/Blood Transfusion Reactions: No Reported Reaction Additional Past Anesthesia/Blood Transfusion Reaction / Comm: no hx blood transfusion Past Psychological History: No Psychological Hx Reported Smoking Status: Never smoker Past Alcohol Use History: None Reported Past Drug Use History: None Reported - Past Family History Father Family Medical History: No Reported History Surgical - Exam Vital Signs Temp Pulse BP 98.2 F 77 126/79 10/27/21 14:16 10/27/21 14:16 10/27/21 14:16 - General well developed, well nourished, no distress - Eyes PERRL - ENT normal pinna - Neck no masses - Respiratory normal expansion - Cardiovascular Rhythm: regular - Abdomen Abdomen: soft, non tender Bariatric Assessment & Plan Plan: S post sleeve gastrectomy. Patient's GERD is minimal and will be observed. He'll follow-up in 4 weeks. Bariatric Checklist Checklist: Plan: Checklist: EGD: 1. Hiatal hernia: 2. H. Pylori: HgbA1c: Vitamin D: Smoking: Never smoker Primary care physician referral: Dr. Yanes Psychiatry clearance: Cardiology clearance: Sleep study: Diet journal: VTE risk score: VTE risk level: Rehab needs at discharge:
== END ==
LOC: BARWHC3 13:52
PROVIDERS: ATTEND Surgery
DX: Z09 Encounter for follow-up examination after completed treatment for conditions other than malignant neoplasm (principal); K21.9 Gastro-esophageal reflux disease without esophagitis; I10 Essential (primary) hypertension; Z98.84 Bariatric surgery status; Z88.5 Allergy status to narcotic agent
CPT/HCPCS: 99211

== ENCOUNTER → 2021-11-24 | Outpatient (CLI) | payer BC ==
[2021-11-24 14:45] VITALS: BP 126/84; PULSE 72; TEMP 98.2; BMI 36.9
--- NOTE | 2021-12-09 12:22 | P.HPBAR ---
Bariatric H&P - History & Physicial H&P Date: 11/24/21 History & Physicial: Visit/CC: sleeve f/u Patient initial contact: Initial weight: Initial weight in pounds: Height: 5 ft 9.5 in Initial BMI: Last weight: Current weight: 115.212 kg Current weight in pounds: 254.00 Current BMI: 36.9 [place] body weight (based on NIH guidelines): 73.936 kg Excess body weight loss: The patient is a 41 year-old M who presents for Bariatric Assessment. Patient presents today for gastric sleeve follow-up. His current weight is 254 pounds. Weight 264 pounds was last visit. He's had some minimal GERD. He denies any dysphagia. Past Medical History Past Medical History: Hypertension Additional Past Medical History / Comment(s): diverticulosis,diverticulitis, History of Any Multi-Drug Resistant Organisms: None Reported, MRSA Year Discovered:: 2014 MDRO Source:: Right arm Past Surgical History: Back Surgery, Bariatric Surgery, Bowel Resection, Orthopedic Surgery Additional Past Surgical History / Comment(s): fistula repair. back surgery L4- L5. rt knee arthroscopy. EGD. gastric sleeve 06/23/21 Past Anesthesia/Blood Transfusion Reactions: No Reported Reaction Additional Past Anesthesia/Blood Transfusion Reaction / Comm: no hx blood transf usion Past Psychological History: No Psychological Hx Reported Smoking Status: Never smoker Past Alcohol Use History: None Reported Past Drug Use History: None Reported - Past Family History Father Family Medical History: No Reported History Surgical - Exam Vital Signs Temp Pulse BP 98.2 F 72 126/84 11/24/21 14:41 11/24/21 14:41 11/24/21 14:41 - General well developed, well nourished, no distress - Eyes PERRL - ENT normal pinna - Neck no masses - Respiratory normal expansion - Cardiovascular Rhythm: regular - Abdomen Abdomen: soft, non tender Bariatric Assessment & Plan Plan: Resolving morbid obesity. Patient's GERD is minimal and will be observed. He'll follow-up in 4 weeks. Bariatric Checklist Checklist: Plan: Checklist: EGD: 1. Hiatal hernia: 2. H. Pylori: HgbA1c: Vitamin D: Smoking: Never smoker Primary care physician referral: Dr. Yanes Psychiatry clearance: Cardiology clearance: Sleep study: Diet journal: VTE risk score: VTE risk level: Rehab needs at discharge:
== END ==
LOC: BARWHC3 14:20
PROVIDERS: ATTEND Surgery
DX: E66.01 Morbid (severe) obesity due to excess calories (principal); K21.9 Gastro-esophageal reflux disease without esophagitis; I10 Essential (primary) hypertension; Z88.5 Allergy status to narcotic agent; Z68.37 Body mass index [BMI] 37.0-37.9, adult
CPT/HCPCS: 99211

== ENCOUNTER 2022-11-11 11:38 | Observation (INO) | payer BC, OTHER ==
--- NOTE | 2022-11-11 12:01 | ED ---
General Adult HPI - General Source: patient, RN notes reviewed Mode of arrival: ambulatory Limitations: no limitations <Kale Ness - Last Filed: 11/11/22 12:00> <Ian Jacobo - Last Filed: 11/11/22 19:13> - General Stated complaint: Abd/back pain Time Seen by Provider: 11/11/22 12:01 - History of Present Illness Initial comments: 42-year-old male presents emergency Department chief complaint worsening abdominal pain. Patient's had a history of all resection from diverticulitis which she had fistula and 1, medications. Patient states that this pain is been increasing and waxing and waning. (Kale Ness) I agree with the above patient does present with 3 weeks of worsening left-sided abdominal pain is they have a history of diverticulitis with previous colonic surgery he did have a history of fistula. He states he been having pain it was very severe this morning he had trouble with any type of movement occasional chills and sweats and feeling hot. No nausea no vomiting no overt diarrhea. He thought at some point he may have a hemorrhoid but sure with the symptoms. (Ian Jacobo) - Related Data Home Medications Medication Instructions Recorded Confirmed No Known Home Medications 11/11/22 11/11/22 Allergies Allergy/AdvReac Type Severity Reaction Status Date / Time codeine Allergy Unknown Verified 11/11/22 18:30 Childhood Review of Systems ROS Other: All systems not noted in ROS Statement are negative. <Kale Ness - Last Filed: 11/11/22 12:00> ROS Other: All systems not noted in ROS Statement are negative. <Ian Jacobo - Last Filed: 11/11/22 19:13> ROS Statement: Those systems with pertinent positive or pertinent negative responses have been documented in the HPI. Past Medical History Past Medical History: Hypertension Additional Past Medical History / Comment(s): diverticulosis,diverticulitis, History of Any Multi-Drug Resistant Organisms: None Reported, MRSA Date of last positivie culture/infection: 2014 MDRO Source:: Right arm Past Surgical History: Back Surgery, Bariatric Surgery, Bowel Resection, Orthopedic Surgery Additional Past Surgical History / Comment(s): fistula repair. back surgery L4- L5. rt knee arthroscopy. EGD. gastric sleeve 06/23/21 Past Anesthesia/Blood Transfusion Reactions: No Reported Reaction Additional Past Anesthesia/Blood Transfusion Reaction / Comment(s): no hx blood transfusion Past Psychological History: No Psychological Hx Reported Smoking Status: Never smoker Past Alcohol Use History: None Reported Past Drug Use History: None Reported - Past Family History Father Family Medical History: No Reported History <Kale Ness - Last Filed: 11/11/22 12:00> General Exam <Kale Ness - Last Filed: 11/11/22 12:00> General appearance: alert, anxious Head exam: Present: atraumatic, normocephalic, normal inspection Eye exam: Present: normal appearance, PERRL, EOMI. Absent: scleral icterus, conjunctival injection, periorbital swelling ENT exam: Present: normal exam, mucous membranes moist Neck exam: Present: normal inspection. Absent: tenderness, meningismus, lymphadenopathy Respiratory exam: Present: normal lung sounds bilaterally. Absent: respiratory distress, wheezes, rales, rhonchi, stridor Cardiovascular Exam: Present: regular rate, normal rhythm, normal heart sounds. Absent: systolic murmur, diastolic murmur, rubs, gallop, clicks GI/Abdominal exam: Present: soft, tenderness (Tenderness to palpation with no definitive guarding at this time), normal bowel sounds. Absent: distended, guarding, rebound, rigid Rectal exam: Present: normal inspection, other (Perianal region tenderness palpation about 2 o'clock position no evidence of any eschar this does appear to be a tender hemorrhoid) exam: Present: normal inspection Extremities exam: Present: normal inspection, full ROM, normal capillary refill. Absent: tenderness, pedal edema, joint swelling, calf tenderness Back exam: Present: normal inspection Neurological exam: Present: alert, oriented X3, CN II-XII intact Psychiatric exam: Present: normal affect, normal mood Skin exam: Present: warm, dry, intact, normal color. Absent: rash <Ian Jacobo - Last Filed: 11/11/22 19:13> - General Exam Comments Initial Comments: Visual Physical Exam Vital signs reviewed General: Well-appearing, nontoxic, no acute distress. Head: Normocephalic, atraumatic Eyes: PERRLA, EOMI ENT: Airway patent Chest: Nonlabored breathing Skin: No visual rash, normal skin tone Neuro: Alert and oriented 3 Musculoskeletal: No gross abnormalities (Kale Ness) On my exam is a well-developed well-nourished awake alert oriented 4 male I do agree with the above. (Ian Jacobo) Course Vital Signs 11/11/22 11/11/22 12:08 17:50 Temperature 98.3 F Pulse Rate 85 80 Respiratory 18 18 Rate Blood Pressure 161/99 147/85 O2 Sat by Pulse 99 100 Oximetry Medical Decision Making <Kale Ness - Last Filed: 11/11/22 12:00> - Lab Data Result diagrams: 11/11/22 13:13 11/11/22 13:13 <Ian Jacobo - Last Filed: 11/11/22 19:13> - Medical Decision Making I performed a quick note portion of this Chart signed Kale Ness PA-C (Kale Ness) I did discuss the findings with patient and family as well as with Dr. Infante patient will be admitted with IV antibiotics pain control and hydration.Was pt. sent in by a medical professional or institution (, [facility], [employer], urgent care, hospital, or [place] health care facility...) When possible be specific @ -No Did you speak to anyone other than the patient for history (EMS, parent, family, police, friend...)? What history was obtained from this source @ -Family Did you review nursing and triage notes (agree or disagree)? Why? @ -I reviewed and agree with nursing and triage notes Were old charts reviewed (outside hosp., previous admission, EMS record, old EKG, old radiological studies, urgent care reports/EKG's, [place] health care facility records)? Report findings @ -Previous surgical old charts were reviewed Differential Diagnosis (chest pain, altered mental status, abdominal pain women, abdominal pain men, vaginal bleeding, weakness, fever, dyspnea, syncope, heada taylor, dizziness, GI bleed, back pain, seizure, CVA, palpatations, mental health, musculoskeletal)? @ -Abdominal pain EKG interpreted by me (3pts min.). @ -As above X-rays interpreted by me (1pt min.). @ -None done CT interpreted by me (1pt min.). @ -Interpreted by me evidence of stranding the left lower quadrant proctitis is considered peritoneal inflammation not ruled out U/S interpreted by me (1pt. min.). @ -None done What testing was considered but not performed or refused? (CT, X-rays, U/S, labs)? Why? @ -None What meds were considered but not given or refused? Why? @ -None Did you discuss the management of the patient with other professionals (professionals i.e. , PA, [employer]PAREL RENTAL CLERK, lab, RT, psych nurse, director of social media marketing, supervisor polishing, teacher, community chest officer, case work aide)? Give summary @ -Dr. Infante Was smoking cessation discussed for >3mins.? @ -No Was critical care preformed (if so, how long)? @ -No Were there social determinants of health that impacted care today? How? (Homelessness, low income, unemployed, alcoholism, drug addiction, transportation, low edu. Level, literacy, decrease access to med. care, alf, rehab)? @ -No Was there de-escalation of care discussed even if they declined (Discuss DNR or withdrawal of care, Hospice)? DNR status @ -No What co-morbidities impacted this encounter? (DM, HTN, Smoking, COPD, CAD, Canc er, CVA, ARF, Chemo, Hep., AIDS, mental health diagnosis, sleep apnea, morbid obesity)? @ -History of diverticulitis and previous surgery Was patient admitted / discharged? Hospital course, mention meds given and route, prescriptions, significant lab abnormalities, going to OR and other pertinent info. @ -hospital course she was admitted for IV antibiotics and pain control Undiagnosed new problem with uncertain prognosis? @ -No Drug Therapy requiring intensive monitoring for toxicity (Heparin, Nitro, Insulin, Cardizem)? @ -No Were any procedures done? @ -No Diagnosis/symptom? @ -Abdominal pain, acute proctitis, leukocytosis] Acute, or Chronic, or Acute on Chronic? @ -Acute Uncomplicated (without systemic symptoms) or Complicated (systemic symptoms)? @ - Side effects of treatment? @ -No Exacerbation, Progression, or Severe Exacerbation? @ -No Poses a threat to life or bodily function? How? (Chest pain, [place], [place], pneumonia, PE, COPD, DKA, ARF, appy, cholecystitis, CVA, Diverticulitis, Homicidal, Suicidal, threat to staff... and all critical care pts) @ -No (Ian Jacobo) - Lab Data Lab Results 11/11/22 11/11/22 11/11/22 Range/Units 12:50 13:13 13:13 WBC 11.3 H (3.8-10.6) k/uL RBC 5.43 (4.30-5.90) m/uL Hgb 15.6 (13.0-17.5) gm/dL Hct 47.7 (39.0-53.0) % MCV 87.9 (80.0-100.0) fL MCH 28.8 (25.0-35.0) pg MCHC 32.8 (31.0-37.0) g/dL RDW 13.0 (11.5-15.5) % Plt Count 282 (150-450) k/uL MPV 6.8 Neutrophils % 85 % Lymphocytes % 10 % Monocytes % 4 % Eosinophils % 1 % Basophils % 0 % Neutrophils # 9.5 H (1.3-7.7) k/uL Lymphocytes # 1.1 (1.0-4.8) k/uL Monocytes # 0.4 (0-1.0) k/uL Eosinophils # 0.1 (0-0.7) k/uL Basophils # 0.0 (0-0.2) k/uL Sodium 139 (137-145) mmol/L Potassium 4.6 (3.5-5.1) mmol/L Chloride 104 (98-107) mmol/L Carbon Dioxide 29 (22-30) mmol/L Anion Gap 6 mmol/L BUN 15 (9-20) mg/dL Creatinine 0.71 (0.66-1.25) mg/dL Est GFR (CKD-EPI)AfAm >90 (>60 ml/min/1.73 sqM) Est GFR (CKD-EPI)NonAf >90 (>60 ml/min/1.73 sqM) Glucose 101 H (74-99) mg/dL Plasma Lactic Acid Campbell (0.7-2.0) mmol/L Calcium 9.7 (8.4-10.2) mg/dL Total Bilirubin 1.2 (0.2-1.3) mg/dL AST 29 (17-59) U/L ALT 21 (4-49) U/L Alkaline Phosphatase 68 (38-126) U/L Total Protein 7.6 (6.3-8.2) g/dL Albumin 4.4 (3.5-5.0) g/dL Lipase 63 (23-300) U/L Urine Color Yellow Urine Appearance Clear (Clear) Urine pH 7.5 (5.0-8.0) Ur Specific Brogan 1.027 (1.001-1.035) Urine Protein Trace H (Negative) Urine Glucose (UA) Negative (Negative) Urine Ketones 1+ H (Negative) Urine Blood Negative (Negative) Urine Nitrite Negative (Negative) Urine Bilirubin Negative (Negative) Urine Urobilinogen <2.0 (<2.0) mg/dL Ur Leukocyte Esterase Negative (Negative) 11/11/22 Range/Units 13:13 WBC (3.8-10.6) k/uL RBC (4.30-5.90) m/uL Hgb (13.0-17.5) gm/dL Hct (39.0-53.0) % MCV (80.0-100.0) fL MCH (25.0-35.0) pg MCHC (31.0-37.0) g/dL RDW (11.5-15.5) % Plt Count (150-450) k/uL MPV Neutrophils % % Lymphocytes % % Monocytes % % Eosinophils % % Basophils % % Neutrophils # (1.3-7.7) k/uL Lymphocytes # (1.0-4.8) k/uL Monocytes # (0-1.0) k/uL Eosinophils # (0-0.7) k/uL Basophils # (0-0.2) k/uL Sodium (137-145) mmol/L Potassium (3.5-5.1) mmol/L Chloride (98-107) mmol/L Carbon Dioxide (22-30) mmol/L Anion Gap mmol/L BUN (9-20) mg/dL Creatinine (0.66-1.25) mg/dL Est GFR (CKD-EPI)AfAm (>60 ml/min/1.73 sqM) Est GFR (CKD-EPI)NonAf (>60 ml/min/1.73 sqM) Glucose (74-99) mg/dL Plasma Lactic Acid Campbell 0.9 (0.7-2.0) mmol/L Calcium (8.4-10.2) mg/dL Total Bilirubin (0.2-1.3) mg/dL AST (17-59) U/L ALT (4-49) U/L Alkaline Phosphatase (38-126) U/L Total Protein (6.3-8.2) g/dL Albumin (3.5-5.0) g/dL Lipase (23-300) U/L Urine Color Urine Appearance (Clear) Urine pH (5.0-8.0) Ur Specific Brogan (1.001-1.035) Urine Protein (Negative) Urine Glucose (UA) (Negative) Urine Ketones (Negative) Urine Blood (Negative) Urine Nitrite (Negative) Urine Bilirubin (Negative) Urine Urobilinogen (<2.0) mg/dL Ur Leukocyte Esterase (Negative) - Radiology Data Interpreted by me: CT evaluated by me and interpreted evidence of stranding in the left lower quadrant may be consistent with proctitis though perineal inflammation is not ruled out (Ian Jacobo) Disposition <Kale Ness - Last Filed: 11/11/22 12:00> Decision Date: 11/11/22 Decision Time: 18:30 <Ian Jacobo - Last Filed: 11/11/22 19:13> Clinical Impression: Acute abdominal pain, Proctitis, Leukocytosis, Intractable pain Disposition: ADMITTED IP TO THIS [facility] Condition: Fair Referrals: None,Stated [Primary Care Provider] - 1-2 days
[2022-11-11 12:12] VITALS: RESP 18
[2022-11-11 13:31] LABS: Appearance,Urine Clear (Clear); Bilirubin,Urine Negative (Negative); Blood,Urine Negative (Negative); Color,Urine Yellow; Glucose,Urine (UA) Negative (Negative); Ketones,Urine 1+ (Negative); Leukocyte Esterase,Urine Negative (Negative); Nitrite,Urine Negative (Negative); PH, Urine 7.5 (5.0-8.0); Protein,Urine Trace (Negative); Specific Gravity,Urine 1.027 (1.001-1.035); Urobilinogen,Urine <2.0 mg/dL (<2.0)
[2022-11-11 13:39] LABS: Basophils % (A) 0 %; Eosinophils # (A) 0.1 k/uL (0-0.7); Eosinophils % (A) 1 %; HCT 47.7 % (39.0-53.0); HGB 15.6 gm/dL (13.0-17.5); Lymphocytes # (A) 1.1 k/uL (1.0-4.8); Lymphocytes % (A) 10 %; MCH 28.8 pg (25.0-35.0); MCHC 32.8 g/dL (31.0-37.0); MCV 87.9 fL (80.0-100.0); Mean Platelet Volume 6.8; Monocytes # (A) 0.4 k/uL (0-1.0); Monocytes % (A) 4 %; Neutrophils # (A) 9.5 k/uL (1.3-7.7); Neutrophils % (A) 85 %; Platelet Count 282 k/uL (150-450); RBC 5.43 m/uL (4.30-5.90); WBC 11.3 k/uL (3.8-10.6)
[2022-11-11 13:56] LABS: ALT 21 U/L (4-49); AST 29 U/L (17-59); African American GFR (CKD) >90 (>60 ml/min/1.73 sqM); Albumin 4.4 g/dL (3.5-5.0); Alkaline Phosphatase 68 U/L (38-126); Anion Gap 6 mmol/L; Blood Urea Nitrogen 15 mg/dL (9-20); Calcium 9.7 mg/dL (8.4-10.2); Carbon Dioxide 29 mmol/L (22-30); Chloride 104 mmol/L (98-107); Glucose 101 mg/dL (74-99); Lipase 63 U/L (23-300); Non-African American GFR(CKD) >90 (>60 ml/min/1.73 sqM); Potassium 4.6 mmol/L (3.5-5.1); Sodium 139 mmol/L (137-145); Total Bilirubin 1.2 mg/dL (0.2-1.3); Total Protein 7.6 g/dL (6.3-8.2)
--- NOTE | 2022-11-11 14:53 | CT ---
EXAMINATION TYPE: CT abdomen pelvis w con CT DLP: 1101 mGycm, Automated exposure control for dose reduction was used. DATE OF EXAM: 11/11/2022 2:23 PM COMPARISON: 11/07/2018 CLINICAL INDICATION:Male, 42 years old with history of pain, history of bowel resection, diverticulit is; Abdominal pain, diverticulitis, history of bowel resection TECHNIQUE: Axial CT of the abdomen and pelvis. Sagittal and coronal reformats were created on a [employer] workstation. Contrast used:100 ml mL of Isovue 300 with IV Contrast, (none if empty) Oral contrast used: without Oral Contrast (none if empty) FINDINGS: LOWER CHEST: Unremarkable ABDOMEN LIVER: Unremarkable GALLBLADDER AND BILE DUCTS: Unremarkable. PANCREAS: Unremarkable. SPLEEN: Unremarkable. ADRENAL GLANDS: Unremarkable. KIDNEYS AND URETERS: No evidence of hydronephrosis or renal calculus. The ureters are unremarkable. PELVIS BLADDER: Unremarkable REPRODUCTIVE: Unremarkable. ABDOMEN & PELVIS STOMACH AND BOWEL: No evidence of bowel obstruction. Postsurgical changes to the bowel. There is a bl ind-ending outpouching at the anastomotic site. No evidence for diverticulitis. Postsurgical changes to the gastric wall. Small hiatal hernia is present. PERITONEUM/RETROPERITONEUM: No evidence of pneumoperitoneum or free fluid. VASCULATURE: No evidence of aortic aneurysm. MUSCULOSKELETAL: No acute osseous abnormalities LYMPH NODES: No gross evidence for lymphadenopathy. SOFT TISSUE/ABDOMINAL WALL: Fat stranding changes are seen around the perineum and around the anus. S eries 201 image 91. IMPRESSION: 1. Fat stranding changes around the rectum/anus correlate for proctitis/perineal infection. 2. Postoperative changes of the gastric wall and colon. No evidence for diverticulitis. No acute inf ectious process involving the colon.e 3. Small hiatal hernia.
[2022-11-11] MEDS ORDERED: KETOROLAC 15 MG/ML 1 ML VIAL IVP PRN (19:15)
[2022-11-11] MEDS ORDERED: NALOXONE 0.4 MG/ML 1 ML VIAL IV PRN (19:15)
[2022-11-11] MEDS ORDERED: ONDANSETRON 4 MG/2 ML VIAL IVP PRN (19:15)
[2022-11-11 20:14] LABS: Basophils % (A) 0 %; Eosinophils # (A) 0.2 k/uL (0-0.7); Eosinophils % (A) 2 %; HCT 45.1 % (39.0-53.0); HGB 14.7 gm/dL (13.0-17.5); Lymphocytes # (A) 1.9 k/uL (1.0-4.8); Lymphocytes % (A) 18 %; MCH 28.5 pg (25.0-35.0); MCHC 32.5 g/dL (31.0-37.0); MCV 87.5 fL (80.0-100.0); Mean Platelet Volume 7.1; Monocytes # (A) 0.5 k/uL (0-1.0); Monocytes % (A) 4 %; Neutrophils # (A) 7.8 k/uL (1.3-7.7); Neutrophils % (A) 74 %; Platelet Count 262 k/uL (150-450); RBC 5.16 m/uL (4.30-5.90); RDW 13.1 % (11.5-15.5); WBC 10.5 k/uL (3.8-10.6)
[2022-11-11] MEDS: SODIUM CHLORIDE 0.9% 1,000 ML IV SCH (20:22)
[2022-11-11] MEDS: PIPERACILLIN-TAZOBACTAM 3.375 GM in SODIUM CHLORIDE 0.9% 100 ML IVPB SCH (23:54)
[2022-11-12] MEDS: SODIUM CHLORIDE 0.9% 1,000 ML IV SCH ×3 (05:54→12:49)
[2022-11-12] MEDS: PIPERACILLIN-TAZOBACTAM 3.375 GM in SODIUM CHLORIDE 0.9% 100 ML IVPB SCH ×2 (08:52→16:40)
[2022-11-12] MEDS ORDERED: PANTOPRAZOLE 40 MG/10 ML VIAL IV SCH (09:00)
--- NOTE | 2022-11-12 10:10 | P.GSHP ---
History of Present Illness H&P Date: 11/12/22 Chief Complaint: Left lower quadrant pain and perirectal pain Is a 42-year-old male who had complaints of perirectal pain and some mild left lower quadrant pain. Patient was seen in the [place]. He'll have some inflammatory changes left lower quadrant and around his rectum. Patient's previous history of diverticulitis with low anterior resection. Patient states he feels better today. Past Medical History Past Medical History: Hypertension Additional Past Medical History / Comment(s): diverticulosis,diverticulitis, History of Any Multi-Drug Resistant Organisms: None Reported, MRSA Date of last positivie culture/infection: 2014 MDRO Source:: Right arm Past Surgical History: Back Surgery, Bariatric Surgery, Bowel Resection, Orthopedic Surgery Additional Past Surgical History / Comment(s): fistula repair. back surgery L4- L5. rt knee arthroscopy. EGD. gastric sleeve 06/23/21 Past Anesthesia/Blood Transfusion Reactions: No Reported Reaction Additional Past Anesthesia/Blood Transfusion Reaction / Comment(s): no hx blood transfusion Past Psychological History: No Psychological Hx Reported Smoking Status: Never smoker, Heavy tobacco smoker Past Alcohol Use History: Occasional Past Drug Use History: None Reported - Past Family History Father Family Medical History: No Reported History Medications and Allergies Home Medications Medication Instructions Recorded Confirmed Type No Known Home Medications 11/11/22 11/11/22 History Allergies Allergy/AdvReac Type Severity Reaction Status Date / Time codeine Allergy Unknown Verified 11/11/22 18:30 Childhood Surgical - Exam Vital Signs Temp Pulse Resp BP Pulse Ox 98.3 F 85 18 161/99 99 11/11/22 12:08 11/11/22 12:08 11/11/22 12:08 11/11/22 12:08 11/11/22 12:08 - General well developed, well nourished, no distress - Eyes PERRL - ENT normal pinna - Neck no masses - Respiratory normal expansion - Cardiovascular Rhythm: regular - Abdomen Abdomen: soft, non tender Results - Labs 11/11/22 20:00 11/11/22 13:13 Abnormal Lab Results - Last 24 Hours (Table) 11/11/22 11/11/22 11/11/22 Range/Units 12:50 13:13 13:13 WBC 11.3 H (3.8-10.6) k/uL Neutrophils # 9.5 H (1.3-7.7) k/uL Glucose 101 H (74-99) mg/dL Urine Protein Trace H (Negative) Urine Ketones 1+ H (Negative) 11/11/22 Range/Units 20:00 WBC (3.8-10.6) k/uL Neutrophils # 7.8 H (1.3-7.7) k/uL Glucose (74-99) mg/dL Urine Protein (Negative) Urine Ketones (Negative) Diabetes panel 11/11/22 Range/Units 13:13 Sodium 139 (137-145) mmol/L Potassium 4.6 (3.5-5.1) mmol/L Chloride 104 (98-107) mmol/L Carbon Dioxide 29 (22-30) mmol/L BUN 15 (9-20) mg/dL Creatinine 0.71 (0.66-1.25) mg/dL Glucose 101 H (74-99) mg/dL Calcium 9.7 (8.4-10.2) mg/dL AST 29 (17-59) U/L ALT 21 (4-49) U/L Alkaline Phosphatase 68 (38-126) U/L Total Protein 7.6 (6.3-8.2) g/dL Albumin 4.4 (3.5-5.0) g/dL Calcium panel 11/11/22 Range/Units 13:13 Calcium 9.7 (8.4-10.2) mg/dL Albumin 4.4 (3.5-5.0) g/dL Pituitary panel 11/11/22 Range/Units 13:13 Sodium 139 (137-145) mmol/L Potassium 4.6 (3.5-5.1) mmol/L Chloride 104 (98-107) mmol/L Carbon Dioxide 29 (22-30) mmol/L BUN 15 (9-20) mg/dL Creatinine 0.71 (0.66-1.25) mg/dL Glucose 101 H (74-99) mg/dL Calcium 9.7 (8.4-10.2) mg/dL Adrenal panel 11/11/22 Range/Units 13:13 Sodium 139 (137-145) mmol/L Potassium 4.6 (3.5-5.1) mmol/L Chloride 104 (98-107) mmol/L Carbon Dioxide 29 (22-30) mmol/L BUN 15 (9-20) mg/dL Creatinine 0.71 (0.66-1.25) mg/dL Glucose 101 H (74-99) mg/dL Calcium 9.7 (8.4-10.2) mg/dL Total Bilirubin 1.2 (0.2-1.3) mg/dL AST 29 (17-59) U/L ALT 21 (4-49) U/L Alkaline Phosphatase 68 (38-126) U/L Total Protein 7.6 (6.3-8.2) g/dL Albumin 4.4 (3.5-5.0) g/dL - Imaging CT scan - pelvis: report reviewed (Fat stranding in the perirectal area no abscess visualized.)
[2022-11-12 21:52] VITALS: BP 125/81; PULSE 63; TEMP 98.1
[2022-11-13] MEDS: PIPERACILLIN-TAZOBACTAM 3.375 GM in SODIUM CHLORIDE 0.9% 100 ML IVPB SCH (01:03)
== END 2022-11-13 01:35 | disposition left against medical advice (07) ==
LOC: EC 11:38 → INTOOBSV 19:16 → 4SSUR 19:16 → 1SOBS 11-12 15:22
PROVIDERS: ADMIT Surgery; ATTEND Surgery
DX: R10.32 Left lower quadrant pain (principal); K62.89 Other specified diseases of anus and rectum; D72.829 Elevated white blood cell count, unspecified; I10 Essential (primary) hypertension; Z87.19 Personal history of other diseases of the digestive system; Z98.84 Bariatric surgery status; Z88.5 Allergy status to narcotic agent
CPT/HCPCS: 96361 ×2; 96366 ×3; 96365; 96375 ×2; 99285; 36415; 80053; 83605; 83690; 85025; 81003; 74177; G0378 ×4; J2543 ×3; J1885; C9113; Q9967; 96374

== ENCOUNTER 2022-11-13 10:38 | Observation (INO) | payer OTHER ==
[2022-11-13] MEDS ORDERED: KETOROLAC 15 MG/ML 1 ML VIAL IVP STA (11:02)
--- NOTE | 2022-11-13 11:03 | ED ---
General Adult HPI - General Chief complaint: Abdominal Pain Stated complaint: Abd Pain - revisit Time Seen by Provider: 11/13/22 10:44 Source: patient, RN notes reviewed Mode of arrival: ambulatory Limitations: no limitations - History of Present Illness Initial comments: Patient is a pleasant 42-year-old male presenting to the emergency department with concerns for abdominal pain. Onset of symptoms was a few days ago. Patient was in the emergency department admitted yesterday. Patient states he was upset with nursing care during the night and left. Patient did speak with Dr. Infante's nurse and was advised come back to the hospital. Patient has had some chills for the past few days, unsure if there has been fever. - Related Data Home Medications Medication Instructions Recorded Confirmed No Known Home Medications 11/11/22 11/11/22 Allergies Allergy/AdvReac Type Severity Reaction Status Date / Time codeine Allergy Unknown Verified 11/13/22 10:42 Childhood Review of Systems ROS Statement: Those systems with pertinent positive or pertinent negative responses have been documented in the HPI. ROS Other: All systems not noted in ROS Statement are negative. Constitutional: Reports: chills Eyes: Denies: eye pain ENT: Denies: ear pain Respiratory: Denies: dyspnea Cardiovascular: Denies: chest pain Endocrine: Denies: fatigue Gastrointestinal: Reports: as per HPI, abdominal pain Genitourinary: Denies: dysuria Musculoskeletal: Denies: back pain Past Medical History Past Medical History: Hypertension Additional Past Medical History / Comment(s): diverticulosis,diverticulitis, History of Any Multi-Drug Resistant Organisms: None Reported, MRSA Date of last positivie culture/infection: 2014 MDRO Source:: Right arm Past Surgical History: Back Surgery, Bariatric Surgery, Bowel Resection, Orthopedic Surgery Additional Past Surgical History / Comment(s): fistula repair. back surgery L4- L5. rt knee arthroscopy. EGD. gastric sleeve 06/23/21 Past Anesthesia/Blood Transfusion Reactions: No Reported Reaction Additional Past Anesthesia/Blood Transfusion Reaction / Comment(s): no hx blood transfusion Past Psychological History: No Psychological Hx Reported Smoking Status: Never smoker Past Alcohol Use History: Occasional Past Drug Use History: None Reported - Past Family History Father Family Medical History: No Reported History General Exam Limitations: no limitations General appearance: alert, in no apparent distress Head exam: Present: normocephalic Eye exam: Present: normal appearance Respiratory exam: Present: normal lung sounds bilaterally Cardiovascular Exam: Present: regular rate, normal rhythm GI/Abdominal exam: Present: tenderness (Mostly left upper, mild to moderate), normal bowel sounds. Absent: guarding Extremities exam: Present: normal inspection Neurological exam: Present: alert Psychiatric exam: Present: normal affect, normal mood Skin exam: Present: normal color Course Vital Signs 11/13/22 10:39 Temperature 98.2 F Pulse Rate 81 Respiratory 18 Rate Blood Pressure 132/85 O2 Sat by Pulse 99 Oximetry Medical Decision Making - Medical Decision Making Was pt. sent in by a medical professional or institution (, PA, DOCTOR OF OPTOMETRY, urgent care, hospital, or [facility]...) When possible be specific @ -No Did you speak to anyone other than the patient for history (EMS, parent, family, police, friend...)? What history was obtained from this source @ -No Did you review nursing and triage notes (agree or disagree)? Why? @ -I reviewed and agree with nursing and triage notes Were old charts reviewed (outside hosp., previous admission, EMS record, old EKG, old radiological studies, urgent care reports/EKG's, [facility] records)? Report findings @ -Reviewed computed tomography scan done yesterday Differential Diagnosis (chest pain, altered mental status, abdominal pain women, abdominal pain men, vaginal bleeding, weakness, fever, dyspnea, syncope, headache, dizziness, GI bleed, back pain, seizure, CVA, palpatations, mental health, musculoskeletal)? @ -Differential Abdominal Pain Men: Appendicitis, cholecystitis, diverticulosis, ischemic bowel, pancreatitis, hepatitis, UTI, gastroenteritis, AAA, incarcerated hernia, bowel obstruction, constipation, inflammatory bowel, hepatitis, peptic ulcer disease, splenic infarction, perforated viscus, testicular torsion, this is not meant to be an all-inclusive list EKG interpreted by me (3pts min.). @ -As above X-rays interpreted by me (1pt min.). @ -None done CT interpreted by me (1pt min.). @ -None done U/S interpreted by me (1pt. min.). @ -None done What testing was considered but not performed or refused? (CT, X-rays, U/S, labs)? Why? @ -None What meds were considered but not given or refused? Why? @ -None Did you discuss the management of the patient with other professionals (professionals i.e. DrGonzález, PA, DOCTOR OF OPTOMETRY, lab, RT, psych nurse, director social, reference library assistant, teacher, technology officer, leather case finisher)? Give summary @ -Case was discussed with Dr. Infante who is familiar with this patient and will admit. He would like to continue Zosyn. Was smoking cessation discussed for >3mins.? @ -No Was critical care preformed (if so, how long)? @ -No Were there social determinants of health that impacted care today? How? (Christophe elessness, low income, unemployed, alcoholism, drug addiction, transportation, low edu. Level, literacy, decrease access to med. care, usp, rehab)? @ -No Was there de-escalation of care discussed even if they declined (Discuss DNR or withdrawal of care, Hospice)? DNR status @ -No What co-morbidities impacted this encounter? (DM, HTN, Smoking, COPD, CAD, Cancer, CVA, ARF, Chemo, Hep., AIDS, mental health diagnosis, sleep apnea, morbid obesity)? @ -None Was patient admitted / discharged? Hospital course, mention meds given and route, prescriptions, significant lab abnormalities, going to OR and other pertinent info. @ -Patient is aware of diagnosis and plan. Patient will be admitted. Orders written. Undiagnosed new problem with uncertain prognosis? @ -No Drug Therapy requiring intensive monitoring for toxicity (Heparin, Nitro, Insulin, Cardizem)? @ -No Were any procedures done? @ -No Diagnosis/symptom? @ -Abdominal pain, proctitis Acute, or Chronic, or Acute on Chronic? @ -Acute, acute Uncomplicated (without systemic symptoms) or Complicated (systemic symptoms)? @ -default Side effects of treatment? @ -No Exacerbation, Progression, or Severe Exacerbation? @ -No Poses a threat to life or bodily function? How? (Chest pain, USA, VT, pneumonia, PE, COPD, DKA, ARF, appy, cholecystitis, CVA, Diverticulitis, Homicidal, Suicidal, threat to staff... and all critical care pts) @ -No Disposition Clinical Impression: Abdominal pain, Proctitis Disposition: ADMITTED IP TO THIS HOSP Is patient prescribed a controlled substance at d/c from ED?: No Referrals: None,Stated [Primary Care Provider] - 1-2 days Time of Disposition: 11:06
[2022-11-13] MEDS ORDERED: traMADol 50 MG TAB PO PRN (11:06)
[2022-11-13] MEDS ORDERED: ACETAMINOPHEN TAB 325 MG TAB PO PRN (11:06)
[2022-11-13] MEDS ORDERED: ONDANSETRON 4 MG/2 ML VIAL IVP PRN (11:06)
[2022-11-13] MEDS ORDERED: NALOXONE 0.4 MG/ML 1 ML VIAL IV PRN (11:06)
[2022-11-13] MEDS: PIPERACILLIN-TAZOBACTAM 3.375 GM in SODIUM CHLORIDE 0.9% 100 ML IVPB SCH ×2 (11:20→20:47)
[2022-11-13 11:21] LABS: Basophils % (A) 0 %; Eosinophils # (A) 0.2 k/uL (0-0.7); Eosinophils % (A) 4 %; HCT 45.5 % (39.0-53.0); HGB 14.6 gm/dL (13.0-17.5); Lymphocytes # (A) 1.5 k/uL (1.0-4.8); Lymphocytes % (A) 30 %; MCH 28.4 pg (25.0-35.0); MCV 88.9 fL (80.0-100.0); Mean Platelet Volume 7.3; Monocytes # (A) 0.2 k/uL (0-1.0); Monocytes % (A) 4 %; Neutrophils # (A) 3.1 k/uL (1.3-7.7); Neutrophils % (A) 60 %; Platelet Count 242 k/uL (150-450); RBC 5.11 m/uL (4.30-5.90); WBC 5.2 k/uL (3.8-10.6)
[2022-11-13] MEDS: PANTOPRAZOLE 40 MG/10 ML VIAL IV SCH (11:27)
[2022-11-13 11:33] LABS: ALT 18 U/L (4-49); AST 23 U/L (17-59); African American GFR (CKD) >90 (>60 ml/min/1.73 sqM); Albumin 3.7 g/dL (3.5-5.0); Alkaline Phosphatase 61 U/L (38-126); Anion Gap 9 mmol/L; Blood Urea Nitrogen 16 mg/dL (9-20); Calcium 9.1 mg/dL (8.4-10.2); Carbon Dioxide 25 mmol/L (22-30); Chloride 107 mmol/L (98-107); Glucose 118 mg/dL (74-99); Non-African American GFR(CKD) >90 (>60 ml/min/1.73 sqM); Potassium 4.3 mmol/L (3.5-5.1); Sodium 141 mmol/L (137-145); Total Bilirubin 0.9 mg/dL (0.2-1.3); Total Protein 6.6 g/dL (6.3-8.2)
[2022-11-13 11:38] LABS: INR 0.9 (<1.2); Partial Thromboplastin Time 22.2 sec (22.0-30.0); Prothrombin Time 9.4 sec (9.0-12.0)
--- NOTE | 2022-11-13 16:14 | P.GSHP ---
History of Present Illness H&P Date: 11/13/22 CHIEF COMPLAINT: Perineal pain HISTORY OF PRESENT ILLNESS: This is a 42-year-old male who presented to the hospital yesterday with perineal pain and left upper quadrant pain. Patient's was admitted to the hospital and is being treated for inflammation at the perineal area. There is no evidence of abscess on CAT scan. He was started on IV antibiotics. Apparently during the night on patient had a confrontation with nursing staff. Lane that he was not getting appropriate care. And left AGAINST MEDICAL ADVICE. Patient returns to the ER with complaints of same pain. Patient reports that he overall he has been dealing with this pain for about 3 weeks. He has felt feverish. Last colonoscopy was 5 years ago and reports diverticulosis. He does have a history of perforated diverticulitis with fistula and a lower anterior resection in 2018. Also has had a sleeve gastrectomy in 2021. PAST MEDICAL HISTORY: Diverticulosis, hypertension PAST SURGICAL HISTORY: Back Surgery, Bariatric Surgery, Bowel Resection, Orthopedic Surgery MEDICATIONS: See below ALLERGIES: See below SOCIAL HISTORY: No illicit drug use. REVIEW OF SYSTEMS: CONSTITUTIONAL: Denies fever or chills. HEENT: Denies blurred vision, vision changes, or eye pain. Denies hemoptysis CARDIOVASCULAR: Denies chest pain or pressure. RESPIRATORY: No shortness of breath. GASTROINTESTINAL: See HPI for pertinent findings HEMATOLOGIC: Denies bleeding disorders. GENITOURINARY: Denies any blood in urine or increased urinary frequency. SKIN: Denies pruitis. Denies rash. PHYSICAL EXAM: VITAL SIGNS: Reviewed GENERAL: Well-developed in no acute distress. ABDOMEN: Soft. Nondistended. Tenderness to palpation left upper quadrant rectum tenderness in the perineal area. No redness. No drainage no hemorrhoid s. Test palpation in the perirectal area on the left side of the anus. NEUROLOGIC: Alert and oriented. Cranial nerves II through XII grossly intact. LABORATORY DATA: WBC 5.2 Hgb 14.6 platelets 242 WBC had been 11.3 on admission 11/11/2022 INR 0.9 Sodium 141 potassium 4.3 creatinine 0.78 lactic acid 1.1 IMAGING: Computed tomography scan from 11/11/2022 showed fat stranding around the rectum/anus correlate for proctitis/perineal infection. No evidence of diverticulitis. No acute infectious process involving the colon. Small hiatal hernia. ASSESSMENT: 1. Inflammation of perineal area PLAN: -Continue to observe -Continue IV antibiotics -Continue pain management -Okay to resume regular diet Physician Cell Stripper Final note has been reviewed by physician. Signing provider agrees with the documented findings, assessment, and plan of care. Past Medical History Past Medical History: Hypertension Additional Past Medical History / Comment(s): diverticulosis,diverticulitis, History of Any Multi-Drug Resistant Organisms: None Reported, MRSA Date of last positivie culture/infection: 2014 MDRO Source:: Right arm Past Surgical History: Back Surgery, Bariatric Surgery, Bowel Resection, Orthopedic Surgery Additional Past Surgical History / Comment(s): fistula repair. back surgery L4- L5. rt knee arthroscopy. EGD. gastric sleeve 06/23/21 Past Anesthesia/Blood Transfusion Reactions: No Reported Reaction Additional Past Anesthesia/Blood Transfusion Reaction / Comment(s): no hx blood transfusion Past Psychological History: No Psychological Hx Reported Smoking Status: Never smoker Past Alcohol Use History: Occasional Past Drug Use History: None Reported - Past Family History Father Family Medical History: No Reported History Medications and Allergies Home Medications Medication Instructions Recorded Confirmed Type No Known Home Medications 11/11/22 11/13/22 History Allergies Allergy/AdvReac Type Severity Reaction Status Date / Time codeine Allergy Unknown Verified 11/13/22 12:31 Childhood Surgical - Exam Vital Signs Temp Pulse Resp BP Pulse Ox 98.2 F 81 18 132/85 99 11/13/22 10:39 11/13/22 10:39 11/13/22 10:39 11/13/22 10:39 11/13/22 10:39 Results - Labs 11/13/22 11:05 11/13/22 11:05 Abnormal Lab Results - Last 24 Hours (Table) 11/13/22 Range/Units 11:05 Glucose 118 H (74-99) mg/dL Diabetes panel 11/13/22 Range/Units 11:05 Sodium 141 (137-145) mmol/L Potassium 4.3 (3.5-5.1) mmol/L Chloride 107 (98-107) mmol/L Carbon Dioxide 25 (22-30) mmol/L BUN 16 (9-20) mg/dL Creatinine 0.78 (0.66-1.25) mg/dL Glucose 118 H (74-99) mg/dL Calcium 9.1 (8.4-10.2) mg/dL AST 23 (17-59) U/L ALT 18 (4-49) U/L Alkaline Phosphatase 61 (38-126) U/L Total Protein 6.6 (6.3-8.2) g/dL Albumin 3.7 (3.5-5.0) g/dL Calcium panel 11/13/22 Range/Units 11:05 Calcium 9.1 (8.4-10.2) mg/dL Albumin 3.7 (3.5-5.0) g/dL Pituitary panel 11/13/22 Range/Units 11:05 Sodium 141 (137-145) mmol/L Potassium 4.3 (3.5-5.1) mmol/L Chloride 107 (98-107) mmol/L Carbon Dioxide 25 (22-30) mmol/L BUN 16 (9-20) mg/dL Creatinine 0.78 (0.66-1.25) mg/dL Glucose 118 H (74-99) mg/dL Calcium 9.1 (8.4-10.2) mg/dL Adrenal panel 11/13/22 Range/Units 11:05 Sodium 141 (137-145) mmol/L Potassium 4.3 (3.5-5.1) mmol/L Chloride 107 (98-107) mmol/L Carbon Dioxide 25 (22-30) mmol/L BUN 16 (9-20) mg/dL Creatinine 0.78 (0.66-1.25) mg/dL Glucose 118 H (74-99) mg/dL Calcium 9.1 (8.4-10.2) mg/dL Total Bilirubin 0.9 (0.2-1.3) mg/dL AST 23 (17-59) U/L ALT 18 (4-49) U/L Alkaline Phosphatase 61 (38-126) U/L Total Protein 6.6 (6.3-8.2) g/dL Albumin 3.7 (3.5-5.0) g/dL
[2022-11-13] MEDS: SODIUM CHLORIDE 0.9% 1,000 ML IV SCH ×2 (20:45)
[2022-11-14] MEDS: PIPERACILLIN-TAZOBACTAM 3.375 GM in SODIUM CHLORIDE 0.9% 100 ML IVPB SCH ×3 (03:00→18:30)
[2022-11-14] MEDS: KETOROLAC 15 MG/ML 1 ML VIAL IVP PRN ×3 (03:15→18:30)
[2022-11-14] MEDS: SODIUM CHLORIDE 0.9% 1,000 ML IV SCH ×3 (03:18→21:44)
[2022-11-14] MEDS: PANTOPRAZOLE 40 MG/10 ML VIAL IV SCH (08:09)
[2022-11-14 11:24] LABS: Basophils # (A) 0.05 X 10*3/uL (0.00-0.10); Basophils % (A) 0.8 %; Eosinophils # (A) 0.27 X 10*3/uL (0.04-0.35); Eosinophils % (A) 4.1 %; HCT 41.1 % (39.6-50.0); HGB 13.1 d/dL (13.0-17.0); Lymphocytes # (A) 1.92 X 10*3/uL (0.90-5.00); Lymphocytes % (A) 29.1 %; MCH 28.2 pg (27.0-32.0); MCHC 31.9 d/dL (32.0-37.0); MCV 88.6 FL (80.0-97.0); Mean Platelet Volume 9.6 FL (9.5-12.2); Monocytes # (A) 0.44 X 10*3/uL (0.20-1.00); Monocytes % (A) 6.7 %; NRBC Per 100 WBC 0 X 10*3/uL (0.00-0.01); Platelet Count 208 X 10*3/uL (140-440); RBC 4.64 X 10*6/uL (4.40-5.60); RDW 13.1 % (11.5-14.5)
[2022-11-14 11:29] LABS: BUN/Creat Ratio 22.14 Ratio (12.00-20.00); Blood Urea Nitrogen 15.5 mg/dL (9.0-27.0); Calcium 8.8 mg/dL (8.7-10.3); Carbon Dioxide 24.9 mmol/L (21.6-31.8); Chloride 112 mmol/L (96-109); Glucose 88 mg/dL (70-110); Potassium 4.2 mmol/L (3.5-5.5); Sodium 146 mmol/L (135-145)
--- NOTE | 2022-11-14 12:49 | P.PN ---
Progress Note - Text Progress Note Date: 11/14/22 Patient feels slightly better today. He still has some left lower quadrant pain. On exam vital signs are stable. Abdomen soft. Inflammatory change and left lower quadrant. Patient to receive IV antibiotics. If the patient has worsening pain he will undergo repeat CAT scan. Currently he will be observed.
[2022-11-15] MEDS: SODIUM CHLORIDE 0.9% 1,000 ML IV SCH ×2 (01:47→12:11)
[2022-11-15] MEDS: PIPERACILLIN-TAZOBACTAM 3.375 GM in SODIUM CHLORIDE 0.9% 100 ML IVPB SCH ×3 (02:37→18:36)
[2022-11-15] MEDS: PANTOPRAZOLE 40 MG/10 ML VIAL IV SCH (08:07)
--- NOTE | 2022-11-15 09:57 | P.PN ---
Progress Note - Text Progress Note Date: 11/15/22 The patient had spontaneous drainage of his perineal body abscess last night. He states he feels better. On exam vital signs are stable. Abdomen is soft. There is minimal discomfort over the perineum. Patient will continue IV antibiotics for another day. He was discharged home tomorrow.
[2022-11-16] MEDS: SODIUM CHLORIDE 0.9% 1,000 ML IV SCH ×3 (01:32→11:17)
[2022-11-16] MEDS: PIPERACILLIN-TAZOBACTAM 3.375 GM in SODIUM CHLORIDE 0.9% 100 ML IVPB SCH ×2 (01:58→12:16)
[2022-11-16 07:49] VITALS: RESP 18
[2022-11-16] MEDS: PANTOPRAZOLE 40 MG/10 ML VIAL IV SCH (08:30)
[2022-11-16 12:24] VITALS: BP 138/84; PULSE 73; TEMP 98.6
--- NOTE | 2022-11-16 13:22 | P.DS ---
Providers Date of admission: 11/13/22 11:06 Expected date of discharge: 11/16/22 Attending physician: Kody Infante Primary care physician: Stated None Hospital Course: Discharge diagnosis 1. Perineal abscess with spontaneous drainage Hospital course This is a 42-year-old male who presented with pain in the perineal area. Computed tomography scan had showed inflammation in that area. Patient had developed an abscess that drained. After the drainage the pain has improved greatly. He is afebrile. He is still having active draining. Patient has been up and ambulating. He is tolerating diet. He is stable for discharge. Please refer to chart for any further details. Patient to be discharged with oral antibiotics. Physician Dive Superintendent note has been reviewed by physician. Signing provider agrees with the documented findings, assessment, and plan of care. Patient Condition at Discharge: Stable Plan - Discharge Summary New Discharge Prescriptions: New Levofloxacin [Levaquin] 500 mg PO DAILY 10 Days #10 tab metroNIDAZOLE [Flagyl] 500 mg PO TID 10 Days #30 tab Discharge Medication List Levofloxacin [Levaquin] 500 mg PO DAILY 10 Days #10 tab 11/16/22 [Rx] metroNIDAZOLE [Flagyl] 500 mg PO TID 10 Days #30 tab 11/16/22 [Rx] Follow up Appointment(s)/Referral(s): None,Stated [Primary Care Provider] - 1-2 days Kody Infante MD [STAFF PHYSICIAN] - 11/24/22 2:40 pm Activity/Diet/Wound Care/Special Instructions: Patient to stay off of work until seen by surgeon next week Patient to shower daily and as needed Discharge Disposition: HOME SELF-CARE
== END 2022-11-16 14:24 | disposition home or self-care (01) ==
LOC: EC 10:38 → 5NMEDONC 11:06 → INTOOBSV 11:06 → 5NMEDONC 20:31
PROVIDERS: ADMIT Surgery; ATTEND Surgery
DX: L02.215 Cutaneous abscess of perineum (principal); K44.9 Diaphragmatic hernia without obstruction or gangrene; I10 Essential (primary) hypertension; K62.89 Other specified diseases of anus and rectum; Z88.5 Allergy status to narcotic agent; Z87.19 Personal history of other diseases of the digestive system; Z86.14 Personal history of Methicillin resistant Staphylococcus aureus infection; Z98.84 Bariatric surgery status; Z90.49 Acquired absence of other specified parts of digestive tract; Z98.890 Other specified postprocedural states
CPT/HCPCS: 96376 ×3; 96361 ×3; 96366 ×5; 96365; 96375; 99285; 36415; 80053; 80048; 83605; 85025 ×2; 85610; 85730; 87040; G0378; J2543 ×4; J1885 ×2; C9113 ×4

== ENCOUNTER 2022-12-02 12:39 | Emergency (ER) | payer OTHER ==
[2022-12-02 12:45] VITALS: RESP 18
--- NOTE | 2022-12-02 14:09 | ED ---
Abdominal Pain HPI - General Source: patient, RN notes reviewed Mode of arrival: ambulatory Limitations: no limitations <Kale Ness - Last Filed: 12/02/22 14:08> - History of Present Illness MD Complaint: abdominal pain -: week(s) Location: [facility] Radiation: none Migration to: no migration Severity: moderate Quality: cramping, aching Improves With: nothing Worsens With: nothing Associated Symptoms: denies other symptoms <Vitaliy Cardoza - Last Filed: 12/08/22 09:05> - General Chief Complaint: Abdominal Pain Stated Complaint: abd pain Time Seen by Provider: 12/02/22 14:08 - History of Present Illness Initial Comments: 42-year-old male presents emergency Department chief complaint abdominal pain, rectal pain. Patient was admitted last month for proctitis. Patient states she's having mucousy discharge. Patient called his surgeon who advised him come emergency from for laboratory studies and CT. (Kale Ness) This patient has 42-year-old man who presents to have evaluation of abdominal p ain, perianal pain, and Keny discharge. Patient's history is notable for having had diverticulitis. He did have recent course of antibiotics, taking levofloxacin and another antibiotic which she just finished last week. The patient noted that his symptoms had not really improved much, and then he started to have worsening drainage and abdominal as well as perianal pain within the past couple of days. Patient has not noted fever or chills. No change in urination. No nausea or vomiting (Vitaliy Cardoza) - Related Data Previous Rx's Medication Instructions Recorded Levofloxacin [Levaquin] 750 mg PO DAILY 1 Days #1 tab 12/02/22 metroNIDAZOLE [Flagyl] 500 mg PO TID #21 tab 12/02/22 Allergies Allergy/AdvReac Type Severity Reaction Status Date / Time codeine Allergy Unknown Verified 12/02/22 17:53 Childhood Review of Systems ROS Other: All systems not noted in ROS Statement are negative. <Kale Ness - Last Filed: 12/02/22 14:08> ROS Other: All systems not noted in ROS Statement are negative. Constitutional: Denies: fever, chills, weakness Respiratory: Denies: cough, dyspnea Cardiovascular: Denies: chest pain, palpitations, edema Gastrointestinal: Reports: abdominal pain, other (Bloody/mucous perianal discharge). Denies: nausea, vomiting, diarrhea, constipation, melena, hematochezia Genitourinary: Denies: dysuria, frequency, hematuria, testicular pain, minda ticular mass Musculoskeletal: Denies: back pain Skin: Denies: rash Neurological: Denies: headache, weakness, numbness <SherrybenjamínVitaliy - Last Filed: 12/08/22 09:05> ROS Statement: Those systems with pertinent positive or pertinent negative responses have been documented in the HPI. Past Medical History Past Medical History: Hypertension Additional Past Medical History / Comment(s): diverticulosis,diverticulitis, History of Any Multi-Drug Resistant Organisms: MRSA Date of last positivie culture/infection: 2014 MDRO Source:: Right arm Past Surgical History: Back Surgery, Bariatric Surgery, Bowel Resection, Orthopedic Surgery Additional Past Surgical History / Comment(s): fistula repair. back surgery L4- L5. rt knee arthroscopy. EGD/colonoscopies. gastric sleeve 06/23/21 Past Anesthesia/Blood Transfusion Reactions: No Reported Reaction Additional Past Anesthesia/Blood Transfusion Reaction / Comment(s): no hx blood transfusion Past Psychological History: No Psychological Hx Reported Smoking Status: Never smoker Past Alcohol Use History: Occasional Past Drug Use History: None Reported - Past Family History Father Family Medical History: No Reported History <Kale Ness - Last Filed: 12/02/22 14:08> General Exam Limitations: no limitations <Kale Ness Johnathon - Last Filed: 12/02/22 14:08> General appearance: alert, in no apparent distress Head exam: Present: atraumatic, normocephalic Eye exam: Present: normal appearance. Absent: scleral icterus, conjunctival injection Neck exam: Present: normal inspection Respiratory exam: Present: normal lung sounds bilaterally. Absent: respiratory distress, wheezes, rales, rhonchi, stridor Cardiovascular Exam: Present: regular rate, normal rhythm, normal heart sounds. Absent: systolic murmur, diastolic murmur, rubs, gallop GI/Abdominal exam: Present: soft, tenderness (Mild left abdominal tenderness). Absent: distended, guarding, rebound, rigid, mass, pulsatile mass, hernia Rectal exam: Present: tenderness, other (There is some swelling and tenderness at the 12 o'clock position with a small amount of bloody/purulent drainage.) Extremities exam: Present: normal inspection, normal capillary refill. Absent: pedal edema, calf tenderness Back exam: Present: normal inspection. Absent: CVA tenderness (R), CVA tenderness (L) <Vitaliy Cardoza - Last Filed: 12/08/22 09:05> - General Exam Comments Initial Comments: Visual Physical Exam Vital signs reviewed General: Well-appearing, nontoxic, no acute distress. Head: Normocephalic, atraumatic Eyes: PERRLA, EOMI ENT: Airway patent Chest: Nonlabored breathing Skin: No visual rash, normal skin tone Neuro: Alert and oriented 3 Musculoskeletal: No gross abnormalities (Kale Ness) Course Vital Signs 12/02/22 12/02/22 12/02/22 12:41 15:56 17:38 Temperature 97.9 F 98.1 F Pulse Rate 64 61 80 Respiratory 18 18 18 Rate Blood Pressure 150/94 130/87 132/88 O2 Sat by Pulse 100 100 100 Oximetry 12/02/22 18:44 Temperature 98.1 F Pulse Rate 73 Respiratory 18 Rate Blood Pressure 133/97 O2 Sat by Pulse 100 Oximetry Medical Decision Making <Kale Ness - Last Filed: 12/02/22 14:08> - Lab Data Result diagrams: 12/02/22 14:24 12/02/22 14:24 <Vitaliy Cardoza - Last Filed: 12/08/22 09:05> - Medical Decision Making I performed a quick note portion of this chart signed Kale Ness PA-C (Kale Ness) The patient had computed tomography scan of the abdomen pelvis which I interpreted as not showing presence of acute diverticulitis, free air, obstruction. Was pt. sent in by a medical professional or institution (Dr. PA, SUPERVISOR YARD, urgent care, hospital, or half-way...) When possible be specific @ -[No] Did you speak to anyone other than the patient for history (EMS, parent, family, police, friend...)? What history was obtained from this source @ -[No] Did you review nursing and triage notes (agree or disagree)? Why? @ -[I reviewed and agree with nursing and triage notes] Were old charts reviewed (outside hosp., previous admission, EMS record, old EKG, old radiological studies, urgent care reports/EKG's, half-way records)? Report findings @ -[No old charts were reviewed] Differential Diagnosis (chest pain, altered mental status, abdominal pain women, abdominal pain men, vaginal bleeding, weakness, fever, dyspnea, syncope, headache, dizziness, GI bleed, back pain, seizure, CVA, palpatations, mental health, musculoskeletal)? @ -[Differential Abdominal Pain Men: Appendicitis, cholecystitis, diverticulosis, ischemic bowel, pancreatitis, hepatitis, UTI, gastroenteritis, AAA, incarcerated hernia, bowel obstruction, constipation, inflammatory bowel, hepatitis, peptic ulcer disease, splenic infarction, perforated viscus, testicular torsion, this is not meant to be an all-inclusive list EKG interpreted by me (3pts min.). @ -[As above] X-rays interpreted by me (1pt min.). @ -[None done] CT interpreted by me (1pt min.). @ -I interpreted as above U/S interpreted by me (1pt. min.). @ -[None done] What testing was considered but not performed or refused? (CT, X-rays, U/S, labs)? Why? @ -[None] What meds were considered but not given or refused? Why? @ -[None] Did you discuss the management of the patient with other professionals (prof dee deeionals i.e. , PA, SUPERVISOR YARD, lab, RT, psych nurse, social service technician, industrial training specialist, teacher, sheriffs officer, case management associate)? Give summary @ -[Case discussed with the patient's surgeon, Dr. Kayeania Was smoking cessation discussed for >3mins.? @ -[No] Was critical care preformed (if so, how long)? @ -[No] Were there social determinants of health that impacted care today? How? (Homelessness, low income, unemployed, alcoholism, drug addiction, transportation, low edu. Level, literacy, decrease access to med. care, prison, rehab)? @ -[No] Was there de-escalation of care discussed even if they declined (Discuss DNR or withdrawal of care, Hospice)? DNR status @ -[No] What co-morbidities impacted this encounter? (DM, HTN, Smoking, COPD, CAD, Cancer, CVA, ARF, Chemo, Hep., AIDS, mental health diagnosis, sleep apnea, morb id obesity)? @ -[None] Was patient admitted / discharged? Hospital course, mention meds given and route, prescriptions, significant lab abnormalities, going to OR and other pertinent info. @ -[Patient is 42-year-old man with abdominal pain as well as perianal pain and discharge. The patient had CT at does not reveal concerning intra-abdominal findings. I suspect that the perianal pain and drainage represent the previous abscess flaring up. Discussed this with Dr. Infante who requests that patient be started back on antibiotics and follow with him in clinic this afternoon. Patient understands and agreeable with this plan. We discussed return parameters Undiagnosed new problem with uncertain prognosis? @ -[No] Drug Therapy requiring intensive monitoring for toxicity (Heparin, Nitro, Insulin, Cardizem)? @ -[No] Were any procedures done? @ -[No] Diagnosis/symptom? @ -[Acute abdominal pain Acute perianal abscess Acute, or Chronic, or Acute on Chronic? @ -[Acute Uncomplicated (without systemic symptoms) or Complicated (systemic symptoms)? @ -[Uncomplicated Side effects of treatment? @ -[No] Exacerbation, Progression, or Severe Exacerbation? @ -[No] Poses a threat to life or bodily function? How? (Chest pain, USA, VT, pneumonia, PE, COPD, DKA, ARF, appy, cholecystitis, CVA, Diverticulitis, Homicidal, Suicidal, threat to staff... and all critical care pts) @ -[No (Vitaliy Cardoza) - Lab Data Lab Results 12/02/22 12/02/22 12/02/22 Range/Units 14:24 14:24 14:24 WBC 8.7 (3.8-10.6) k/uL RBC 5.48 (4.30-5.90) m/uL Hgb 15.7 (13.0-17.5) gm/dL Hct 48.6 (39.0-53.0) % MCV 88.7 (80.0-100.0) fL MCH 28.6 (25.0-35.0) pg MCHC 32.2 (31.0-37.0) g/dL RDW 13.2 (11.5-15.5) % Plt Count 227 (150-450) k/uL MPV 7.4 Neutrophils % 70 % Lymphocytes % 19 % Monocytes % 5 % Eosinophils % 4 % Basophils % 0 % Neutrophils # 6.1 (1.3-7.7) k/uL Lymphocytes # 1.7 (1.0-4.8) k/uL Monocytes # 0.4 (0-1.0) k/uL Eosinophils # 0.4 (0-0.7) k/uL Basophils # 0.0 (0-0.2) k/uL Sodium 141 (137-145) mmol/L Potassium 4.2 (3.5-5.1) mmol/L Chloride 104 (98-107) mmol/L Carbon Dioxide 26 (22-30) mmol/L Anion Gap 11 mmol/L BUN 18 (9-20) mg/dL Creatinine 0.76 (0.66-1.25) mg/dL Est GFR (CKD-EPI)AfAm >90 (>60 ml/min/1.73 sqM) Est GFR (CKD-EPI)NonAf >90 (>60 ml/min/1.73 sqM) Glucose 91 (74-99) mg/dL Plasma Lactic Acid Campbell 1.3 (0.7-2.0) mmol/L Calcium 9.3 (8.4-10.2) mg/dL Total Bilirubin 0.8 (0.2-1.3) mg/dL AST 28 (17-59) U/L ALT 22 (4-49) U/L Alkaline Phosphatase 57 (38-126) U/L C-Reactive Protein (<1.0) mg/dL Total Protein 7.1 (6.3-8.2) g/dL Albumin 4.3 (3.5-5.0) g/dL Lipase 107 (23-300) U/L Urine Color Urine Appearance (Clear) Urine pH (5.0-8.0) Ur Specific Jay (1.001-1.035) Urine Protein (Negative) Urine Glucose (UA) (Negative) Urine Ketones (Negative) Urine Blood (Negative) Urine Nitrite (Negative) Urine Bilirubin (Negative) Urine Urobilinogen (<2.0) mg/dL Ur Leukocyte Esterase (Negative) 12/02/22 12/02/22 Range/Units 14:24 15:30 WBC (3.8-10.6) k/uL RBC (4.30-5.90) m/uL Hgb (13.0-17.5) gm/dL Hct (39.0-53.0) % MCV (80.0-100.0) fL MCH (25.0-35.0) pg MCHC (31.0-37.0) g/dL RDW (11.5-15.5) % Plt Count (150-450) k/uL MPV Neutrophils % % Lymphocytes % % Monocytes % % Eosinophils % % Basophils % % Neutrophils # (1.3-7.7) k/uL Lymphocytes # (1.0-4.8) k/uL Monocytes # (0-1.0) k/uL Eosinophils # (0-0.7) k/uL Basophils # (0-0.2) k/uL Sodium (137-145) mmol/L Potassium (3.5-5.1) mmol/L Chloride (98-107) mmol/L Carbon Dioxide (22-30) mmol/L Anion Gap mmol/L BUN (9-20) mg/dL Creatinine (0.66-1.25) mg/dL Est GFR (CKD-EPI)AfAm (>60 ml/min/1.73 sqM) Est GFR (CKD-EPI)NonAf (>60 ml/min/1.73 sqM) Glucose (74-99) mg/dL Plasma Lactic Acid Campbell (0.7-2.0) mmol/L Calcium (8.4-10.2) mg/dL Total Bilirubin (0.2-1.3) mg/dL AST (17-59) U/L ALT (4-49) U/L Alkaline Phosphatase (38-126) U/L C-Reactive Protein 0.7 (<1.0) mg/dL Total Protein (6.3-8.2) g/dL Albumin (3.5-5.0) g/dL Lipase (23-300) U/L Urine Color Colorless Urine Appearance Clear (Clear) Urine pH 7.0 (5.0-8.0) Ur Specific Jay 1.022 (1.001-1.035) Urine Protein Negative (Negative) Urine Glucose (UA) Negative (Negative) Urine Ketones 1+ H (Negative) Urine Blood Negative (Negative) Urine Nitrite Negative (Negative) Urine Bilirubin Negative (Negative) Urine Urobilinogen <2.0 (<2.0) mg/dL Ur Leukocyte Esterase Negative (Negative) Disposition <Kale Ness - Last Filed: 12/02/22 14:08> Is patient prescribed a controlled substance at d/c from ED?: No <Vitaliy Cardoaz - Last Filed: 12/08/22 09:05> Clinical Impression: Perianal abscess Disposition: HOME SELF-CARE Condition: Good Instructions (If sedation given, give patient instructions): Abscess (ED) Additional Instructions: As we discussed, see Dr. Infante in the clinic tomorrow afternoon. Prescriptions: metroNIDAZOLE [Flagyl] 500 mg PO TID #21 tab Levofloxacin [Levaquin] 750 mg PO DAILY 1 Days #1 tab Referrals: None,Stated [Primary Care Provider] - 1-2 days
[2022-12-02 14:34] LABS: Basophils % (A) 0 %; Eosinophils # (A) 0.4 k/uL (0-0.7); Eosinophils % (A) 4 %; HCT 48.6 % (39.0-53.0); HGB 15.7 gm/dL (13.0-17.5); Lymphocytes # (A) 1.7 k/uL (1.0-4.8); Lymphocytes % (A) 19 %; MCH 28.6 pg (25.0-35.0); MCHC 32.2 g/dL (31.0-37.0); MCV 88.7 fL (80.0-100.0); Mean Platelet Volume 7.4; Monocytes # (A) 0.4 k/uL (0-1.0); Monocytes % (A) 5 %; Neutrophils # (A) 6.1 k/uL (1.3-7.7); Neutrophils % (A) 70 %; Platelet Count 227 k/uL (150-450); RBC 5.48 m/uL (4.30-5.90); RDW 13.2 % (11.5-15.5); WBC 8.7 k/uL (3.8-10.6)
[2022-12-02 14:50] LABS: ALT 22 U/L (4-49); AST 28 U/L (17-59); African American GFR (CKD) >90 (>60 ml/min/1.73 sqM); Albumin 4.3 g/dL (3.5-5.0); Alkaline Phosphatase 57 U/L (38-126); Anion Gap 11 mmol/L; Blood Urea Nitrogen 18 mg/dL (9-20); Calcium 9.3 mg/dL (8.4-10.2); Carbon Dioxide 26 mmol/L (22-30); Chloride 104 mmol/L (98-107); Glucose 91 mg/dL (74-99); Lipase 107 U/L (23-300); Non-African American GFR(CKD) >90 (>60 ml/min/1.73 sqM); Potassium 4.2 mmol/L (3.5-5.1); Sodium 141 mmol/L (137-145); Total Bilirubin 0.8 mg/dL (0.2-1.3); Total Protein 7.1 g/dL (6.3-8.2)
[2022-12-02 16:04] VITALS: TEMP 98.1
[2022-12-02 16:10] LABS: Appearance,Urine Clear (Clear); Bilirubin,Urine Negative (Negative); Blood,Urine Negative (Negative); Color,Urine Colorless; Glucose,Urine (UA) Negative (Negative); Ketones,Urine 1+ (Negative); Leukocyte Esterase,Urine Negative (Negative); Nitrite,Urine Negative (Negative); Protein,Urine Negative (Negative); Specific Gravity,Urine 1.022 (1.001-1.035); Urobilinogen,Urine <2.0 mg/dL (<2.0)
--- NOTE | 2022-12-02 18:00 | CT ---
EXAMINATION TYPE: CT abdomen pelvis w con CT DLP: 1237.7 mGycm, Automated exposure control for dose reduction was used. DATE OF EXAM: 12/02/2022 5:34 PM COMPARISON: CT abdomen pelvis most recent from 11/23/2022 . CLINICAL INDICATION:Male, 42 years old with history of L abdominal pain; abdominal pain TECHNIQUE: Standard CT of the abdomen and pelvis following the administration of 100 cc of Isovue 3 00 IV contrast material. Coronal and sagittal reformats were performed. FINDINGS: LOWER CHEST: Unremarkable ABDOMEN LIVER: Unremarkable GALLBLADDER AND BILE DUCTS: Unremarkable. PANCREAS: Unremarkable. SPLEEN: Unremarkable. ADRENAL GLANDS: Unremarkable. KIDNEYS AND URETERS: No evidence of hydronephrosis or renal calculus. The kidneys enhance symmetrical ly. Contrast is demonstrated within both collecting systems on the delayed phase. PELVIS BLADDER: Unremarkable REPRODUCTIVE: Unremarkable. ABDOMEN & PELVIS STOMACH AND BOWEL: Postsurgical changes from gastric sleeve. Postsurgical changes with anastomosis at the rectum. No focal bowel wall thickening or surrounding inflammatory changes. No evidence of bowel obstruction. PERITONEUM: No evidence of pneumoperitoneum or free fluid. VASCULATURE: No evidence of aortic aneurysm. MUSCULOSKELETAL: No acute osseous abnormalities LYMPH NODES: No gross evidence for lymphadenopathy. SOFT TISSUE/ABDOMINAL WALL: Unremarkable IMPRESSION: No acute abdominal/pelvic process.
[2022-12-02] MEDS ORDERED: metroNIDAZOLE 500 MG TAB PO STA (18:27)
[2022-12-02] MEDS ORDERED: LEVOFLOXACIN 750 MG TAB PO STA (18:27)
[2022-12-02 18:46] VITALS: BP 133/97; PULSE 73
== END 2022-12-02 18:49 | disposition home or self-care (01) ==
LOC: EC 12:39
DX: K61.0 Anal abscess (principal); R10.13 Epigastric pain; I10 Essential (primary) hypertension; Z88.5 Allergy status to narcotic agent
CPT/HCPCS: 99284; 36415; 80053; 83605; 83690; 85025; 86140; 81003; 74177; Q9967

== ENCOUNTER 2022-12-28 08:32 | Day surgery (SDC) | payer OTHER ==
[2022-12-25 09:05] VITALS: BMI 26.3
[~2022-12-28 08:32] MED LIST changes: +ACETAMINOPHEN TAB 500 MG TAB PO PRN; +DEXAMETHASONE SOD PHOSPHATE 4 MG/ML 1 ML VIAL IV ONE; -ENOXAPARIN 40 MG/0.4 ML SYRINGE SQ PRN; +HEPARIN SODIUM,PORCINE/PF 5,000 UNIT/0.5 ML SYRINGE SQ PRN; +HYDROmorphone 0.5 MG/0.5 ML SYRINGE IVP PRN; +LACTATED RINGERS 1,000 ML IV SCH; +LIDOCAINE 1% (10MG/ML) FOR IV START INTRADERMA PRN; +ONDANSETRON 4 MG/2 ML VIAL IVP ONE; +Pre Op ABX Message 1 EACH MISC MISCELLANE ONE; -ceFAZolin 3 GM in SODIUM CHLORIDE 0.9% 100 ML IVPB PRN; +droPERidol 5 MG/2 ML VIAL IVP PRN
[2022-12-28] MEDS ORDERED: MIDAZOLAM 2 MG/2 ML VIAL IVP ONE (09:22)
[2022-12-28] MEDS ORDERED: PROPOFOL 10 MG/ML 20 ML VIAL IV ONE (10:04)
[2022-12-28] MEDS ORDERED: ceFAZolin 1,000 MG VIAL ONE (10:04)
[2022-12-28] MEDS ORDERED: MIDAZOLAM 2 MG/2 ML VIAL ONE (10:04)
[2022-12-28] MEDS ORDERED: KETAMINE HCL IN 0.9 % NACL 50 MG/5 ML SYRINGE ONE (10:04)
[2022-12-28] MEDS ORDERED: LIDOCAINE 1% INJ 10MG/ML (20 ML MDV) ONE (10:04)
[2022-12-28] MEDS ORDERED: fentaNYL (PF) 50 MCG/ML 2 ML AMP ONE (10:04)
[2022-12-28] MEDS ORDERED: SUCCINYLCHOLINE CHLORIDE 200 MG/10 ML VIAL IV ONE (10:04)
[2022-12-28] MEDS ORDERED: SODIUM CHLORIDE 0.9% 100 ML BAG ONE (10:04)
[2022-12-28] MEDS ORDERED: SODIUM CHLORIDE 0.9% 50 ML with ceFAZolin 2,000 MG IV ONE ×2 (10:35)
[2022-12-28] MEDS ORDERED: BUPIVACAINE (PF) 0.25% 30 ML VIAL SQ ONE (10:38)
--- NOTE | 2022-12-28 10:51 | P.OP ---
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 He received general endotracheal tube anesthesia. His then placed in the prone jackknife position. His anus was prepped and draped usual sterile fashion. The anus was visualized. There is evidence of inflammatory change at the 6 o'clock position of the anus. There was also evidence of external hemorrhoids. Using an anal probe the inflamed area was examined. There is evidence of a fistula. The fistula entered the rectum. The fistula was then unroofed using electrocautery. There is no other patient was seen. The external hemorrhoid was excised using the Harmonic scissors. The wound was checked for hemostasis. Several small bleeding points were coagulated with electrocautery. The patient tolerated procedure well. She he was sent to recovery room in stable condition.
[2022-12-28] MEDS ORDERED: droPERidol 5 MG/2 ML VIAL IVP ONE (11:09)
[2022-12-28 11:22] VITALS: TEMP 97
[2022-12-28 11:43] VITALS: RESP 16
[2022-12-28 12:28] VITALS: BP 102/75; PULSE 50
== END 2022-12-28 13:03 | disposition home or self-care (01) ==
LOC: OR 08:32
PROVIDERS: ATTEND Surgery
DX: K61.1 Rectal abscess (principal); Z79.2 Long term (current) use of antibiotics; Z88.5 Allergy status to narcotic agent; Z98.890 Other specified postprocedural states
CPT/HCPCS: 46999; J2250; J0330; J1100; J2405; J0690; J2001; J3010; J2704; J1790; J1644; J0665; 88304